=== PATIENT | female | born 2000 | race Caucasian/White ===

== ENCOUNTER 2019-04-10 23:38 | Emergency (ER) | payer MEDICAID, SELFPAY ==
[2019-04-10 23:39] VITALS: BP 136/66; PULSE 112; RESP 16; TEMP 36.2; O2SAT 100
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
[2019-04-11] MEDS: SODIUM CHLORIDE 0.9% IV 1,000 ML 999 ML IV CONT (00:44)
[2019-04-11] MEDS: PROMETHAZINE HCL 25 MG/ML AMPUL 12.5 MG IV PUSH (00:44)
[2019-04-11 00:51] LABS: Basophils Percent Auto 0.3 % (0.2-1.2); Eosinophils Absolute Auto 0.1 K/mm3 (0-0.3); Eosinophils Percent Auto 0.9 % (0-4.4); Hematocrit 40.8 % (37.0-47.0); Hemoglobin 13.5 g/dL (12.0-15.0); Immature Granulocyte Absolute 0.02 K/mm3 (0.00-0.031); Immature Granulocyte Percent A 0.3 % (0-0.5); Immature Platelet Fraction Pct 5.7 % (0.9-11.2); Lymphocytes Percent Auto 12.9 % (18.3-44.2); Mean Corpuscular HGB Conc 33.1 g/dl (32-36); Mean Corpuscular Hemoglobin 28.7 pg (26-34); Mean Corpuscular Volume 86.6 fl (80-100); Mean Platelet Volume 11.8 fl (7.4-10.4); Monocytes Absolute Auto 0.7 K/mm3 (0.1-0.6); Monocytes Percent Auto 9.3 % (2.6-8.5); Neutrophils Absolute Auto 5.3 K/mm3 (1.3-6.7); Neutrophils Percent Auto 76.3 % (45.5-73.1); Platelet Count Result 120 k/mm3 (150-375); Red Blood Count 4.71 M/mm3 (4.2-5.4); Red Cell Distribution Width 12.9 % (11.5-14.5)
[2019-04-11 01:02] LABS: Alanine Aminotransferase 20 U/L (4-35); Albumin Level 4.8 g/dL (3.5-5.1); Alkaline Phosphatase 60 U/L (38-126); Aspartate Amino Transferase 30 U/L (14-36); Bilirubin,Total 0.5 mg/dL (0.2-1.3); Blood Urea Nitrogen 10 mg/dL (7-17); Calcium 9.6 mg/dL (8.4-10.2); Carbon Dioxide 25 mmol/L (22-30); Chloride 97 mmol/L (98-107); Estimated CRCL calculation 141 ml/min; Estimated Glomerular Filt Rate > 60; Glucose 83 mg/dL (65-105); Lipase 49 U/L (23-300); Potassium 3.5 mmol/L (3.4-5.0); Sodium 137 mmol/L (137-145)
[2019-04-11 03:46] LABS: Add Urine Microscopic? YES; Appearance Urine Cloudy (Clear); Bacteria Urine Trace /hpf; Bilirubin Urine Negative (Negative); Blood Urine 1+ (Negative); Color Urine Yellow (Yellow); Glucose Urine UA Negative (Negative); Ketones Urine Negative (Negative); Leukocyte Esterase Ur 1+ LEU/UL (Negative); Mucus Urine Rare /lpf; Nitrate Urine Negative (Negative); Protein Urine Negative (Negative); Specific Grav Ur 1.018 (1.001-1.035); Squamous Epithelial Cell Urine Many /hpf (Few); Urobilinogen Urine Negative mg/dL (<2.0); WBC Urine 16-20 /hpf
[2019-04-11] MEDS: ONDANSETRON INJ 4 MG/2 ML VIAL IV PUSH (03:55)
[2019-04-11 04:44] VITALS: BP 122/60; PULSE 111; RESP 18; O2SAT 100
[2019-04-11 05:14] VITALS: BP 128/77; PULSE 102; RESP 18; O2SAT 98
== END 2019-04-11 05:14 | disposition home or self-care (01) ==
PROVIDERS: Emergency Provider Emergency Medicine
DX: O21.9 Vomiting of pregnancy, unspecified (principal); Z3A.11 11 weeks gestation of pregnancy
CPT/HCPCS: 36415; 80053; 81001; 83690; 85025; 85055; 87086; 87088; 96361; 96374; 96375; 99284; J2405; J2550; J7030

== ENCOUNTER → 2019-04-15 13:47 | Outpatient (CLI) | payer MEDICAID, SELFPAY ==
--- NOTE | ~2019-04-15 | US_ITS ---
EXAMINATION: US OB transvaginal DATE: 04/15/2019 14:20 INDICATION: Miscarriage. Evaluate for viability. TECHNIQUE: Real-time transabdominal and transvaginal obstetric ultrasound. FINDINGS: Comparison ultrasound dated 03/21/2019 The uterus measures 9 x 6.2 x 6.3 cm. There is an intrauterine gestational sac, with pole ident ified. The crown rump length measures 1.9 cm, which correlates with a estimated gestational age of 8 weeks 3 days. heart tones are identified measuring 11/22/2019. There is an heterogeneous area adjacent to the gestational sac on the right measuring 2 x 1.5 x 0.9 cm, likely a subchorionic hemor rhage. Uterus is retroverted. There is an echogenic focus in the left ovary measuring 1.6 x 1.4 x 1 c m which may represent hemorrhagic cyst or calcification. IMPRESSION: 1. SL IUP with an EGA of 8 weeks, 3 days (EDC by current ultrasound of 11/22/2019). 2: Heterogeneous area to the right of the gestational sac measuring 2 x 1.5 x 0.9 cm, possibly a sma ll subchorionic hemorrhage. Reviewed, dictated and finalized at location A. RESS RENOVATOR IMPRESSION: 1. SL IUP with an EGA of 8 weeks, 3 days (EDC by current ultrasound of 0). 2: Heterogeneous area to the right of the gestational sac measuring 2 x 1.5 x 0.9 cm, possibly a small subchorionic hemorrhage.
== END ==
PROVIDERS: Visit Provider Obstetrics & Gynecology
DX: O20.0 Threatened abortion (principal); Z3A.08 8 weeks gestation of pregnancy
CPT/HCPCS: 99199; 76817

== ENCOUNTER 2019-04-29 14:16 | Outpatient (CLI) | payer OTHER, SELFPAY ==
--- NOTE | ~2019-04-29 | US_ITS ---
EXAMINATION: US OB follow up EXAM DATE: 04/29/2019 15:04 INDICATION: Follow-up subchorionic hemorrhage. First trimester. TECHNIQUE: Pelvic obstetrical transabdominal sonogram was performed by a technologist. There are mu ltiple grayscale and Doppler images available for interpretation. Comparison is made to prior examina tion from 04/15/2019. FINDINGS: Uterus measures 13.4 x 7.8 x 5.0 cm. There is intrauterine gestation sac. pole with heart rate confirmed at 161 beats per minute. The 3 cm crown-rump length corresponds to estimated g estational age by ultrasound of 10 weeks 0 days, estimated date of confinement 11/25/2019. Yolk sac i s identified. Again there is a region in subchorionic location which is heterogeneous in echogenici ty, size unchanged. Possible subchorionic hemorrhage measuring 2.0 x 1.3 x 1.3 cm. Ovaries are morph ologically normal. IMPRESSION: Persistent small subchorionic heterogeneous region, possible subchorionic hemorrhage. Fe leidy heart rate 161 bpm. Reviewed, dictated and finalized at location A. TEACHER IMPRESSION: Persistent small subchorionic heterogeneous region, possible subch orionic hemorrhage. heart rate 161 bpm.
== END 2019-04-29 14:17 | disposition home or self-care (01) ==
LOC: ANHIMG 14:22
PROVIDERS: Visit Provider Obstetrics & Gynecology
DX: Z34.90 Encounter for supervision of normal pregnancy, unspecified, unspecified trimester (principal); O36.8911 Maternal care for other specified fetal problems, first trimester, fetus 1
CPT/HCPCS: 76816

== ENCOUNTER 2019-05-13 11:12 | Outpatient (CLI) | payer OTHER, SELFPAY ==
--- NOTE | ~2019-05-13 | US_ITS ---
EXAMINATION: US OB <=14 wk fetus w TV DATE: 05/13/2019 12:35 INDICATION: Subchorionic hemorrhage follow-up, first trimester TECHNIQUE: Real-time pelvic transabdominal and transvaginal ultrasound was performed. COMPARISON: 04/29/2019, 02/12/2018 FINDINGS: The uterus measures 11.3 x 8.3 x 7.8 cm. There is an intrauterine gestational sac. No pers istent subchorionic hemorrhage is identified. heart motion is identified measuring 147 beats pe r minute (bpm) by M-mode Doppler. The crown rump length measures 5.7 cm , which correlates with an estimated gestational age of 12 weeks and 2 day(s) (+/-) 8 day(s). The right ovary measures 3.8 x 1.6 x 3.3 cm. The left ovary measures 2.9 x 2.6 x 2.0 cm and contains a 1.3 cm echogenic focus. There is no free fluid in the pelvis. IMPRESSION: 1. Live intrauterine with an estimated gestational age of 12 weeks and 2 day(s) (+/-) 8 day (s) and an estimated delivery date of 11/23/2019. 2. No persistent subchorionic hematoma identified. 3. Chronic echogenic focus of the left ovary which may reflect a dermoid. Reviewed, dictated and finalized at location A. IMPRESSION: 1. Live intrauterine with an estimated gestational age of 12 weeks an d 2 day(s) (+/-) 8 day(s) and an estimated delivery date of 11/23/2019. 2. No persistent subchorionic hematoma identified. 3. Chronic echogenic focus of the left ovary which may reflect a dermoid.
== END 2019-05-13 11:13 | disposition home or self-care (01) ==
LOC: ANHIMG 11:18
PROVIDERS: Visit Provider Obstetrics & Gynecology
DX: O41.8X99 Other specified disorders of amniotic fluid and membranes, unspecified trimester, other fetus (principal); Z3A.12 12 weeks gestation of pregnancy
CPT/HCPCS: 76801; 76817

== ENCOUNTER 2019-06-05 05:07 | Emergency (ER) | payer OTHER, SELFPAY ==
[2019-06-05] VITALS (7 sets, daily range): BP systolic 101–120; BP diastolic 54–76; PULSE 69–81; RESP 16–18; TEMP 37.2–37.6; O2SAT 99–100
--- NOTE | ~2019-06-05 | US_ITS ---
EXAMINATION: US OB >= 14 weeks Fetus DATE: 06/05/2019 07:42 INDICATION: Abdominal pain. Spotting. TECHNIQUE: Real-time ultrasound of the pelvis was performed. COMPARISON: Ultrasound 05/13/2019, 03/21/19, 04/15/19 FINDINGS: There is a single living fetus in variable presentation. The placenta is anterior and covers the int ernal cervical os. heart rate is 139 beats per minute (bpm). The amniotic fluid index is 11.0 c m, which is normal. The cervical length is 2.6 cm on transabdominal images, which is normal. The following biometric data were obtained: Biparietal diameter (BPD): 3.3 cm; head circumference (HC): 11.8 cm; abdominal circumference (AC): 9. 4 cm; femur length (FL): 1.9 cm. These measurements are concordant. Estimated weight is 131 g +/- 20 g, which correlates with 37th percentile when 11/22/19 is used as estimated date of delivery. As single measurements, these parameters are each equal to the following estimated gestational ages: BPD: 16 weeks 2 days. HC: 15 weeks 6 days. AC: 15 weeks 4 days. FL: 15 weeks 5 days. estimated gestational age based solely on measurements from this exam is 15 weeks 6 days +/- 1 weeks 1 days. IMPRESSION: 1. Single living fetus in variable presentation. 2. Estimated weight is 131 g +/- 20 g, which correlates with 37th percentile when 11/22/19 is u sed as estimated date of delivery. This date was set by ultrasound on 04/15/2019. 3. Placenta previa. Reviewed, dictated and finalized at location A. IMPRESSION: 1. Single living fetus in variable presentation. 2. Estimated weight is 131 g +/- 20 g, which correlates with 37th percen tile when 11/22/19 is used as estimated date of delivery. This date was set by u ltrasound on 04/15/2019. 3. Placenta previa.
--- NOTE | 2019-06-05 05:24 | ED.PREGNANCY ---
HPI - General Chief complaint: DESK REPORTER <Wing Parson DO - Last Filed: 06/05/19 20:02> Stated complaint: 16 wks preg, vag bleed <Wing Parson DO - Last Filed: 06/05/19 20:02> Time Seen by Provider: 06/05/19 05:11 <Wing Parson DO - Last Filed: 06/05/19 20:02> Source: RN notes reviewed <Wing Parson DO - Last Filed: 06/05/19 20:02> History of Present Illness HPI Narrative: Patient presents emergency department from home for vaginal bleeding. Patient states that she is currently 16 weeks [address] followed by Dr. Woodson. States that night at approximately 10 PM began to have some vaginal bleeding that she describes as spotting. States she also developed some lower abdominal cramping with the symptoms. Patient states the bleeding seems to have decreased but she continues to have cramping. She states that she was last seen by Dr. Woodson 2 weeks ago and states that she was told she had some hemorrhaging by her baby. Patient denies any fevers or chills states she did have one episode of emesis with the cramping. She states she took no previous medication for cramping <DO Cindy Bautista Last Filed: 06/05/19 20:02> Related Data Home medications: Home Medications Medication Instructions Recorded Confirmed PNV cmb#95-ferrous fumarate-FA 1 tablet PO DAILY 04/10/19 04/10/19 [] folic acid 06/05/19 progesterone micronized mg 06/05/19 <Wing Parson DO - Last Filed: 06/05/19 20:02> Allergies/Adverse reactions: Allergies Allergy/AdvReac Type Severity Reaction Status Date / Time No Known Allergies Allergy Verified 06/05/19 05:25 <Wing Parson DO - Last Filed: 06/05/19 20:02> Review of Systems Review of Systems: Narrative: Gen.: Denies fevers or chills ENT: Denies congestion Respiratory: Denies shortness of breath or cough CV: Denies chest pain or palpitations GI: Reports lower abdominal pain described as cramping, reports one episode nausea vomiting see HPI Musculoskeletal: Denies back pain or muscle pain Neuro: Denies numbness, tingling, weakness or focal weakness Skin: Denies rash Except as documented, all other systems reviewed and negative <Wing Parson DO - Last Filed: 06/05/19 20:02> [facility] Past Medical History Medical History: Medical History Patient denies significant medical history <Wing Parson DO - Last Filed: 06/05/19 20:02> Social History Social History: Social History Smoking status: Never smoker Gender identity (if verbalized by the patient): Female <Wing Parson DO - Last Filed: 06/05/19 20:02> Exam Narrative: Exam Narrative: APPEARANCE: No acute distress, nontoxic, resting in bed EYES: EOMI HEENT: Normocephalic, atraumatic, OMM RESPIRATORY: No respiratory distress Clear to auscultation bilaterally with no rhonchi wheezing or rales. CARDIOVASCULAR: Regular rate and rhythm without murmurs rubs or gallops. ABDOMINAL: Soft, nondistended, tender palpation suprapubic region, no tenderness in right upper quadrant, left upper quadrant, right lower quadrant left lower quadrant, rebound or guarding : Normal external exam, small amount of dark brown cervix is closed MUSCULOSKELETAl: Moves all extremities. No clubbing, cyanosis or edema. NEURO: Awake and alert. Following commands, speech normal, no focal deficits SKIN:: Warm, dry. No rashes lesions or abrasions PSYCHIATRIC: Normal affect/mood, <Wing Parson DO - Last Filed: 06/05/19 20:02> Course Course Emergency Course: Reviewed old records. Patient with blood bank results from 02/12/2018 showing A+ blood type <Wing Parson DO - Last Filed: 06/05/19 20:02> Vital Signs Vital signs: Vital Signs Temperature 99.6 F 06/05/19 05:17 Pulse Rate 81 06/05/19 05:17 Respira
[2019-06-05] MEDS: LACTATED RINGERS 1,000 ML 999 ML IV CONT (05:48)
[2019-06-05 05:52] LABS: Basophils Percent Auto 0.3 % (0.2-1.2); Eosinophils Absolute Auto 0.1 K/mm3 (0-0.3); Eosinophils Percent Auto 1.1 % (0-4.4); Hematocrit 31.1 % (37.0-47.0); Hemoglobin 10.8 g/dL (12.0-15.0); Immature Granulocyte Absolute 0.02 K/mm3 (0.00-0.031); Immature Granulocyte Percent A 0.3 % (0-0.5); Lymphocytes Absolute Auto 1.96 K/mm3 (0.9-3.2); Lymphocytes Percent Auto 27.8 % (18.3-44.2); Mean Corpuscular HGB Conc 34.7 g/dl (32-36); Mean Corpuscular Hemoglobin 29.9 pg (26-34); Mean Corpuscular Volume 86.1 fl (80-100); Mean Platelet Volume 12.3 fl (7.4-10.4); Monocytes Absolute Auto 0.6 K/mm3 (0.1-0.6); Monocytes Percent Auto 8.4 % (2.6-8.5); Neutrophils Absolute Auto 4.4 K/mm3 (1.3-6.7); Neutrophils Percent Auto 62.1 % (45.5-73.1); Platelet Count Result 137 k/mm3 (150-375); Red Blood Count 3.61 M/mm3 (4.2-5.4); Red Cell Distribution Width 13.4 % (11.5-14.5); White Blood Count 7.1 K/mm3 (4.5-10.0)
[2019-06-05 06:19] LABS: Alanine Aminotransferase 11 U/L (4-35); Albumin Level 3.9 g/dL (3.5-5.1); Alkaline Phosphatase 45 U/L (38-126); Aspartate Amino Transferase 26 U/L (14-36); Bilirubin,Total 0.5 mg/dL (0.2-1.3); Blood Urea Nitrogen 6 mg/dL (7-17); Calcium 9.2 mg/dL (8.4-10.2); Carbon Dioxide 23 mmol/L (22-30); Chloride 106 mmol/L (98-107); Estimated CRCL calculation 196 ml/min; Estimated Glomerular Filt Rate > 60; Glucose 87 mg/dL (65-105); Potassium 3.9 mmol/L (3.4-5.0); Sodium 135 mmol/L (137-145)
== END 2019-06-05 09:14 | disposition home or self-care (01) ==
PROVIDERS: Emergency Provider Emergency Medicine
DX: O44.02 Complete placenta previa NOS or without hemorrhage, second trimester (principal); Z3A.16 16 weeks gestation of pregnancy
CPT/HCPCS: 36415; 76805; 80053; 85025; 96361; 96374; 99284; J0131; J7120

== ENCOUNTER 2019-06-08 10:19 | Outpatient (CLI) | payer OTHER, SELFPAY ==
--- NOTE | ~2019-06-08 | US_ITS ---
EXAMINATION: US OB follow up DATE: 06/08/2019 11:19 INDICATION: Placenta previa and cramping during second trimester of . TECHNIQUE: Real-time ultrasound of the pelvis was performed. The interpreting radiologist was not pre sent for the study. COMPARISON: 06/05/2019 FINDINGS: There is a single living fetus in transverse lie with head to maternal left. The placenta is anterior with caudal margin 4.4 cm from the internal cervical os. heart rate is 147 beats per minute (b pm). The amniotic fluid is subjectively normal. The following biometric data were obtained: BPD: 3.6 cm -> 17 weeks 1 days Head circumference: 13.4 cm -> 16 weeks 6 days Abdominal circumference: 10.7 cm -> 16 weeks 4 days Femur length: 2.1 cm -> 16 weeks 1 days These measurements are concordant. Head circumference to abdominal circumference ratio: 1.25 (normal range 1.07-1.30). Estimated weight: 157 g (+/-) 23 g. or 6 oz. (+/-) 1 oz. IMPRESSION: 1. Single living fetus in transverse lie with heart rate of 147 bpm. 2. Anterior placenta with caudal margin 4.4 cm from the internal cervical os. 3. Estimated weight is 62nd percentile by Hadlock criteria when 11/22/2019 is used as the estima jessee date of delivery (AUDREY). Please correlate with clinical information or earlier ultrasounds for mos t accurate AUDREY. Reviewed, dictated and finalized at location A. IMPRESSION: 1. Single living fetus in transverse lie with heart rate of 147 bpm. 2. Anterior placenta with caudal margin 4.4 cm from the internal cervical os. 3. Estimated weight is 62nd percentile by Hadlock criteria when 11/22/2019 is used as the estimated date of delivery (AUDREY). Please correlate with clinica l information or earlier ultrasounds for most accurate AUDREY.
== END 2019-06-08 10:20 | disposition home or self-care (01) ==
PROVIDERS: Visit Provider Obstetrics & Gynecology
DX: Z34.90 Encounter for supervision of normal pregnancy, unspecified, unspecified trimester (principal); Z3A.00 Weeks of gestation of pregnancy not specified
CPT/HCPCS: 76816

== ENCOUNTER 2019-08-22 23:44 | Observation (INO) | payer OTHER, SELFPAY ==
--- NOTE | 2019-08-22 23:43 | PC.NURSE ---
spoke with Slime MCCORMACK in L&D dept, pt taken via ED w/c to L&D by Wellington WHITT.
--- NOTE | 2019-08-22 23:44 | OBADM ---
This patient, Nona Stanley, admitted to the OB room OB Post 117 for observation. Patient/family oriented to hospital policies and general routines including ID bracelet, bed and alarms, visiting hours, pain management, procedures, bathroom and other care routines, personal items, smoking policy, room service/diet, and visiting hours. Patient/Family are encouraged to report perceived risks to care and to ask questions if they do not understand what they are told or what they should do.
[2019-08-23 00:10] VITALS: BP 114/50; PULSE 100
[2019-08-23 00:15] VITALS: BP 112/55; PULSE 97
[2019-08-23 01:03] VITALS: TEMP 36.7
[2019-08-23 01:15] VITALS: BMI 33.5
[2019-08-23 01:30] VITALS: BP 109/58; PULSE 86
--- NOTE | 2019-09-17 08:22 | PM.OBTRLD ---
OB - Triage/Final Diagnosis Visit Information Reason for evaluation: threatened labor
== END 2019-08-23 03:09 | disposition home or self-care (01) ==
PROVIDERS: Admitting Provider Obstetrics & Gynecology; Visit Provider Obstetrics & Gynecology
DX: O47.03 False labor before 37 completed weeks of gestation, third trimester (principal); Z3A.32 32 weeks gestation of pregnancy
CPT/HCPCS: G0378; G0379

== ENCOUNTER 2019-09-11 00:47 | Observation (INO) | payer OTHER, SELFPAY ==
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
[2019-09-11 00:34] VITALS: BP 122/70; PULSE 115; RESP 16; TEMP 37.2; O2SAT 100
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
--- NOTE | 2019-09-11 00:41 | PC.NURSE ---
Gave report to Moira MCCORMACK in OB pt transported via stretcher to OB.
[2019-09-11 01:03] VITALS: TEMP 36.5
[2019-09-11 01:13] VITALS: BMI 33.8
--- NOTE | 2019-09-11 01:22 | OBADM ---
This patient, Nona Stanley, admitted to the OB room OB Post 116 for observation. Patient/family oriented to hospital policies and general routines including ID bracelet, bed and alarms, visiting hours, pain management, procedures, bathroom and other care routines, personal items, smoking policy, room service/diet, and visiting hours. Patient/Family are encouraged to report perceived risks to care and to ask questions if they do not understand what they are told or what they should do.
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
[2019-09-11 01:36] VITALS: BP 98/40; PULSE 103
[2019-09-11 02:00] VITALS: BP 88/54; PULSE 104
[2019-09-11 02:28] LABS: Basophils Percent Auto 0.2 % (0.2-1.2); Eosinophils Absolute Auto 0.1 K/mm3 (0-0.3); Eosinophils Percent Auto 0.7 % (0-4.4); Hematocrit 29.1 % (37.0-47.0); Hemoglobin 9.8 g/dL (12.0-15.0); Immature Granulocyte Absolute 0.06 K/mm3 (0.00-0.031); Immature Granulocyte Percent A 0.5 % (0-0.5); Lymphocytes Absolute Auto 1.96 K/mm3 (0.9-3.2); Lymphocytes Percent Auto 17.1 % (18.3-44.2); Mean Corpuscular HGB Conc 33.7 g/dl (32-36); Mean Corpuscular Hemoglobin 30.5 pg (26-34); Mean Corpuscular Volume 90.7 fl (80-100); Mean Platelet Volume 12.1 fl (7.4-10.4); Monocytes Percent Auto 8.3 % (2.6-8.5); Neutrophils Absolute Auto 8.4 K/mm3 (1.3-6.7); Neutrophils Percent Auto 73.2 % (45.5-73.1); Platelet Count Result 122 k/mm3 (150-375); Red Blood Count 3.21 M/mm3 (4.2-5.4); Red Cell Distribution Width 13.2 % (11.5-14.5); White Blood Count 11.4 K/mm3 (4.5-10.0)
[2019-09-11 02:41] VITALS: BP 103/59; PULSE 96
[2019-09-11 02:41] LABS: Partial Thromboplastin Time 26.4 SECONDS (22.3-36.8)
[2019-09-11 02:42] LABS: Alanine Aminotransferase 8 U/L (4-35); Albumin Level 3.6 g/dL (3.5-5.1); Alkaline Phosphatase 83 U/L (38-126); Aspartate Amino Transferase 15 U/L (14-36); Bilirubin,Total 0.7 mg/dL (0.2-1.3); Blood Urea Nitrogen 6 mg/dL (7-17); Calcium 9.4 mg/dL (8.4-10.2); Carbon Dioxide 24 mmol/L (22-30); Chloride 104 mmol/L (98-107); Estimated CRCL calculation 181 ml/min; Estimated Glomerular Filt Rate > 60; Glucose 91 mg/dL (65-105); Potassium 3.7 mmol/L (3.4-5.0); Sodium 134 mmol/L (137-145)
[2019-09-11 03:04] LABS: Fibrinogen 283 mg/dl (215-510)
[2019-09-11 08:10] VITALS: BP 115/62; PULSE 99; TEMP 36.4
--- NOTE | 2019-09-11 09:16 | PM.OBTRLD ---
OB - Triage/Final Diagnosis Evaluation Laboratory results: Laboratory Tests 09/11/19 09/11/19 09/11/19 02:15 02:15 02:15 WBC 11.4 H RBC 3.21 L Hgb 9.8 L Hct 29.1 L MCV 90.7 MCH 30.5 MCHC 33.7 RDW 13.2 Plt Count 122 L MPV 12.1 H Immature Gran % (Auto) 0.5 Neut % (Auto) 73.2 H Lymph % (Auto) 17.1 L [place] % (Auto) 8.3 Eos % (Auto) 0.7 Baso % (Auto) 0.2 Lymph # (Auto) 1.96 [place] # (Auto) 1.0 H Eos # (Auto) 0.1 Baso # (Auto) 0.0 Abs Immat Gran (auto) 0.06 H Absolute Neuts (auto) 8.4 H Absolute Nucleated RBC 0.0 Nucleated RBC % 0.0 APTT 26.4 Fibrinogen 283 Sodium Potassium Chloride Carbon Dioxide BUN Creatinine Estim Creat Clear Calc Estimated GFR Glucose Calcium Total Bilirubin AST ALT Alkaline Phosphatase Total Protein Albumin Blood Type A Positive Antibody Screen Negative KB Hemoglobin Negative 09/11/19 02:15 WBC RBC Hgb Hct MCV MCH MCHC RDW Plt Count MPV Immature Gran % (Auto) Neut % (Auto) Lymph % (Auto) [place] % (Auto) Eos % (Auto) Baso % (Auto) Lymph # (Auto) [place] # (Auto) Eos # (Auto) Baso # (Auto) Abs Immat Gran (auto) Absolute Neuts (auto) Absolute Nucleated RBC Nucleated RBC % APTT Fibrinogen Sodium 134 L Potassium 3.7 Chloride 104 Carbon Dioxide 24 BUN 6 L Creatinine 0.40 L Estim Creat Clear Calc 181 Estimated GFR > 60 Glucose 91 Calcium 9.4 Total Bilirubin 0.7 AST 15 ALT 8 Alkaline Phosphatase 83 Total Protein 7.0 Albumin 3.6 Blood Type Antibody Screen KB Hemoglobin Vital signs: Vital Signs - 24 hr 09/11/19 00:34 09/11/19 01:03 09/11/19 01:36 Temperature 37.2 C 36.5 C Pulse Rate 115 H 103 H Respiratory Rate 16 Blood Pressure 122/70 98/40 L Pulse Oximetry 100 09/11/19 02:00 09/11/19 02:41 09/11/19 08:10 Temperature 36.4 C Pulse Rate 104 H 96 99 Respiratory Rate Blood Pressure 88/54 L 103/59 L 115/62 Pulse Oximetry Final Diagnosis (1) Abdominal trauma: Code(s): S39.91XA - Unspecified injury of abdomen, initial encounter Status: Acute
[2019-09-16 20:52] LABS: Thrombin Time 14 sec (13-19)
== END 2019-09-11 09:40 | disposition other institution (70) ==
PROVIDERS: Admitting Provider Obstetrics & Gynecology; Visit Provider Obstetrics & Gynecology
DX: O26.893 Other specified pregnancy related conditions, third trimester (principal); S39.91XA Unspecified injury of abdomen, initial encounter; Z3A.35 35 weeks gestation of pregnancy; Y04.2XXA Assault by strike against or bumped into by another person, initial encounter
CPT/HCPCS: 36415; 76815; 80053; 84112; 85025; 85384; 85460; 85670; 85730; 86850; 86900; 86901; G0378; G0379

== ENCOUNTER 2019-09-20 15:47 | Observation (INO) | payer OTHER, SELFPAY ==
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
[2019-09-20 16:15] VITALS: TEMP 35.7
[2019-09-20 16:16] VITALS: BP 116/59; PULSE 91
[2019-09-20 16:20] VITALS: BMI 39.4
[2019-09-20 16:31] VITALS: BP 113/62; PULSE 94
[2019-09-20 16:46] VITALS: BP 111/65; PULSE 85
[2019-09-20 17:01] VITALS: BP 108/63; PULSE 92
[2019-09-20 17:16] VITALS: BP 108/62; PULSE 88
--- NOTE | 2019-09-20 18:00 | PC.NURSE ---
Pt to ultrasound per wheelchair.
--- NOTE | 2019-09-30 08:55 | PM.OBDSVD ---
DS: Admitting Diagnosis Admitting Diagnosis Admitting Diagnosis: labor abdominal trauma DS: Discharge Diagnosis Discharge Diagnosis (1) Abdominal trauma: Code(s): S39.91XA - Unspecified injury of abdomen, initial encounter Status: Acute OB - DS: Summary Hospital Course Time spent discussing smoking cessation with patient: 3 to 10 minutes OB Procedures : None OB Procedures Intrapartum: Other OB Procedures: : None Status at Discharge Functional status at discharge: independent ambulation Overall status at discharge: patient is back to baseline Time Spent with Patient Time attestation: Total time spent providing and/or coordinating discharge services: Time spent: Less than 30 minutes Discharge Plan Discharge Attending physician on discharge: Todd Woodson Consulting providers: Ace Gonzalez Discharging Clinician: Todd Woodson Anticipated Discharge Date/Time: 09/20/19 20:47 Patient Disposition: Home, Self-Care Activity: as tolerated Diet: regular Wound Care Instructions: follow printed instructions Discharge Instructions: OB ANTEPARTUM DISCHARGE INSTRUCTIONS This information is given to help you properly care for yourself at home after your discharge from the hospital. Follow these instructions until your doctor tells you otherwise. DIET: Eat Three Well Balanced Meals per Day Drink at Least Eight 8-Ounce Glasses of Caffeine-Free Beverages Daily Additional Diet Instructions: ACTIVITY: As Tolerated Additional Activity Instructions: RETURN TO LABOR AND DELIVERY IF YOU HAVE: Any Change In Baby's Normal Movement Pattern More than 6 Contractions in an Hour Vaginal Bleeding Warning Signs of Pre-term Labor as per Handout Additional Reasons to Return to Labor and Delivery: Contractions may feel like abdominal pain, tightening, cramping, pressure, back ache, or thigh ache. 24 Hour Urine Collection: Continue 24 hour urine collection until at . When collection is completed, return specimen to the [facility]. See handout for 24 hour urine collection. OTHER INSTRUCTIONS: FOLLOW-UP CARE: Keep Next Scheduled Appointment To see in/on Valuables released to patient or family? Medications from home returned to patient? I Acknowledge Receipt of and Understand the Above Instructions IF YOU HAVE ANY QUESTIONS REGARDING THESE INSTRUCTIONS, PLEASE CALL [phone]. IF PROBLEMS ARISE, CALL YOUR PROVIDER. IF EMERGENCY CARE IS NEEDED, [facility]S EMERGENCY ROOM IS AVAILABLE 24 HOURS A DAY. Stand Alone Forms: General Discharge Information Follow-up/Referrals: Todd Woodson MD [Physician] - Discharge Medications: Continued PNV cmb#95-ferrous fumarate-FA [] 28 mg iron- 800 mcg tablet 1 tablet PO DAILY RF: 0 folic acid 1 mg tablet See Rx Instructions .ROUTE .COMPLEX RF: 0 No Action nifedipine 30 mg Tablet Extended Release 24hr 30 mg PO DAILY RF: 0 Date of admission: 09/20/19 15:47 Primary Care Provider: PHYSICIAN,HAIR BALER Admitting Provider: Todd Woodson Interventions: Discharge Disposition Last Done: 09/20/19 18:25 Discharge Date/Time: 09/20/19 18:30 Attending physician on admission: Todd Woodson Condition: Stable
--- NOTE | 2019-09-30 08:56 | PM.OBDSVD ---
DS: Admitting Diagnosis Admitting Diagnosis Admitting Diagnosis: Unspecified injury of abdomen, initial encounter OB - DS: Summary OB Procedures : None OB Procedures Intrapartum: Other OB Procedures: : Other Time Spent with Patient Time attestation: Total time spent providing and/or coordinating discharge services: Exam Const: General: comfortable Limitations: no limitations Chest: Breast/axilla inspection: normal inspection of the breasts Resp: Effort & Inspection: normal respiratory effort Cardio: Rate: regular rate GI: GI Palp: Yes Soft to palpation Percussion: Yes normal to percussion Auscultation: normal bowel sounds : General: Yes bladder normal to inspection Manual OB Exam: Not dilated nor effaced Psych: Appearance: grossly normal Mental Status: mental status grossly normal Affect: normal affect Attitude: cooperative Thought content: Yes Normal thought content present Judgement: Good judgement present (Psych) Discharge Plan Discharge Attending physician on discharge: Todd Woodson Consulting providers: Ace Gonzalez Discharging Clinician: Todd Woodson Anticipated Discharge Date/Time: 09/20/19 20:47 Patient Disposition: Home, Self-Care Activity: as tolerated Diet: regular Wound Care Instructions: follow printed instructions Discharge Instructions: OB ANTEPARTUM DISCHARGE INSTRUCTIONS This information is given to help you properly care for yourself at home after your discharge from the hospital. Follow these instructions until your doctor tells you otherwise. DIET: Eat Three Well Balanced Meals per Day Drink at Least Eight 8-Ounce Glasses of Caffeine-Free Beverages Daily Additional Diet Instructions: ACTIVITY: As Tolerated Additional Activity Instructions: RETURN TO LABOR AND DELIVERY IF YOU HAVE: Any Change In Baby's Normal Movement Pattern More than 6 Contractions in an Hour Vaginal Bleeding Warning Signs of Pre-term Labor as per Handout Additional Reasons to Return to Labor and Delivery: Contractions may feel like abdominal pain, tightening, cramping, pressure, back ache, or thigh ache. 24 Hour Urine Collection: Continue 24 hour urine collection until at . When collection is completed, return specimen to the [facility]. See handout for 24 hour urine collection. OTHER INSTRUCTIONS: FOLLOW-UP CARE: Keep Next Scheduled Appointment To see in/on Valuables released to patient or family? Medications from home returned to patient? I Acknowledge Receipt of and Understand the Above Instructions IF YOU HAVE ANY QUESTIONS REGARDING THESE INSTRUCTIONS, PLEASE CALL [phone]. IF PROBLEMS ARISE, CALL YOUR PROVIDER. IF EMERGENCY CARE IS NEEDED, [facility] EMERGENCY ROOM IS AVAILABLE 24 HOURS A DAY. Stand Alone Forms: General Discharge Information Follow-up/Referrals: Todd Woodson MD [Physician] - Discharge Medications: Continued PNV cmb#95-ferrous fumarate-FA [] 28 mg iron- 800 mcg tablet 1 tablet PO DAILY RF: 0 folic acid 1 mg tablet See Rx Instructions .ROUTE .COMPLEX RF: 0 No Action nifedipine 30 mg Tablet Extended Release 24hr 30 mg PO DAILY RF: 0 Date of admission: 09/20/19 15:47 Primary Care Provider: PHYSICIAN,OIL PRODUCER Admitting Provider: Todd Woodson Interventions: Discharge Disposition Last Done: 09/20/19 18:25 Discharge Date/Time: 09/20/19 18:30 Attending physician on admission: Todd Woodson Condition: Stable
== END 2019-09-20 18:30 | disposition home or self-care (01) ==
PROVIDERS: Admitting Provider Obstetrics & Gynecology; Visit Provider Obstetrics & Gynecology
DX: O9A.213 Injury, poisoning and certain other consequences of external causes complicating pregnancy, third trimester (principal); S39.91XA Unspecified injury of abdomen, initial encounter; Z3A.36 36 weeks gestation of pregnancy; X58.XXXA Exposure to other specified factors, initial encounter
CPT/HCPCS: 76819; G0378; G0379

== ENCOUNTER 2019-09-28 17:44 | Observation (INO) | payer OTHER, SELFPAY ==
--- NOTE | ~2019-09-28 | US_ITS ---
EXAMINATION: US OB BPP wo non-stress EXAM DATE: 09/28/2019 18:19 INDICATION: , contractions. 3rd trimester. TECHNIQUE: Pelvic obstetrical transabdominal sonogram was performed by a technologist. There are mu ltiple grayscale and Doppler images available for interpretation. Comparison is made to prior examina tion from 01/21/2020. FINDINGS: There is a single fetus identified in vertex presentation with a heart rate of 135 beats pe r minute. The placenta is located in the anterior position. There is no sonographic evidence of retr oplacental hemorrhage identified. BIOPHYSICAL PROFILE (performed by the technologist) breathing (30 sec sustained breathing in 30 minutes): 2 out of 2 movement (3 gross body movements in 30 minutes): 2 out of 2 tone (one episode of eoedxoz-qywaoslvf-kaplprn limb movement): 2 out of 2 Amniotic fluid pocket (2 cm): 2 out of 2 Total score: 8 out of 8 IMPRESSION: 1. Single fetus with heart rate of 135 bpm. 2. Normal biophysical profile score of 8 out of 8. Reviewed, dictated and finalized at location A.
[2019-09-28 18:01] VITALS: BP 127/72; PULSE 102
[2019-09-28] MEDS: NIFEdipine 30 MG TAB.ER.24 PO (19:42)
[2019-09-28] MEDS: BETAMETHASONE SOD PHOS/ACETATE 30 MG/5 ML VIAL 12 MG IM (19:43)
--- NOTE | 2019-10-05 19:55 | P.DS_ITS ---
DS: Admitting Diagnosis Admitting Diagnosis Admitting Diagnosis: abdominal trauma DS: Discharge Diagnosis Discharge Diagnosis (1) Abdominal trauma: Code(s): S39.91XA - Unspecified injury of abdomen, initial encounter Status: Acute (2) Patient denies significant medical history: Status: Acute OB - DS: Summary OB Procedures : None OB Procedures Intrapartum: Other OB Procedures: : None Time Spent with Patient Time attestation: Total time spent providing and/or coordinating discharge services: Exam Const: General: comfortable Limitations: no limitations Chest: Breast/axilla inspection: normal inspection of the breasts Resp: Effort & Inspection: normal respiratory effort Cardio: Rate: regular rate GI: GI Palp: Yes Soft to palpation : General: Yes bladder normal to inspection Manual OB Exam: Not dilated nor effaced Psych: Appearance: grossly normal Affect: normal affect Attitude: cooperative Thought content: Yes Normal thought content present Judgement: Good judgement present (Psych) Discharge Plan Discharge Attending physician on discharge: Todd Woodson Consulting providers: Duke Canela Discharging Clinician: Todd Woodson Anticipated Discharge Date/Time: 09/28/19 19:54 Patient Disposition: Home, Self-Care Activity: may shower, unlimited and pelvic rest Diet: as tolerated Wound Care Instructions: follow printed instructions Discharge Instructions: routine Stand Alone Forms: General Discharge Information Follow-up/Referrals: Todd Woodson MD [Physician] - Discharge Medications: Continued PNV cmb#95-ferrous fumarate-FA [] 28 mg iron- 800 mcg tablet 1 tablet PO DAILY RF: 0 folic acid 1 mg tablet See Rx Instructions .ROUTE .COMPLEX RF: 0 nifedipine 30 mg Tablet Extended Release 24hr 30 mg PO DAILY RF: 0 Date of admission: 09/28/19 17:44 Primary Care Provider: PHYSICIAN,IRRIGATION TAX ASSESSOR COLLECTOR Admitting Provider: Todd Woodson Interventions: Discharge Disposition Last Done: 09/28/19 20:53 Discharge Date/Time: 09/28/19 20:00 Attending physician on admission: Todd Woodson
== END 2019-09-28 20:00 | disposition home or self-care (01) ==
PROVIDERS: Admitting Provider Obstetrics & Gynecology; Visit Provider Obstetrics & Gynecology
DX: O9A.213 Injury, poisoning and certain other consequences of external causes complicating pregnancy, third trimester (principal); S39.91XA Unspecified injury of abdomen, initial encounter; Z3A.31 31 weeks gestation of pregnancy
CPT/HCPCS: 76819; 96372; A9270; G0378; G0379; J0702

== ENCOUNTER 2019-09-29 19:20 | Outpatient (CLI) | payer OTHER, SELFPAY ==
[2019-09-29] MEDS: BETAMETHASONE SOD PHOS/ACETATE 30 MG/5 ML VIAL 12 MG IM (20:09)
== END 2019-09-29 19:21 | disposition home or self-care (01) ==
LOC: ANHOBOP 19:26
PROVIDERS: Family Provider Obstetrics & Gynecology; Visit Provider Obstetrics & Gynecology
DX: S39.91XA Unspecified injury of abdomen, initial encounter (principal); X58.XXXA Exposure to other specified factors, initial encounter
CPT/HCPCS: 96372; J0702

== ENCOUNTER 2019-10-01 13:33 | Outpatient (RCR) | payer OTHER, SELFPAY ==
--- NOTE | ~2019-10-01 | US_ITS ---
EXAMINATION: US OB BPP wo non-stress DATE: 10/01/2019 15:17 INDICATION: Decreased movement, third trimester TECHNIQUE: Real-time pelvic ultrasound was performed. The interpreting radiologist was not present fo r the study. COMPARISON: None. FINDINGS: There is a single living fetus in vertex presentation. The placenta is anterior. heart rate is 135 beats per minute (bpm). Biophysical profile performed by the technologist: breathing (30 sec sustained breathing in 30 minutes): 2 out of 2 movement (3 gross body movements in 30 minutes): 2 out of 2 tone (one episode of eekhlnf-lhrbpcmyr-otcozxl limb movement): 2 out of 2 Amniotic fluid pocket (2 cm): 2 out of 2 Total score: 8 out of 8 IMPRESSION: 1. Single living fetus in vertex presentation. 2. Biophysical profile 8 out of 8. Reviewed, dictated and finalized at location B.
[2019-10-01 15:25] VITALS: BP 117/55; PULSE 86
== END 2019-11-23 07:50 | disposition home or self-care (01) ==
LOC: ANHOBOP 13:33
PROVIDERS: Visit Provider Obstetrics & Gynecology
DX: O36.8130 Decreased fetal movements, third trimester, not applicable or unspecified (principal); Z3A.32 32 weeks gestation of pregnancy
CPT/HCPCS: 59025; 76819

== ENCOUNTER 2019-10-25 04:15 | Observation (INO) | payer OTHER, SELFPAY ==
[2019-10-25 04:36] VITALS: BP 104/46; PULSE 99
[2019-10-25 04:45] VITALS: BP 102/56; PULSE 92
[2019-10-25 04:58] LABS: Add Urine Microscopic? YES; Appearance Urine Clear (Clear); Bacteria Urine Trace /hpf; Bilirubin Urine Negative (Negative); Blood Urine Negative (Negative); Color Urine Yellow (Yellow); Glucose Urine UA Negative (Negative); Ketones Urine Negative (Negative); Leukocyte Esterase Ur 2+ LEU/UL (NEGATIVE); Mucus Urine Rare /lpf; Nitrate Urine Negative (Negative); Protein Urine Negative (Negative); RBC Urine 0-2 /hpf (0-2); Specific Grav Ur 1.012 (1.001-1.035); Squamous Epithelial Cell Urine Rare /hpf (Few); Urobilinogen Urine Negative mg/dL (<2.0)
[2019-10-25 05:00] VITALS: BP 114/59; PULSE 91
[2019-10-25 05:15] VITALS: BP 112/66; PULSE 96
[2019-10-25 05:20] VITALS: BMI 39.9
[2019-10-25 05:24] VITALS: TEMP 36.3
--- NOTE | 2019-10-27 17:59 | PM.OBTRLD ---
OB - Triage/Final Diagnosis Visit Information Reason for evaluation: threatened labor Evaluation Variability: Moderate (11-25) monitor accelerations: Present monitor decelerations: None Cervical dilation (cm): 1 Cervical effacement (%): 50 station: -3 Laboratory results: Laboratory Tests 10/25/19 04:46 Urine Color Yellow Urine Appearance Clear Urine pH 6.0 Ur Specific [place] 1.012 Urine Protein Negative Urine Glucose (UA) Negative Urine Ketones Negative Ur Blood (Man) Negative Urine Nitrate Negative Urine Bilirubin Negative Urine Urobilinogen Negative Ur Leukocyte Esterase 2+ H Urine RBC 0-2 Urine WBC 10-15 H Ur Squamous Epith Cells Rare Urine Bacteria Trace Urine Mucus Rare Final Diagnosis (1) False labor: Code(s): O47.9 - False labor, unspecified Status: Acute Plan: home
== END 2019-10-25 07:00 | disposition home or self-care (01) ==
PROVIDERS: Admitting Provider Obstetrics & Gynecology; Visit Provider Obstetrics & Gynecology
DX: O47.03 False labor before 37 completed weeks of gestation, third trimester (principal); Z3A.35 35 weeks gestation of pregnancy
CPT/HCPCS: 81001; 87086; 87088; G0378; G0379

== ENCOUNTER 2019-10-31 05:28 | Observation (INO) | payer OTHER, SELFPAY ==
[2019-10-31] VITALS (9 sets, daily range): BP systolic 109–124; BP diastolic 60–86; PULSE 90–105; RESP 20; TEMP 36.6; BMI 39.0
--- NOTE | 2019-10-31 05:28 | OBADM ---
This patient, Nona Stanley, admitted to the OB room Labor/Delivery/Recovery 107 for observation. Patient/family oriented to hospital policies and general routines including ID bracelet, bed and alarms, visiting hours, pain management, procedures, bathroom and other care routines, personal items, smoking policy, room service/diet, and visiting hours. Patient/Family are encouraged to report perceived risks to care and to ask questions if they do not understand what they are told or what they should do.
--- NOTE | 2019-10-31 11:00 | PM.OBTRLD ---
OB - Triage/Final Diagnosis Final Diagnosis (1) False labor: Code(s): O47.9 - False labor, unspecified Status: Acute
== END 2019-10-31 09:09 | disposition home or self-care (01) ==
PROVIDERS: Admitting Provider Obstetrics & Gynecology; Visit Provider Obstetrics & Gynecology
DX: O47.9 False labor, unspecified (principal); Z3A.00 Weeks of gestation of pregnancy not specified
CPT/HCPCS: G0378; G0379

== ENCOUNTER 2019-11-05 00:25 | Observation (INO) | payer OTHER, SELFPAY ==
[2019-11-05 00:37] VITALS: BP 125/68; PULSE 106
--- NOTE | 2019-11-05 02:09 | OBADM ---
This patient, Nona Stanley, admitted to the OB room Labor/Delivery/Recovery 104 for observation. Patient/family oriented to hospital policies and general routines including ID bracelet, bed and alarms, visiting hours, pain management, procedures, bathroom and other care routines, personal items, smoking policy, room service/diet, and visiting hours. Patient/Family are encouraged to report perceived risks to care and to ask questions if they do not understand what they are told or what they should do.
[2019-11-05 02:15] VITALS: BMI 38.9
--- NOTE | 2019-11-05 02:42 | PC.NURSE ---
0225 Pt here for low abdominal cramping and back pain. Has had contractions with this . Procardia recently discontinued. Pt have occasional irregular contractions on arrival. No cervical change.
--- NOTE | 2019-11-05 18:33 | PM.OBTRLD ---
OB - Triage/Final Diagnosis Evaluation Vital signs: Vital Signs - 24 hr 11/05/19 00:37 Pulse Rate 106 H Blood Pressure 125/68 Final Diagnosis (1) False labor: Code(s): O47.9 - False labor, unspecified Status: Acute
== END 2019-11-05 02:24 | disposition home or self-care (01) ==
PROVIDERS: Admitting Provider Obstetrics & Gynecology; Visit Provider Obstetrics & Gynecology
DX: O47.9 False labor, unspecified (principal); Z3A.00 Weeks of gestation of pregnancy not specified
CPT/HCPCS: G0378; G0379

== ENCOUNTER 2019-11-08 15:42 | Outpatient (CLI) | payer OTHER, SELFPAY ==
--- NOTE | ~2019-11-08 | US_ITS ---
EXAMINATION: US OB follow up DATE: 11/08/2019 17:17 INDICATION: Estimated weight. Third trimester. TECHNIQUE: Real-time ultrasound of the pelvis was performed. COMPARISON: Ultrasound 10/01/2019, 04/15/2019 FINDINGS: There is a single living fetus in vertex presentation. The placenta is anterior. There is a 2.7 cm h ypoechoic mass in the placenta, likely thrombus or a venous garrison. heart rate is 147 beats per m inute (bpm). The amniotic fluid index is 16.6 cm, which is normal. The following biometric data were obtained: Biparietal diameter (BPD): 9.4 cm; head circumference (HC): 34.2 cm; abdominal circumference (AC): 34 .1 cm; femur length (FL): 7.3 cm. These measurements are concordant. Estimated weight is 3363 g +/- 505 g, which correlates with 63rd percentile when 11/22/19 is use d as estimated date of delivery. As single measurements, these parameters are each equal to the following estimated gestational ages: BPD: 38 weeks 2 days. HC: 39 weeks 3 days. AC: 38 weeks 0 days. FL: 37 weeks 2 days. estimated gestational age based solely on measurements from this exam is 38 weeks 2 days +/- 2 weeks 5 days. IMPRESSION: 1. Single living fetus in vertex presentation. 2. Estimated weight is 3363 g +/- 505 g, which correlates with 63rd percentile when 11/22/19 is used as estimated date of delivery. This date was set by ultrasound on 04/15/2019. Reviewed, dictated and finalized at location A. IMPRESSION: 1. Single living fetus in vertex presentation. 2. Estimated weight is 3363 g +/- 505 g, which correlates with 63rd perc entile when 11/22/19 is used as estimated date of delivery. This date was set by ultrasound on 04/15/2019.
== END 2019-11-08 16:02 | disposition home or self-care (01) ==
LOC: ANHOBOP 16:00 → ANHLDR 16:01
PROVIDERS: Visit Provider Obstetrics & Gynecology
DX: Z34.83 Encounter for supervision of other normal pregnancy, third trimester (principal)
CPT/HCPCS: 76816; 99199

== ENCOUNTER 2019-11-09 18:47 | Observation (INO) | payer OTHER, SELFPAY ==
[2019-11-09 19:00] VITALS: TEMP 36.7
[2019-11-09 20:20] VITALS: BMI 39.0
--- NOTE | 2019-11-10 12:42 | PM.OBTRLD ---
OB - Triage/Final Diagnosis Visit Information Reason for evaluation: threatened labor Evaluation Vital signs: Vital Signs - 24 hr 11/09/19 19:00 Temperature 36.7 C
== END 2019-11-09 20:25 | disposition home or self-care (01) ==
PROVIDERS: Admitting Provider Obstetrics & Gynecology; Visit Provider Obstetrics & Gynecology
DX: O47.9 False labor, unspecified (principal)
CPT/HCPCS: G0378; G0379

== ENCOUNTER 2019-11-18 02:53 | Observation (INO) | payer OTHER, SELFPAY ==
--- NOTE | 2019-11-18 06:34 | OBADM ---
This patient, Nona Stanley, admitted to the OB room Labor/Delivery/Recovery 101 for observation. Patient/family oriented to hospital policies and general routines including ID bracelet, bed and alarms, visiting hours, pain management, procedures, bathroom and other care routines, personal items, smoking policy, room service/diet, and visiting hours. Patient/Family are encouraged to report perceived risks to care and to ask questions if they do not understand what they are told or what they should do.
--- NOTE | 2019-11-18 13:30 | PM.OBTRLD ---
OB - Triage/Final Diagnosis Final Diagnosis (1) False labor: Code(s): O47.9 - False labor, unspecified Status: Acute
== END 2019-11-18 06:23 | disposition home or self-care (01) ==
PROVIDERS: Admitting Provider Obstetrics & Gynecology; Visit Provider Obstetrics & Gynecology
DX: O47.9 False labor, unspecified (principal); Z3A.00 Weeks of gestation of pregnancy not specified
CPT/HCPCS: G0378; G0379

== ENCOUNTER 2019-11-22 06:07 | Inpatient (IN) | payer OTHER, SELFPAY ==
[2019-11-22] VITALS (108 sets, daily range): BP systolic 91–135; BP diastolic 45–110; PULSE 63–121; TEMP 36.3–36.7; O2SAT 100; BMI 35.4
[2019-11-22 06:47] LABS: Basophils Percent Auto 0.2 % (0.2-1.2); Eosinophils Absolute Auto 0.1 K/mm3 (0-0.3); Eosinophils Percent Auto 0.5 % (0-4.4); Hematocrit 28.5 % (37.0-47.0); Hemoglobin 9.4 g/dL (12.0-15.0); Immature Granulocyte Absolute 0.04 K/mm3 (0.00-0.031); Immature Granulocyte Percent A 0.4 % (0-0.5); Lymphocytes Absolute Auto 1.76 K/mm3 (0.9-3.2); Lymphocytes Percent Auto 18.1 % (18.3-44.2); Mean Corpuscular Hemoglobin 28.9 pg (26-34); Mean Corpuscular Volume 87.7 fl (80-100); Mean Platelet Volume 12.8 fl (7.4-10.4); Monocytes Absolute Auto 0.6 K/mm3 (0.1-0.6); Monocytes Percent Auto 6.5 % (2.6-8.5); Neutrophils Absolute Auto 7.2 K/mm3 (1.3-6.7); Neutrophils Percent Auto 74.3 % (45.5-73.1); Platelet Count Result 122 k/mm3 (150-375); Red Blood Count 3.25 M/mm3 (4.2-5.4); Red Cell Distribution Width 13.4 % (11.5-14.5); White Blood Count 9.7 K/mm3 (4.5-10.0)
[2019-11-22] MEDS: LACTATED RINGERS 1,000 ML 125 ML IV CONT ×2 (06:56→20:03)
[2019-11-22] MEDS: OXYTOCIN 30 UNITS/NS 500 ML 30 UNITS/500 ML BAG IV CONT (06:57)
--- NOTE | 2019-11-22 07:32 | LDADM ---
This patient, Nona Stanley, was admitted to Labor/Delivery/Recovery 107 on 11/22/19 at 06:07. Plans for labor, pain management and were discussed with patient. Patient/family oriented to hospital policies and general routines including ID bracelet, bed and alarms, visiting hours, pain management, procedures, bathroom and other care routines, personal items, smoking policy, room service/diet and guest tray routines, security routines, and visiting hours. Patient/Family are encouraged to report perceived risks to care and to ask questions if they do not understand what they are told or what they should do. See OBIX for further documentation.
[2019-11-22 11:44] LABS: Rapid Plasma Reagin Non-Reactive (NonReactive)
--- NOTE | 2019-11-22 18:31 | PM.IMHP ---
H&P: HPI History of Present Illness Date/Time: 11/22/19 06:31 Chief complaint: IOL Narrative: Nona Stanley is a 19 year old female , presents for IOL at 39w4d gestation. Hx of MTHFR, miscarriage, (threatend premature labor), depressive disorder, PCOS and obesity.Denies contractions rupture membranes or vaginal bleeding here for oxytocin induction of labor she understands her condition procedure and risks involved she understands maternal or indications for delivery including risk of bleeding infection injury to bladder bowel baby pelvic vessels DVT pneumonia wound infection UTI risk of anesthesia and she agrees to proceed Review of Systems Review of Systems: All systems reviewed & are unremarkable except as noted in HPI and below Constitutional: Constitutional: Reports no additional constitutional complaints Eyes: Eyes: Reports no additional eye complaints ENT: Reports system reviewed and no additional complaints, except as documented Cardiovascular: Cardiovascular: Reports no additional cardiovascular complaints Respiratory: Respiratory: Reports no additional respiratory complaints Gastrointestinal: Gastrointestinal: Reports no additional gastrointestinal complaints Genitourinary: Genitourinary: Reports no additional female genitourinary complaints Musculoskeletal: Musculoskeletal: Reports no additional musculoskeletal complaints Integumentary/Breasts: Skin/Breast: Reports system reviewed and no additional complaints, except as docu Neurologic: Reports system reviewed and no additional complaints, except as documented Psychiatric: Psychiatric: Reports no additional psychiatric complaints Endocrine: Endocrine: Reports no additional endocrine complaints Hematologic/Lymphatic: Hematologic/Lymphatic: Reports no additional hematologic/lymphatic complaints Allergic/Immunologic: Allergic/Immunologic: Reports no additional allergic/immunologic complaints PMFSH Past Medical History Medical History (Updated 11/22/19 @ 18:52 by Todd Woodson MD) Abdominal trauma BV (bacterial vaginosis) Depressive disorder Heterozygous MTHFR mutation [id number] History of miscarriage 02-12-2018, 5 wks 1. Maternal varicella, non-immune MRSA (methicillin resistant Staphylococcus aureus) Nephrolithiasis Patient denies significant medical history PCOS (polycystic ovarian syndrome) UTI (urinary tract infection) Vaginal delivery 12-21-2015, 40 wks 1. M, 7lbs 7oz, Vaginal Surgical History Surgical History Hx of appendectomy Hx of tonsillectomy Family History Family History (Updated 11/22/19 @ 18:45 by Todd Woodson MD) Mother Heart disease Hypertension Diabetes mellitus Father Diabetes mellitus Heart disease Hypertension Other No pertinent family history Social History Social History (Updated 11/22/19 @ 18:49 by Todd Woodson MD) Years smoked: 2 Smoking status: Former smoker Tobacco type: cigarettes Second hand tobacco smoke exposure: Yes Alcohol intake: never Substance use: never Substance use type: does not use Living arrangements: with friend(s) Occupation/Education: occupation Additional occupation/education comments: [employer]; 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
--- NOTE | 2019-11-22 18:52 | WPDHPUPDATE1 ---
History and Physical Update Update Date/Time: 11/22/19 18:52 History and Physical has been reviewed, including an updated exam of the patient. There are NO changes in the patient's condition. Risks, benefits, and alternatives have been discussed and questions answered. Patient agrees to proceed with procedure.
--- NOTE | 2019-11-22 18:53 | WPDOBADMIT ---
Obstetrics - Admit Note Admission Note: record reviewed. No pertinent additions to the history and/or any subsequent changes in the physical findings that are not consistent with the expected course of the were found. Additions to the history and/or subsequent changes in the physical findings follow. None. 19yo F, , presents for IOL at 39w4d gestation. Hx of MTHFR, miscarriage, (threatend premature labor), depressive disorder, PCOS and obesity.
--- NOTE | 2019-11-22 18:55 | PM.OBPNLAB ---
Pain Control Date/time seen: 11/22/19 18:15 Pain control: tolerating well Comments: 19yo F, , presents for iol at 39w4d gestation. Hx of MTHFR, miscarriage, (threatend premature labor), depressive disorder, PCOS and obesity. Pelvic Exam Dilation (cm): 5 Effacement (%): 75 station: -2 Amniotic membrane status: Bulging Comments: amniotomy performed without difficulty clear fluid intrauterine pressure catheter placed without difficulty scalp electrode placed but was unable to be picked up by monitor therefore external monitor being utilized patient on 16 milliunits of Pitocin backed down to 8 milliunits after rupture membranes Contractions Monitor mode: External Contraction frequency: 5 Contraction duration: 45 Contraction pattern: Regular Contraction phase: Resting Contraction intensity: Mild Status status: Category l Assessment and Plan Pitocin rate (mU/min): 16 Assessment: induction ongoing Plan: continuous present management Comments: desires epidural anesthesia continue to monitor and observe for in active phase still anticipate vaginal delivery
[2019-11-22] MEDS: ONDANSETRON INJ 4 MG/2 ML VIAL IV PUSH (22:23)
--- NOTE | 2019-11-22 22:33 | PM.OBPNLAB ---
Pain Control Date/time seen: 11/22/19 20:53 Pelvic Exam Dilation (cm): 5 Effacement (%): 75 station: -2 Amniotic membrane status: Ruptured Contractions Monitor mode: Internal Contraction frequency: 5 Contraction pattern: Regular Contraction phase: Resting Contraction intensity: Moderate Status status: Category l Assessment and Plan Pitocin rate (mU/min): 16 Assessment: active labor and other (protracted active phase) Plan: continuous present management
--- NOTE | 2019-11-22 22:55 | PM.OBPNLAB ---
Pain Control Date/time seen: 11/22/19 22:35 Pain control: tolerating well and epidural Pelvic Exam Dilation (cm): 8 Effacement (%): 90 station: -2 Amniotic membrane status: Ruptured Contractions Monitor mode: Internal Contraction frequency: 3 Contraction pattern: Regular Contraction phase: Resting Contraction intensity: Strong/Firm Status status: Category l Assessment and Plan Pitocin rate (mU/min): 22 Assessment: active labor Plan: continuous present management
--- NOTE | 2019-11-22 23:49 | P.PCNOB_ITS ---
OB - Delivery Note Procedure Delivery date: 11/22/19 Procedure: Normal spontaneous vertex vaginal delivery of a viable female over an intact perineum normal spontaneous delivery of placenta Induction method: per pitocin protocol Delivery augmentation: pitocin Delivery monitor: internal FHT and internal uterine Route of delivery: Episiotomy description: None Laceration description: None Specimen: Yes ( placenta) Estimated blood loss (mL): 125 Anesthesia type: Epidural Disposition: floor Complications: none Narrative: normal spontaneous vertex vaginal delivery a viable female over an intact perineum normal delivery of anterior shoulder rest the infant delivered and placed on the maternal abdomen cord clamped and cut normal spo ntaneous respiration rate of baby scores 8 and 9 at 1 and 5 minutes to the nursery in stable condition placenta delivered intact 3 vessel cord spontaneously uterus contracted well with Pitocin given intravenously no cuts tears or lacerations Mom Baby in room 107 stable condition She will be breast feeding [employer] [place] Baby Date of : 11/22/19 Time of : 23:41 Weeks of gestation at delivery: 40 gender: Female Weight (pounds): 8 Weight (ounces): 2 presentation: vertex position: Left Occiput Anterior Placenta delivery description: Spontaneous and Normal Configuration cord vessel description: 3 Vessels score one minute: 8 score five minutes: 9
--- NOTE | 2019-11-22 23:56 | PM.OBDSVD ---
DS: Admitting Diagnosis Admitting Diagnosis Admitting Diagnosis: IOL term heterozygous MTHFR depressive disorder history of miscarriage maternal varicella nonimmune DS: Discharge Diagnosis Discharge Diagnosis (1) Elective induction of labor planned: Status: Acute (2) Term : Code(s): Z34.90 - Encounter for supervision of normal , unspecified, unspecified trimester Status: Acute (3) Maternal varicella, non-immune: Code(s): O09.899 - Supervision of other high risk pregnancies, unspecified trimester; Z28.3 - Underimmunization status Status: Acute (4) History of miscarriage: Code(s): Z87.59 - Personal history of other complications of , childbirth and the puerperium Status: Acute (5) Heterozygous MTHFR mutation C677T: Code(s): E72.12 - Methylenetetrahydrofolate reductase deficiency Status: Acute (6) Depressive disorder: Code(s): F32.9 - Major depressive disorder, single episode, unspecified Status: Acute (7) Term delivered: Code(s): O80 - Encounter for full-term uncomplicated delivery Status: Acute OB - DS: Summary Hospital Course Time spent discussing smoking cessation with patient: 3 to 10 minutes OB Procedures : Ultrasound OB Procedures Intrapartum: Spontaneous Vag Delivery OB Procedures: : None Peripartum Data Infant Delivery Method: Natural Vaginal Laceration description: None Episiotomy description: None complications: none [place] 1: Gender: Female Disposition of : home Status at Discharge Functional status at discharge: independent ambulation Overall status at discharge: patient is back to baseline Time Spent with Patient Time attestation: Total time spent providing and/or coordinating discharge services: Time spent: Less than 30 minutes Exam Const: General: comfortable, no acute distress, alert and awake Orientation/consciousness: patient oriented x3 Limitations: no limitations Chest: Breast/axilla inspection: normal inspection of the breasts Resp: Effort & Inspection: normal respiratory effort Cardio: Rate: regular rate GI: GI Palp: Yes Soft to palpation : General: Yes bladder normal to inspection Psych: Appearance: grossly normal Affect: normal affect Attitude: cooperative Thought content: Yes Normal thought content present Judgement: Good judgement present (Psych) DS: Data Data Completed and Pending Labs on day of discharge: Labs from last 24 hours 11/22/19 11/22/19 11/22/19 06:40 06:40 06:40 WBC 9.7 RBC 3.25 L Hgb 9.4 L Hct 28.5 L MCV 87.7 MCH 28.9 MCHC 33.0 RDW 13.4 Plt Count 122 L MPV 12.8 H Immature Gran % (Auto) 0.4 Neut % (Auto) 74.3 H Lymph % (Auto) 18.1 L [place] % (Auto) 6.5 Eos % (Auto) 0.5 Baso % (Auto) 0.2 Lymph # (Auto) 1.76 [place] # (Auto) 0.6 Eos # (Auto) 0.1 Baso # (Auto) 0.0 Abs Immat Gran (auto) 0.04 H Absolute Neuts (auto) 7.2 H Absolute Nucleated RBC 0.0 Nucleated RBC % 0.0 RPR Non-reactive Blood Type A Positive Antibody Screen Negative Discharge Plan Discharge Attending physician on discharge: Todd Woodson Discharging Clinician: Todd Woodson Anticipated Discharge Date/Time: 11/25/19 23:59 Patient Disposition: Home, Self-Care Activity: may shower and unlimited Diet: as tolerated and regular Wound Care Instructions: follow printed instructions Discharge Instructions: Education: Mom and Baby Guide Given to: Mother Follow-Up: Call your delivering provider's office for an appointment to be seen in: Call for appointment Mom and baby should come to the [facility] for the follow-up appointment. Appointment Date/Time: Tuesday, November 26, 2019 at 11:30 am What to expect at your follow-up visit: Blood Pressure Check Physical
[2019-11-23] VITALS (13 sets, daily range): BP systolic 95–135; BP diastolic 43–93; PULSE 60–107; RESP 16; TEMP 36.4–37.1; O2SAT 98–100
[2019-11-23] MEDS: OXYTOCIN 30 UNITS/NS 500 ML 30 UNITS/500 ML BAG 125 UNITS IV CONT (00:06)
--- NOTE | 2019-11-23 02:04 | PC.NURSE ---
This patient, Nona Stanley, was received from Labor and Delivery on 11/23/19 at 0200. Personal belongings list checked and signed. Patient/family oriented to unit policies and routines
[2019-11-23] MEDS: IBUPROFEN 600 MG TABLET PO ×4 (02:12→23:35)
--- NOTE | 2019-11-23 07:30 | PC.NURSE ---
PT introductions made and plan of care discussed per post , pain management, breast/bottle feeding, daily care activities. PT verbalized understanding of such care.
[2019-11-23] MEDS: POLYSACCHARIDE IRON COMPLEX 150 MG CAPSULE PO ×2 (08:32→16:59)
[2019-11-23] MEDS: DOCUSATE SODIUM 100 MG CAPSULE PO ×2 (08:32→16:55)
[2019-11-23] MEDS: LANOLIN (LANSINOH) 7.5 GM CREAM 1 APPLIC TOPICAL (08:34)
[2019-11-23] MEDS: ACETAMINOPHEN 325 MG TABLET 650 MG PO (16:59)
[2019-11-24 04:21] LABS: Hemoglobin 8.1 g/dL (12.0-15.0)
[2019-11-24] MEDS: IBUPROFEN 600 MG TABLET PO (05:30)
[2019-11-24] MEDS: DOCUSATE SODIUM 100 MG CAPSULE PO (07:56)
[2019-11-24] MEDS: POLYSACCHARIDE IRON COMPLEX 150 MG CAPSULE PO (07:56)
[2019-11-24] MEDS: ACETAMINOPHEN 325 MG TABLET 650 MG PO (07:56)
[2019-11-24] MEDS: MULTIVIT/MIN/PREN/FOL AC/IRON TABLET 1 TAB PO (07:57)
[2019-11-24 08:00] VITALS: PULSE 60; RESP 16; O2SAT 99
--- NOTE | 2019-11-24 10:10 | PC.NURSE ---
Patient viewed the discharge video Mother & Baby Care, The First Two Weeks . Patient was given the opportunity and encouraged to ask questions. Patient verbalized understanding of information shared and has been given the mother/baby guide for home reference.
[2019-11-25 11:37] VITALS: BP 108/63; PULSE 73; RESP 18; TEMP 36.7
== END 2019-11-24 10:53 | disposition home or self-care (01) | DRG 560 ==
LOC: ANHLDR 11-23 00:01 → ANHOB2 11-23 02:00
PROVIDERS: Admitting Provider Obstetrics & Gynecology; Visit Provider Obstetrics & Gynecology
DX: O99.284 Endocrine, nutritional and metabolic diseases complicating childbirth (principal); Z37.0 Single live birth; Z3A.39 39 weeks gestation of pregnancy; E72.12 Methylenetetrahydrofolate reductase deficiency; O99.214 Obesity complicating childbirth; E66.9 Obesity, unspecified; O99.344 Other mental disorders complicating childbirth; F32.9 Major depressive disorder, single episode, unspecified; O99.02 Anemia complicating childbirth; D64.9 Anemia, unspecified
CPT/HCPCS: 36415; 85014; 85018; 85025; 86592; 86850; 86900; 86901; 88307; A9270; J2405; J2590; J2795; J7120

== ENCOUNTER 2020-02-20 09:47 | Outpatient (CLI) | payer OTHER, SELFPAY ==
--- NOTE | ~2020-02-20 | US_ITS ---
EXAMINATION: US OB <=14 wk fetus w TV DATE: 02/20/2020 10:54 INDICATION: Uncertain gestational dates TECHNIQUE: Real-time transabdominal and transvaginal obstetric ultrasound. FINDINGS: Automated exposure control and iterative reconstruction technique were employed. The uterus measures 6.7 x 5.4 x 6.8 cm. No pole identified. There is a small gestational sac wi th a yolk sac. Gestational sac measurements correspond to a 5 week 3 day gestation. The ovaries are n ormal. No significant ovarian or adnexal mass. No free fluid in the pelvis. IMPRESSION: 1. Intrauterine gestational sac corresponding to 5 week 3 day gestation (AUDREY 10/19/2020). No arnold e visualized. Recommend follow-up ultrasound as clinically warranted. Reviewed, dictated and finalized at location A. TIME FLEXIBLE CLERK IMPRESSION: 1. Intrauterine gestational sac corresponding to 5 week 3 day gestation (AUDREY ). No pole visualized. Recommend follow-up ultrasound as clinicall y warranted.
== END 2020-02-20 09:48 | disposition home or self-care (01) ==
PROVIDERS: Visit Provider Obstetrics & Gynecology
DX: Z36.87 Encounter for antenatal screening for uncertain dates (principal); Z3A.01 Less than 8 weeks gestation of pregnancy
CPT/HCPCS: 76801; 76817

== ENCOUNTER 2020-04-19 15:15 | Outpatient (CLI) | payer OTHER, SELFPAY ==
--- NOTE | ~2020-04-19 | US_ITS ---
US OB <= 14 weeks fetus DATE: 04/19/2020 15:47 INDICATION: Check viability TECHNIQUE: Real-time imaging and Doppler analysis COMPARISON: 02/20/2020 obstetrical ultrasound FINDINGS: The uterus measures approximately 11.6 cm height, 8.9 cm anteroposterior 9.6 cm transverse dimension. A normally shaped intrauterine gestational sac is identified. Anterior placenta. Subjectiv jennifer normal amount of amniotic fluid. A single fetus is identified, in variable position during the ex amination. heart motion is detected, with heart rate of 134 bpm. A 1.3 x 1.2 x 1.7 cm hypoechoic area is noted near the base of the placenta. This might be a venous l sangeeta or small retroplacental hemorrhage. Continued sonographic follow-up is recommended. Biparietal diameter 2.65 cm; 14 weeks 5 days Head circumference 10.16 cm; 14 weeks 5 days Abdominal circumference 8.44 cm; 14 weeks 5 days Femur length 1.33 cm; 13 weeks 6 days Composite age by Hadlock formula is 14 weeks 4 days +/- 1 week; AUDREY 10/14/2020, compared to 10/19/2020 by LMP Estimated weight is 96.4 +/- 14.5 g Estimated weight-GP: 71.4% Head circumference/abdominal circumference 1.20, within normal range of 1.07-1.37. IMPRESSION: Small hypoechoic area at the posterior aspect of the placenta; differential diagnosis inc ludes venous garrison or small retroplacental hematoma. Short-term obstetrical ultrasound follow-up is re commended Estimated gestational age is 14 weeks 4 days +/- 1 week; AUDREY: 10/14/2020 Reviewed, dictated and finalized at Location A. Reviewed, dictated and finalized at location A. SAW OPERATOR IMPRESSION: Small hypoechoic area at the posterior aspect of the placenta; diff erential diagnosis includes venous garrison or small retroplacental hematoma. Short -term obstetrical ultrasound follow-up is recommended Estimated gestational age is 14 weeks 4 days +/- 1 week; AUDREY: 10/14/2020
== END 2020-04-19 15:16 | disposition home or self-care (01) ==
PROVIDERS: PCP Obstetrics & Gynecology; Visit Provider Obstetrics & Gynecology
DX: O36.80X0 Pregnancy with inconclusive fetal viability, not applicable or unspecified (principal); Z3A.14 14 weeks gestation of pregnancy
CPT/HCPCS: 76801

== ENCOUNTER 2020-05-16 12:41 | Outpatient (CLI) | payer OTHER, SELFPAY ==
--- NOTE | ~2020-05-16 | US_ITS ---
EXAMINATION: US OB follow up DATE: 05/16/2020 13:13 INDICATION: Abnormal placenta during second trimester . TECHNIQUE: Real-time ultrasound of the pelvis was performed. The interpreting radiologist was not pre sent for the study. COMPARISON: 04/19/2020 FINDINGS: There is a single living fetus in vertex presentation. The placenta is anterior. There are couple hy poechoic regions at the periphery of the placenta the larger and more central measuring 4.6 x 4.5 x 2 .4 cm in maximal diameter and the smaller along the inferior margin measuring 2.1 x 1.3 x 0.8 cm. Fet al heart rate is 145 beats per minute (bpm). The amniotic fluid volume is subjectively normal. The following biometric data were obtained: BPD: 4.2 cm -> 18 weeks 5 days Head circumference: 16.4 cm -> 19 weeks 1 days Abdominal circumference: 12.6 cm -> 18 weeks 2 days Femur length: 2.8 cm -> 18 weeks 3 days Head circumference to abdominal circumference ratio: 1.30 (normal range 1.09-1.26). Femur length to h ead circumference ratio is within normal limits. Estimated weight: 239 g (+/-) 36 g. or 8 oz. (+/-) 1 oz. IMPRESSION: 1. Single living fetus in vertex presentation with heart rate of 145 bpm. 2. Increase in size of a now 4.6 similar hypoechoic region at the periphery of the placenta and devel opment of a new smaller 2.1 cm region along the inferior margin of placenta which could represent enl arging subcoracoid hematomas with differential including venous lakes. 3. Estimated weight is 37th percentile by Hadlock criteria when 10/13/2020 is used as the estima jessee date of delivery (AUDREY). Please correlate with clinical information or earlier ultrasounds for mos t accurate AUDREY. 4. Head circumference to abdominal circumference ratio of 1.30 which is greater than 2 standard devia tions above the mean. Reviewed, dictated and finalized at location A. IMPRESSION: 1. Single living fetus in vertex presentation with heart rate of 145 bpm. 2. Increase in size of a now 4.6 similar hypoechoic region at the periphery of the placenta and development of a new smaller 2.1 cm region along the inferior margin of placenta which could represent enlarging subcoracoid hematomas with d ifferential including venous lakes. 3. Estimated weight is 37th percentile by Hadlock criteria when 10/13/2020 is used as the estimated date of delivery (AUDREY). Please correlate with clinica l information or earlier ultrasounds for most accurate AUDREY. 4. Head circumference to abdominal circumference ratio of 1.30 which is greater than 2 standard deviations above the mean.
== END 2020-05-16 12:42 | disposition home or self-care (01) ==
PROVIDERS: Visit Provider Obstetrics & Gynecology
DX: O43.892 Other placental disorders, second trimester (principal); Z3A.18 18 weeks gestation of pregnancy
CPT/HCPCS: 76816

== ENCOUNTER 2020-08-30 14:09 | Observation (INO) | payer OTHER, SELFPAY ==
[2020-08-30 14:45] VITALS: BMI 36.6
[2020-08-30 14:46] VITALS: BP 106/61; PULSE 99
[2020-08-30 15:01] VITALS: BP 117/55; PULSE 95
[2020-08-30 15:16] VITALS: BP 112/63; PULSE 85
[2020-08-30 15:31] VITALS: BP 113/66; PULSE 95
--- NOTE | 2020-09-12 11:14 | PM.OBTRLD ---
OB - Triage/Final Diagnosis Visit Information Comments/Additional reasons for admission: I have assessed the risk for this patient, Nona Stanley, and determined that she would benefit from observation care. Final Diagnosis (1) Polyhydramnios affecting : Code(s): O40.9XX0 - Polyhydramnios, unspecified trimester, not applicable or unspecified Status: Acute
== END 2020-08-30 15:58 | disposition home or self-care (01) ==
PROVIDERS: Admitting Provider Obstetrics & Gynecology; Visit Provider Obstetrics & Gynecology
DX: O40.3XX0 Polyhydramnios, third trimester, not applicable or unspecified (principal); Z3A.33 33 weeks gestation of pregnancy
CPT/HCPCS: G0378; G0379

== ENCOUNTER 2021-01-11 18:42 | Emergency (ER) | payer OTHER, SELFPAY ==
[2021-01-11 18:49] VITALS: BP 118/74; PULSE 128; RESP 16; TEMP 36.6; O2SAT 100
--- NOTE | 2021-01-11 19:30 | ED.NAVMDI ---
HPI - Nausea/Vomiting/Diarrhea General Chief complaint: Nausea/Vomiting/Diarrhea Stated complaint: DIARRHEA Time Seen by Provider: 01/11/21 19:29 Source: patient Mode of arrival: ambulatory Limitations: no limitations History of Present Illness HPI Narrative: Patient is a 20-year-old female complaining of diarrhea, loose, watery nonbloody and nausea that started yesterday. Patient states that she has been having continuous diarrhea since yesterday. Patient denies any abdominal pain, vomiting, fever or chills. Patient denies any recent use of antibiotics. Patient denies any recent hospitalization. Related Data Home Medications Medication Instructions Recorded Confirmed PNV cmb#95-ferrous fumarate-FA 1 tablet PO DAILY 04/10/19 11/18/19 [] Allergies Allergy/AdvReac Type Severity Reaction Status Date / Time No Known Allergies Allergy Verified 01/11/21 19:39 Review of Systems Review of Systems: All systems reviewed & are unremarkable except as noted in HPI and below Constitutional: Constitutional: Denies body ache(s), Denies chills, Denies excessive sweating, Denies fatigue, Denies fever(s), Denies headache(s), Denies lethargy, Denies malaise, Denies weakness and Denies weight loss Eyes: Eyes: Denies blurry vision, Denies change in vision and Denies loss of vision ENT: Denies dizziness, Denies ear discharge, Denies headache(s), Denies lip swelling, Denies epistaxis, Denies nasal congestion, Denies neck pain, Denies throat swelling and Denies tongue swelling Cardiovascular: Cardiovascular: Denies chest pain, Denies chest pain at rest, Denies chest pain with activity, Denies diaphoresis, Denies rapid heart rate, Denies edema, Denies irregular heart rhythm, Denies lightheadedness, Denies palpitations, Denies dyspnea and Denies dyspnea on exertion Respiratory: Respiratory: Denies chest congestion, Denies cough, Denies hemoptysis, Denies dyspnea and Denies dyspnea on exertion Gastrointestinal: Gastrointestinal: Denies abdominal pain, Denies melena, Denies hematochezia, Denies nausea, Denies vomiting and Denies hematemesis Musculoskeletal: Musculoskeletal: Denies abnormal gait, Denies deformity, Denies joint swelling, Denies limited range of motion, Denies neck pain and Denies numbness Neurologic: Denies Abnormal speech present, Denies abnormal gait, Denies confusion, Denies dizziness, Denies headache(s), Denies focal weakness, Denies loss of vision, Denies numbness, Denies Other visual disturbances, Denies Sensory deficit (Neuro) and Denies weakness Psychiatric: Psychiatric: Denies confusion, Denies depression, Denies auditory hallucinations, Denies homicidal ideation and Denies suicidal ideation Endocrine: Endocrine: Denies cold intolerance, Denies excessive sweating, Denies fatigue, Denies heat intolerance and Denies palpitations Hematologic/Lymphatic: Hematologic/Lymphatic: Denies easy bleeding and Denies easy bruising Allergic/Immunologic: Allergic/Immunologic: Denies lip swelling, Denies throat swelling and Denies tongue swelling PMFSH Past Medical History Medical History Abdominal trauma BV (bacterial vaginosis) Depressive disorder Heterozygous MTHFR mutation C677T History of miscarriage 02-12-2018, 5 wks 1. Maternal varicella, non-immune MRSA (methicillin resistant Staphylococcus aureus) Nephrolithiasis Patient denies significant medical history PCOS (polycystic ovarian syndrome) Polyhydramnios affecting UTI (urinary tract infection) Vaginal delivery 12-21-2015, 40 wks 1. M, 7lbs 7oz, Vaginal Surgical History Surgical History Hx of appendectomy Hx of tonsillectomy Family History Family History Mother Heart disease Hypertension Diabetes mellitus Father Diabetes mellitus Heart disease Hypertension Other No pe
[2021-01-11] MEDS: SODIUM CHLORIDE 0.9% IV 1,000 ML 999 ML IV CONT (20:20)
[2021-01-11 20:49] LABS: Alanine Aminotransferase 36 U/L (4-35); Albumin Level 4.2 g/dL (3.5-5.1); Alkaline Phosphatase 68 U/L (38-126); Anion Gap 12 mmol/L (8-16); Aspartate Amino Transferase 24 U/L (14-36); Blood Urea Nitrogen 13 mg/dL (7-17); Calcium 9.1 mg/dL (8.4-10.2); Carbon Dioxide 17 mmol/L (22-30); Chloride 107 mmol/L (98-107); Estimated CRCL calculation 134 ml/min; Estimated Glomerular Filt Rate > 60; Glucose 83 mg/dL (65-110); Lipase 59 U/L (23-300); Potassium 3.9 mmol/L (3.4-5.0); Sodium 136 mmol/L (137-145)
[2021-01-11 20:56] VITALS: BP 123/95; PULSE 109; RESP 18; O2SAT 100
[2021-01-11 21:05] LABS: Basophils Percent Auto 0.2 % (0.2-1.2); Eosinophils Absolute Auto 0.1 K/mm3 (0-0.3); Eosinophils Percent Auto 0.9 % (0-4.4); Hematocrit 43.4 % (37.0-47.0); Hemoglobin 13.7 g/dL (12.0-15.0); Immature Granulocyte Absolute 0.04 K/mm3 (0.00-0.031); Immature Granulocyte Percent A 0.4 % (0-0.5); Immature Platelet Fraction Pct 6.6 % (0.9-11.2); Lymphocytes Absolute Auto 1.12 K/mm3 (0.9-3.2); Lymphocytes Percent Auto 12.4 % (18.3-44.2); Mean Corpuscular HGB Conc 31.6 g/dl (32-36); Mean Corpuscular Hemoglobin 29.1 pg (26-34); Mean Corpuscular Volume 92.1 fl (80-100); Mean Platelet Volume 11.5 fl (7.4-10.4); Monocytes Absolute Auto 0.6 K/mm3 (0.1-0.6); Neutrophils Absolute Auto 7.2 K/mm3 (1.3-6.7); Neutrophils Percent Auto 79.1 % (45.5-73.1); Platelet Count Result 130 k/mm3 (150-375); Red Blood Count 4.71 M/mm3 (4.2-5.4); Red Cell Distribution Width 14.2 % (11.5-14.5)
[2021-01-11] MEDS: LOPERAMIDE HCL 2 MG CAPSULE 4 MG PO (21:35)
[2021-01-11] MEDS: PROMETHAZINE HCL 25 MG/ML AMPUL 12.5 MG IV PUSH (21:36)
[2021-01-11 21:55] VITALS: BP 139/78; PULSE 100; RESP 18; O2SAT 99
== END 2021-01-11 21:57 | disposition home or self-care (01) ==
PROVIDERS: Emergency Provider Emergency Medicine
DX: K52.9 Noninfective gastroenteritis and colitis, unspecified (principal); E28.2 Polycystic ovarian syndrome; Z86.14 Personal history of Methicillin resistant Staphylococcus aureus infection; Z87.442 Personal history of urinary calculi; Z87.440 Personal history of urinary (tract) infections; Z87.891 Personal history of nicotine dependence
CPT/HCPCS: 36415; 80053; 83690; 85025; 85055; 96361; 96374; 99284; A9270; J2550; J7030

== ENCOUNTER 2021-02-23 12:26 | Emergency (ER) | payer OTHER, SELFPAY ==
[2021-02-23 12:33] VITALS: BP 128/67; PULSE 117; RESP 16; TEMP 37.4; O2SAT 99
--- NOTE | 2021-02-23 12:48 | ED.URI ---
HPI - URI/Sore Throat General Chief Complaint: Upper Respiratory Infection Stated Complaint: Sore Throat Time Seen by Provider: 02/23/21 12:49 Source: patient and RN notes reviewed Mode of arrival: ambulatory Limitations: no limitations History of Present Illness HPI Narrative: 20-year-old female presents to the [facility] with sore throat, ear pressure, sinus congestion since yesterday. Denies fevers, chest pain, abdominal pain, nausea vomiting or diarrhea. Denies any significant medical or surgical history. Patient denies being Covid vaccinated. States that she did receive her flu vaccine this year Related Data Home Medications Medication Instructions Recorded Confirmed PNV cmb#95-ferrous fumarate-FA 1 tablet PO DAILY 04/10/19 02/23/21 [] Allergies Allergy/AdvReac Type Severity Reaction Status Date / Time No Known Allergies Allergy Verified 01/11/21 19:39 Review of Systems Review of Systems: All systems reviewed & are unremarkable except as noted in HPI and below Constitutional: Constitutional: Reports as per HPI and Reports chills Eyes: Eyes: Reports no additional eye complaints ENT: Reports as per HPI, Reports nasal congestion and Reports sore throat Cardiovascular: Cardiovascular: Reports no additional cardiovascular complaints and Denies chest pain Respiratory: Respiratory: Reports as per HPI, Reports chest congestion, Denies cough, Denies dyspnea and Denies wheezing Gastrointestinal: Gastrointestinal: Reports no additional gastrointestinal complaints, Denies abdominal pain, Denies nausea and Denies vomiting Musculoskeletal: Musculoskeletal: Reports no additional musculoskeletal complaints Integumentary/Breasts: Skin/Breast: Reports system reviewed and no additional complaints, except as docu Neurologic: Reports system reviewed and no additional complaints, except as documented Psychiatric: Psychiatric: Reports no additional psychiatric complaints Allergic/Immunologic: Allergic/Immunologic: Reports no additional allergic/immunologic complaints [facility] Past Medical History Medical History Abdominal trauma BV (bacterial vaginosis) Depressive disorder Heterozygous MTHFR mutation C677T History of miscarriage 02-12-2018, 5 wks 1. Maternal varicella, non-immune MRSA (methicillin resistant Staphylococcus aureus) Nephrolithiasis Patient denies significant medical history PCOS (polycystic ovarian syndrome) Polyhydramnios affecting UTI (urinary tract infection) Vaginal delivery 12-21-2015, 40 wks 1. 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 There is no relevant family history pertinent to the patient complaint. Exam Const: General: healthy appearing, no acute distress and alert Nutritional Appearance: well nourished Orientation/consciousness: patient oriented x3 Limitations: no limitations HENMT: Head: normal to
== END 2021-02-23 13:40 | disposition home or self-care (01) ==
PROVIDERS: Emergency Provider Nurse Practitioner
DX: B34.9 Viral infection, unspecified (principal); J32.9 Chronic sinusitis, unspecified; Z20.822 Contact with and (suspected) exposure to COVID-19; Z87.891 Personal history of nicotine dependence
CPT/HCPCS: 87081; 87880; 99213; G0463

== ENCOUNTER 2022-03-28 16:53 | Emergency (ER) | payer OTHER, SELFPAY ==
[2022-03-28 17:06] VITALS: BP 141/82; PULSE 118; RESP 18; TEMP 36.4; O2SAT 99
[2022-03-28] MEDS: LACTATED RINGERS 1,000 ML 999 ML IV CONT (19:27)
[2022-03-28 19:54] LABS: Strep Group A RT-PCR DETECTED (Negative)
--- NOTE | 2022-03-28 20:02 | ED.GENADULT ---
HPI - General Adult General Chief complaint: Unspecified Stated complaint: something in throat Time Seen by Provider: 03/28/22 19:09 History of Present Illness HPI narrative: Patient states that she has been having a sore throat for the past day, also fevers and body aches. Related Data Home Medications Medication Instructions Recorded Confirmed vit no.95-ferrous 1 tablet PO DAILY 04/10/19 02/23/21 fumarate 28 mg-folic acid 800 mcg tablet () Allergies Allergy/AdvReac Type Severity Reaction Status Date / Time No Known Allergies Allergy Verified 01/11/21 19:39 Review of Systems Review of Systems: CONST: fever. HEENT: sore throat C/V: No chest pain RESP: No cough GI: Nausea : No dysuria. M/S: No joint pain. SKIN: No rash. NEURO: [Headache, no focal numbness or weakness] PSYCH: [No depression] [facility] Past Medical History Medical History Abdominal trauma BV (bacterial vaginosis) Depressive disorder Heterozygous MTHFR mutation C677T History of miscarriage 02-12-2018, 5 wks 1. Maternal varicella, non-immune MRSA (methicillin resistant Staphylococcus aureus) Nephrolithiasis Patient denies significant medical history PCOS (polycystic ovarian syndrome) Polyhydramnios affecting UTI (urinary tract infection) Vaginal delivery 12-21-2015, 40 wks 1. 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 EYES: EOMI, conjunctiva normal ENT: Erythematous, swollen bilateral tonsillar exudates; normal ROM of neck LUNGS: Nonlabored breathing. HEART: [Regular rate and rhythm] ABD: [Soft], [nontender to palpation] EXT: Normal range of motion SKIN: [No rashes or lesions.] NEURO: [Alert and oriented x 3. No gross focal sensory or strength deficits.] PSYCH: Normal affect Course Vital Signs Vital signs: Vital Signs Temperature 97.5 F L 03/28/22 17:06 Pulse Rate 118 H 03/28/22 17:06 Respiratory Rate 18 03/28/22 17:06 Blood Pressure 141/82 H 03/28/22 17:06 Pulse Oximetry 99 03/28/22 17:06 Temperature 97.5 F L 03/28/22 17:06 Pulse Rate 96 03/28/22 20:33 Respiratory Rate 18 03/28/22 20:33 Blood Pressure 135/84 03/28/22 20:33 Pulse Oximetry 99 03/28/22 20:33 Medical Decision Making MDM Narrative Medical decision making narrative: ED COURSE AND MEDICAL DECISION MAKING: This 21-year-old femaleyear old patient presents with symptoms most suggestive of viral upper respiratory tract infection versus strep pharyngitis, doubt meningitis without neck pain or meningismus. Lungs are clear bilaterally without any respiratory distress or accessory muscle use. Bilateral tonsillar exudates. No airway compromise. Patient is treated symptomatically with Tylenol, IV fluids, Reglan, Benadryl, Deca
[2022-03-28 20:07] LABS: Influenza A QL RT-PCR Negative (Negative); Influenza B QL RT-PCR Negative (Negative); RSV RNA, RT-PCR Negative (Negative); SARS-CoV-2 RNA PCR Negative
[2022-03-28] MEDS: AMOXICILLIN/CLAVULANATE K 875-125 MG TAB 1 TABLET PO (20:16)
[2022-03-28] MEDS: diphenhydrAMINE HCl INJ 50 MG/ML VIAL 25 MG IV PUSH (20:16)
[2022-03-28] MEDS: METOCLOPRAMIDE HCL INJ 10 MG/2 ML VIAL IV PUSH (20:16)
[2022-03-28 20:33] VITALS: BP 135/84; PULSE 96; RESP 18; O2SAT 99
== END 2022-03-28 20:34 | disposition home or self-care (01) ==
PROVIDERS: Emergency Provider Emergency Medicine
DX: J02.0 Streptococcal pharyngitis (principal); Z20.822 Contact with and (suspected) exposure to COVID-19; E28.2 Polycystic ovarian syndrome; Z86.14 Personal history of Methicillin resistant Staphylococcus aureus infection; Z87.442 Personal history of urinary calculi; Z87.440 Personal history of urinary (tract) infections; Z87.891 Personal history of nicotine dependence
CPT/HCPCS: 87637; 87651; 96361; 96374; 96375; 99284; A9270; J0131; J1100; J1200; J2765; J7120

== ENCOUNTER 2022-11-28 12:13 | Emergency (ER) | payer OTHER, SELFPAY ==
[2022-11-28] VITALS (8 sets, daily range): BP systolic 101–124; BP diastolic 70–80; PULSE 65–109; RESP 15–21; TEMP 36.7–36.8; O2SAT 97–100
--- NOTE | ~2022-11-28 | US_ITS ---
EXAMINATION: US abdomen limited DATE: 11/28/2022 17:31 INDICATION: Right upper quadrant abdominal pain. TECHNIQUE: Multiple grayscale and Doppler ultrasound images of the abdomen were obtained. COMPARISON: None FINDINGS: The visualized portions of the head and body of the pancreas are normal. There is diffuse h epatic steatosis. There is normal flow in main portal vein. The gallbladder is normal in size and con tains sludge. No gallstones or gallbladder wall thickening. The common duct is normal and measures 4 mm. IMPRESSION: 1. Diffuse hepatic steatosis. Reviewed, dictated and finalized at location E.
--- NOTE | ~2022-11-28 | CT_ITS ---
EXAMINATION: CT abdomen pelvis w con DATE: 11/28/2022 17:50 INDICATION: Right upper quadrant abdominal pain. TECHNIQUE: Computed tomography (CT) of the abdomen and pelvis was performed with 100 mL Omnipaque 350 intravenous contrast. Automated exposure control and iterative reconstruction technique were employe d. The dose-length product was 1397.74 mGy-cm. COMPARISON: Ultrasound 11/28/2022 FINDINGS: The visualized portions of the lung bases demonstrate mild atelectasis. No pleural effusion . The heart size is normal. No pericardial effusion. There is diffuse hepatic steatosis. The gallblad guillaume, spleen, pancreas, adrenal glands, and kidneys are normal. There is a 12 mm mass of fat in left o vary, consistent with a dermoid. There are no dilated loops of bowel. There are changes of appendecto my. There are no pathologically enlarged lymph nodes. There is no free intraperitoneal fluid. The bon es are unremarkable. IMPRESSION: 1. Diffuse hepatic steatosis. 2. 12 mm left ovarian dermoid. Reviewed, dictated and finalized at location E.
[2022-11-28 12:37] LABS: Basophils Percent Auto 0.5 % (0.2-1.2); Eosinophils Absolute Auto 0.4 K/mm3 (0-0.3); Eosinophils Percent Auto 4.3 % (0-4.4); Hematocrit 44.1 % (37.0-47.0); Hemoglobin 14.5 g/dL (12.0-15.0); Immature Granulocyte Absolute 0.03 K/mm3 (0.00-0.031); Immature Granulocyte Percent A 0.3 % (0-0.5); Lymphocytes Absolute Auto 2.13 K/mm3 (0.9-3.2); Lymphocytes Percent Auto 24.4 % (18.3-44.2); Mean Corpuscular HGB Conc 32.9 g/dl (32-36); Mean Corpuscular Volume 88.2 fl (80-100); Mean Platelet Volume 12.6 fl (7.4-10.4); Monocytes Absolute Auto 0.5 K/mm3 (0.1-0.6); Monocytes Percent Auto 5.1 % (2.6-8.5); Neutrophils Absolute Auto 5.7 K/mm3 (1.3-6.7); Neutrophils Percent Auto 65.4 % (45.5-73.1); Platelet Count Result 170 k/mm3 (150-375); Red Cell Distribution Width 12.1 % (11.5-14.5); White Blood Count 8.7 K/mm3 (4.5-10.0)
[2022-11-28 12:54] LABS: Alanine Aminotransferase 41 U/L (6-35); Albumin Level 4.7 g/dL (3.5-5.1); Alkaline Phosphatase 64 U/L (38-126); Anion Gap 8 mmol/L (8-16); Aspartate Amino Transferase 36 U/L (14-36); Bilirubin,Total 0.7 mg/dL (0.2-1.3); Blood Urea Nitrogen 10 mg/dL (7-17); Calcium 9.3 mg/dL (8.4-10.2); Carbon Dioxide 25 mmol/L (22-30); Chloride 106 mmol/L (98-107); Estimated CRCL calculation 134 ml/min; Estimated Glomerular Filt Rate > 60; Glucose 95 mg/dL (65-110); Lipase 62 U/L (23-300); Potassium 3.8 mmol/L (3.4-5.0); Sodium 139 mmol/L (137-145)
[2022-11-28 14:11] LABS: Bacteria Urine 4+ /hpf; Need Manual Microscopic Reviewed; Non Pathogenic Casts 0-2; RBC Urine >100 /hpf (0-2); Squamous Epithelial Cell Urine Few /hpf (Few); WBC Urine >100 /hpf
[2022-11-28 14:12] LABS: Appearance Urine Turbid (Clear); Color Urine Red (Yellow)
[2022-11-28 14:14] LABS: Add Urine Microscopic? YES
[2022-11-28] MEDS: MORPHINE SULFATE (*CRX) 4 MG/ML INJ IV PUSH (17:38)
[2022-11-28] MEDS: ONDANSETRON INJ 4 MG/2 ML VIAL IV PUSH (17:39)
--- NOTE | 2022-11-28 17:45 | ED.ABDPAIN ---
HPI - Abdominal Pain General Chief Complaint: Abdominal Pain Stated Complaint: abdominal pain, diarrhea X1 week Time Seen by Provider: 11/28/22 16:04 History of Present Illness HPI narrative: This is a 22-year-old female, with past history of appendicitis status post appendectomy, who presents emergency department complaining of intermittent right upper quadrant abdominal pain and vomiting. The patient states her pain is rated 4-5/10, described as dull, nonradiating and exacerbated with direct pressure. She complains of hot flashes and chills, but no measured temperatures at home. Related Data Allergies Allergy/AdvReac Type Severity Reaction Status Date / Time No Known Allergies Allergy Verified 11/28/22 16:59 Review of Systems Review of Systems: CONSTITUTIONAL: Subjective fevers or chills denies or sweats. CARDIOVASCULAR: Denies chest pain, palpitations, or edema. RESPIRATORY: Denies cough or dyspnea. GASTROINTESTINAL: Right upper quadrant abdominal pain, nausea and vomiting denies diarrhea. GENITOURINARY: Last menstrual period now denies dysuria or hematuria. SKIN: Denies rash or itching. MUSCULOSKELETAL: Denies back pain, joint pain, or myalgia. NEUROLOGIC: Denies headache, numbness, dizziness, or weakness. PSYCHIATRIC: Denies anxiety or depression. [facility] Past Medical History Medical History Abdominal trauma BV (bacterial vaginosis) Depressive disorder Heterozygous MTHFR mutation C677T History of miscarriage 02-12-2018, 5 wks 1. Maternal varicella, non-immune MRSA (methicillin resistant Staphylococcus aureus) Nephrolithiasis Patient denies significant medical history PCOS (polycystic ovarian syndrome) Polyhydramnios affecting UTI (urinary tract infection) Vaginal delivery 12-21-2015, 40 wks 1. 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 HEAD: Normocephalic, atraumatic. EYES: PERRLA and EOMI. CHEST: Clear to auscultation. No respiratory distress. No wheezes rales or rhonchi HEART: Regular rate and rhythm. No murmur heard. Normal peripheral pulses. ABDOMEN: Soft, tender to palpation in the right upper quadrant, without rebound or guarding, nondistended, normal active bowel sounds. No CVA tenderness to palpation EXTREMITIES: Normal range of motion. No edema. SKIN: Warm, dry, no rash. NEURO: Alert and oriented x3. Moving all 4 limbs purposefully. PSYCH: Normal mood and affect. Course Course Emergency Course: 17:47 - CBC unremarkable. Chemistries demonstrate mildly elevated ALT of 41 but is otherwise unremarkable. UA demonstrates hematuria with pyuria. Abdominal ultrasound demonstrates changes consistent with hepatic steatosis but is not concerning for cholelithiasis or cholecystitis. CT demonstrates changes consistent with left ovarian dermoid and hepatic steatosis but is ot
== END 2022-11-28 19:34 | disposition home or self-care (01) ==
PROVIDERS: Emergency Provider Preventive Medicine Aerospace Medicine
DX: R10.11 Right upper quadrant pain (principal); R11.2 Nausea with vomiting, unspecified; E28.2 Polycystic ovarian syndrome; Z87.440 Personal history of urinary (tract) infections; Z87.442 Personal history of urinary calculi; Z86.14 Personal history of Methicillin resistant Staphylococcus aureus infection; Z87.891 Personal history of nicotine dependence; K76.0 Fatty (change of) liver, not elsewhere classified; D27.1 Benign neoplasm of left ovary
CPT/HCPCS: 36415; 74177; 76705; 80053; 81001; 81025; 83690; 85025; 87086; 96374; 96375; 99284; J2270; J2405; Q9967

== ENCOUNTER 2023-06-09 11:44 | Emergency (ER) | payer OTHER, SELFPAY ==
[2023-06-09 12:14] VITALS: BP 109/69; PULSE 83; RESP 16; TEMP 36.8; O2SAT 100
[2023-06-09 12:20] VITALS: BP 145/97; PULSE 70; RESP 18; TEMP 36.4; O2SAT 99
--- NOTE | 2023-06-09 17:12 | ED.SKABFB ---
HPI - Skin/Abscess/Foreign Bdy General Chief complaint: Skin/Abscess/Foreign Body Stated complaint: rash, head to toe Time Seen by Provider: 06/09/23 17:01 History of Present Illness HPI narrative: 23-year-old female presents to emergency department for diffuse rash throughout her body x5 days. Patient states the rash is in the folds of her elbows, on her back, between her breasts, in her groin. She states rash is very itchy it is worse when it is touched or when there is hot water touching the rash. She denies feeling skin, fever, recent change in medications, detergents, lotions, pets or environment. States her PCP sent her here for a steroid shot. States she has been taking Benadryl and using topical triamcinolone and cortisone cream without improvement. Related Data Allergies Allergy/AdvReac Type Severity Reaction Status Date / Time No Known Allergies Allergy Verified 06/09/23 11:46 Review of Systems Review of Systems: CONSTITUTIONAL: Denies fever, chills, or sweats. EYES: Denies visual changes, redness, or discharge. ENT: Denies rhinorrhea, congestion, sore throat, or otalgia. CARDIOVASCULAR: Denies chest pain, palpitations, or edema. RESPIRATORY: Denies cough or dyspnea. GASTROINTESTINAL: Denies abdominal pain, nausea, vomiting, or diarrhea. GENITOURINARY: Denies dysuria or hematuria. SKIN: See HPI MUSCULOSKELETAL: Denies back pain, joint pain, or myalgia. NEUROLOGIC: Denies headache, numbness, or weakness. PSYCHIATRIC: Denies anxiety or depression. [facility] Past Medical History Medical History Abdominal trauma BV (bacterial vaginosis) Depressive disorder Heterozygous MTHFR mutation C677T History of miscarriage 02-12-2018, 5 wks 1. Maternal varicella, non-immune MRSA (methicillin resistant Staphylococcus aureus) Nephrolithiasis Patient denies significant medical history PCOS (polycystic ovarian syndrome) Polyhydramnios affecting UTI (urinary tract infection) Vaginal delivery 12-21-2015, 40 wks 1. 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 HEAD: Normocephalic, atraumatic. ENT: Nares clear, no rhinorrhea or epistaxis. Mucous membranes moist. NECK: Supple. EXTREMITIES: Normal range of motion. No edema. SKIN: Erythematous patchy rash to the folds of the breast, posterior shoulders outlining her bra line, right groin, and in the anterior cubital fossa. No satellite lesions, warmth or drainage, scaling, petechia or purpura. Negative Nikolsky sign. No central clearing. NEURO: No focal deficits. Alert and oriented x3 Course Vital Signs Vital signs: Vital Signs Temperature 98.2 F 06/09/23 12:14 Pulse Rate 83 06/09/23 12:14 Respiratory Rate 16 06/09/23 12:14 Blood Pressure 109/69 06/09/23 12:14 Pulse Oximetry 100 06/09/23 12:14 Temperature 97
[2023-06-09] MEDS: dexAMETHasone SOD PHOS INJ 10 MG/ML 1 ML VIAL IM (17:17)
[2023-06-09] MEDS: hydrOXYzine HCL 25 MG TABLET PO (17:17)
[2023-06-09 17:35] VITALS: BP 121/71; PULSE 84; RESP 16; O2SAT 100
== END 2023-06-09 17:35 | disposition home or self-care (01) ==
LOC: ANHED 17:31
PROVIDERS: Emergency Provider Physician Assistant; PCP Physician Assistant
DX: L30.9 Dermatitis, unspecified (principal); E28.2 Polycystic ovarian syndrome; Z86.14 Personal history of Methicillin resistant Staphylococcus aureus infection; Z87.442 Personal history of urinary calculi; Z87.440 Personal history of urinary (tract) infections; Z87.891 Personal history of nicotine dependence
CPT/HCPCS: 81025; 96372; 99283; A9270; J1100

== ENCOUNTER 2023-10-14 11:11 | Emergency (ER) | payer OTHER, SELFPAY ==
[2023-10-14 11:14] VITALS: BP 113/78; PULSE 70; RESP 14; TEMP 36.4; O2SAT 100
[2023-10-14 11:15] VITALS: BP 113/78; PULSE 70; RESP 14; TEMP 36.4; O2SAT 100
--- NOTE | 2023-10-14 12:11 | ED.SKABFB ---
HPI - Skin/Abscess/Foreign Bdy General Chief complaint: Skin/Abscess/Foreign Body Stated complaint: L eye swelling Time Seen by Provider: 10/14/23 11:24 History of Present Illness HPI narrative: 23-year-old female presents to the emergency room for evaluation of left upper eyelid swelling and redness for 3 days. Patient states the area burned initially and now it is just painful. Denies any ocular discharge. Denies any injury or trauma. States due to the swelling she is developed double vision in the left eye. States does not were contacts or eyeglasses. Also endorses a pruritic rash to her left arm. Has not taken any antihistamines. States has been applying OTC topical steroid with no improvement. Related Data Allergies Allergy/AdvReac Type Severity Reaction Status Date / Time No Known Allergies Allergy Verified 10/14/23 11:15 Review of Systems Review of Systems: ROS unremarkable except for noted in HPI PMFSH Past Medical History Medical History Abdominal trauma BV (bacterial vaginosis) Depressive disorder Heterozygous MTHFR mutation C677T History of miscarriage 02-12-2018, 5 wks 1. Maternal varicella, non-immune MRSA (methicillin resistant Staphylococcus aureus) Nephrolithiasis Patient denies significant medical history PCOS (polycystic ovarian syndrome) Polyhydramnios affecting UTI (urinary tract infection) Vaginal delivery 12-21-2015, 40 wks 1. 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 HEAD: Normocephalic, atraumatic. EYES: Conjunctivae normal, PERRLA and EOMI. erythema and edema noted to left upper eyelid. crusting noted to upper eyelashes NECK: Supple. No meningeal signs. No adenopathy or masses. No carotid bruits or JVD CHEST: Clear to auscultation. No respiratory distress. No wheezes rales or rhonchi. No tenderness. HEART: Regular rate and rhythm. No murmur heard. Normal peripheral pulses. ABDOMEN: Soft, nontender, nondistended, normal active bowel sounds. : Normal external male/female exam. BACK: No CVA tenderness; No cervical/thoracic/lumbar tenderness, step-offs, bony abnormality; FROM EXTREMITIES: Normal range of motion. No edema. No clubbing or cyanosis SKIN: Warm, dry, no rash. No noted wounds NEURO: No focal deficits. Alert and oriented x3. MAEW. CN's II-XI intact bilaterally, normal gait PSYCH: Cooperative. Normal mood and affect. Course Vital Signs Vital signs: Vital Signs Temperature 36.4 C 10/14/23 11:14 Pulse Rate 70 10/14/23 11:14 Respiratory Rate 14 10/14/23 11:14 Blood Pressure 113/78 10/14/23 11:14 Pulse Oximetry 100 10/14/23 11:14 Temperature 36.4 C 10/14/23 11:15 Pulse Rate 70 10/14/23 11:15 Respiratory Rate 14 10/14/23 11:15 Blood Pressure 113/78 10/14/23 11:15 Pulse Ox
[2023-10-14] MEDS: FAMOTIDINE 20 MG/2 ML VIAL IV PUSH (12:21)
[2023-10-14] MEDS: diphenhydrAMINE HCl INJ 50 MG/ML VIAL 25 MG IV PUSH (12:21)
[2023-10-14] MEDS: dexAMETHasone SOD PHOS INJ 10 MG/ML 1 ML VIAL IV PUSH (12:23)
[2023-10-14 12:41] LABS: Basophils Percent Auto 0.6 % (0.2-1.2); Eosinophils Absolute Auto 0.2 K/mm3 (0-0.3); Eosinophils Percent Auto 2.2 % (0-4.4); Hematocrit 42.1 % (37.0-47.0); Hemoglobin 13.8 g/dL (12.0-15.0); Immature Granulocyte Absolute 0.02 K/mm3 (0.00-0.031); Immature Granulocyte Percent A 0.3 % (0-0.5); Lymphocytes Absolute Auto 2.09 K/mm3 (0.9-3.2); Lymphocytes Percent Auto 30.1 % (18.3-44.2); Mean Corpuscular HGB Conc 32.8 g/dl (32-36); Mean Corpuscular Hemoglobin 28.9 pg (26-34); Mean Corpuscular Volume 88.3 fl (80-100); Mean Platelet Volume 11.6 fl (7.4-10.4); Monocytes Absolute Auto 0.4 K/mm3 (0.1-0.6); Neutrophils Absolute Auto 4.3 K/mm3 (1.3-6.7); Neutrophils Percent Auto 61.8 % (45.5-73.1); Platelet Count Result 202 k/mm3 (150-375); Red Blood Count 4.77 M/mm3 (4.2-5.4); Red Cell Distribution Width 12.1 % (11.5-14.5); White Blood Count 6.9 K/mm3 (4.5-10.0)
[2023-10-14 12:58] LABS: Alanine Aminotransferase 21 U/L (6-35); Albumin Level 4.8 g/dL (3.5-5.1); Alkaline Phosphatase 60 U/L (38-126); Anion Gap 11 mmol/L (4-12); Aspartate Amino Transferase 27 U/L (14-36); Bilirubin,Total 0.7 mg/dL (0.2-1.3); Blood Urea Nitrogen 14 mg/dL (7-17); Calcium 9.3 mg/dL (8.4-10.2); Carbon Dioxide 29 mmol/L (22-30); Chloride 98 mmol/L (98-107); Estimated CRCL calculation 114 ml/min; Estimated Glomerular Filt Rate > 60; Glucose 102 mg/dL (65-110); Potassium 4.3 mmol/L (3.4-5.0); Sodium 138 mmol/L (137-145)
[2023-10-14 14:35] VITALS: BP 107/69; PULSE 90; RESP 16; O2SAT 99
== END 2023-10-14 14:35 | disposition home or self-care (01) ==
PROVIDERS: Emergency Provider Nurse Practitioner Family; PCP Physician Assistant
DX: H01.004 Unspecified blepharitis left upper eyelid (principal); E28.2 Polycystic ovarian syndrome; Z86.14 Personal history of Methicillin resistant Staphylococcus aureus infection; Z87.442 Personal history of urinary calculi; Z87.440 Personal history of urinary (tract) infections; Z87.891 Personal history of nicotine dependence
CPT/HCPCS: 36415; 80053; 84443; 85025; 96374; 96375; 99284; J1100; J1200

== ENCOUNTER 2024-04-10 14:34 | Emergency (ER) | payer OTHER, SELFPAY ==
[2024-04-10] VITALS (9 sets, daily range): BP systolic 107–136; BP diastolic 70–95; PULSE 68–97; RESP 10–23; TEMP 36.8; O2SAT 97–100
--- NOTE | ~2024-04-10 | CT_ITS ---
CLINICAL INDICATION: Right upper quadrant pain COMPARISON: 11/28/2022. TECHNIQUE: Multiple contiguous axial images of the abdomen and pelvis were performed following the ad ministration of with 100 mL Omnipaque-350 intravenous contrast The dose-length product (DLP) was 1661.22 mGy-cm. Automated exposure control and iterative reconstruction technique were employed. FINDINGS/OBSERVATIONS: Visualized lower thorax: The bilateral lung bases are clear. The heart is of normal size, without pericardial effusion. Small hiatal hernia is present. Liver: The liver enhances homogeneously and is enlarged measuring 19 cm in longitudinal dimension. Gallbladder and biliary system: The gallbladder is only minimally distended, and otherwise unremarkable. Pancreas: The pancreas enhances homogeneously without ductal dilatation. Spleen: The spleen enhances homogeneously and is not enlarged measuring 8 cm in longitudinal dimension. Kidneys: The bilateral kidneys enhance symmetrically without hydronephrosis or renal calculi. Adrenal glands: Unremarkable. Gastrointestinal tract: Fecal stasis within the colon Appendix: Surgically absent. Vasculature: Unremarkable. Lymph nodes: No pathologically enlarged or morphologically suspicious lymph nodes within the retroperitoneum or at the root of the mesentery. Pelvic structures: The bladder is distended, and otherwise unremarkable. Fat attenuation within the left ovary, unchanged from 2022 representing a dermoid cyst. The uterus is retroverted and retroflexed. Body wall and musculoskeletal: Small fat-containing umbilical hernia. No significant degenerative disease within the lower thoracic or lumbosacral spine. IMPRESSION: Hepatomegaly. Left-sided dermoid cyst. No additional abnormality is appreciated. Reviewed, dictated and finalized at location [facility] [employer]
--- NOTE | 2024-04-10 18:19 | ED_ITS ---
HPI - Abdominal Pain General Chief Complaint: Abdominal Pain <Emeterio Orozco MD - Last Filed: 04/10/24 18:26> Stated Complaint: R sided abd pain, hematemesis <Emeterio Orozco MD - Last Filed: 04/10/24 18:26> Time Seen by Provider: 04/10/24 18:06 <Emeterio Orozco MD - Last Filed: 04/10/24 18:26> History of Present Illness HPI narrative: Patient is a 24-year-old female who presents ER with right-sided abdominal pain. Began this morning when she woke up. [place] like she needed to have bowel movement. She is unable to and then started having multiple episodes of vomiting. No alleviating factors. Cannot identify aggravating factors outside of palpating area. No history of gallstones. She has had an appendectomy. < Emeterio Orozco MD - Last Filed: 04/10/24 18:26> Related Data Allergies/Adverse Reactions: Allergies Allergy/AdvReac Type Severity Reaction Status Date / Time No Known Allergies Allergy Verified 04/10/24 14:37 <Emeterio Orozco MD - Last Filed: 04/10/24 18:26> Review of Systems 2 Review of Systems: All systems reviewed & are unremarkable except as noted in HPI and below <Emeterio Orozco MD - Last Filed: 04/10/24 18:26> Constitutional: Constitutional: Reports no additional constitutional complaints <Emeterio Orozco MD - Last Filed: 04/10/24 18:26> ENT: Reports system reviewed and no additional complaints, except as documented <Emeterio Orozco MD - Last Filed: 04/10/24 18:26> Cardiovascular: Cardiovascular: Reports no additional cardiovascular complaints <Emeterio Orozco MD - Last Filed: 04/10/24 18:26> Respiratory: Respiratory: Reports no additional respiratory complaints < Emeterio Orozco MD - Last Filed: 04/10/24 18:26> Gastrointestinal: Gastrointestinal: Reports abdominal pain, Denies constipation, Denies diarrhea, Reports nausea and Reports vomiting <Emeterio Orozco MD - Last Filed: 04/10/24 18:26> Genitourinary: Genitourinary: Reports no additional female genitourinary complaints <Emeterio Orozco MD - Last Filed: 04/10/24 18:26> [facility] Past Medical History Medical History: Medical History Abdominal trauma BV (bacterial vaginosis) Depressive disorder Heterozygous MTHFR mutation C677T History of miscarriage 02-12-2018, 5 wks 1. Maternal varicella, non-immune MRSA (methicillin resistant Staphylococcus aureus) Nephrolithiasis Patient denies significant medical history PCOS (polycystic ovarian syndrome) Polyhydramnios affecting UTI (urinary tract infection) Vaginal delivery 12-21-2015, 40 wks 1. M, 7lbs 7oz, Vaginal <Emeterio Orozco MD - Last Filed: 04/10/24 18:26> Surgical History Surgical History: Surgical History Hx of appendectomy Hx of tonsillectomy <Emeterio Orozco MD - Last Filed: 04/10/24 18:26> Family History Family History: Family History Mother Heart disease Hypertension Diabetes mellitus Father Diabetes mellitus Heart disease Hypertension Other No pertinent family history <Emeterio Orozco MD - Last Filed: 04/10/24 18:26> Social History Social History: Social History Years smoked: 2 Smoking status: Former smoker Tobacco type: cigarettes Second hand tobacco smoke exposure: Yes Alcohol intake: never Substance use: never Substance use type: does not use Living arrangements: with friend(s) Occupation/Education: occupation 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 HEAD: Normocephalic, atraumatic. ENT: Mucous membranes moist. CHEST: Clear to auscultation. No respiratory distress. HEART: Regular rate and rhythm. Normal peripheral pulses. ABDOMEN: Soft, TTP RUQ with guarding, nondistended. EXTREMITIES: Normal range of motion. No edema. SKIN: Warm, dry, no rash. NEURO: Alert and oriented x3. PSYCH: Normal mood and affect. <Emeterio Orozco MD - Last Filed: 04/10/24 18:26> Course Course Emergency Course: Z 21:34: Patient signed out pending CT results. CT showed hepatomegaly and a dermoid cyst but no other acute findings. Right upper quadrant ultrasound without any obvious gallstones. Sonographic Hussein's negative. Laboratory studies within normal limits. Patient's pain was controlled in the ED. Patient's symptoms possibly due to biliary colic. Discussed pain medication and low-fat diet. She will be discharged with surgery f/u. Given return precautions. <Patel Callejas MD - Last Filed: 04/10/24 21:39> Vital Signs Vital signs: Vital Signs Temperature 98.2 F 04/10/24 15:08 Pulse Rate 97 04/10/24 15:08 Respiratory Rate 16 04/10/24 15:08 Blood Pressure 136/95 H 04/10/24 15:08 Pulse Oximetry 98 04/10/24 15:08 Temperature 98.2 F 04/10/24 15:08 Pulse Rate 87 04/10/24 20:31 Respiratory Rate 22 H 04/10/24 20:31 Blood Pressure 112/79 04/10/24 20:31 Pulse Oximetry 99 04/10/24 20:31 <Emeterio Orozco MD - Last Filed: 04/10/24 18:26> Vital Signs Temperature 98.2 F 04/10/24 15:08 Pulse Rate 97 04/10/24 15:08 Respiratory Rate 16 04/10/24 15:08 Blood Pressure 136/95 H 04/10/24 15:08 Pulse Oximetry 98 04/10/24 15:08 Temperature 98.2 F 04/10/24 15:08 Pulse Rate 87 04/10/24 20:31 Respiratory Rate 22 H 04/10/24 20:31 Blood Pressure 112/79 04/10/24 20:31 Pulse Oximetry 99 04/10/24 20:31 <Patel Callejas MD - Last Filed: 04/10/24 21:39> MDM - Abdominal Pain Lab Data Result diagrams: 04/10/24 18:17 04/10/24 18:17 <Emeterio Orozco MD - Last Filed: 04/10/24 18:26> Labs: Lab Results 04/10/24 04/10/24 04/10/24 Range/Units 18:17 20:09 20:40 WBC 7.5 (4.5-10.0) K/mm3 RBC 4.79 (4.2-5.4) M/mm3 Hgb 13.9 (12.0-15.0) g/dL Hct 42.2 (37.0-47.0) % MCV 88.1 (80-100) fl MCH 29.0 (26-34) pg MCHC 32.9 (32-36) g/dl RDW 12.6 (11.5-14.5) % Plt Count 223 (150-375) k/mm3 MPV 11.2 H (7.4-10.4) fl Immature Gran % (Auto) 0.1 (0-0.5) % Neut % (Auto) 50.1 (45.5-73.1) % Lymph % (Auto) 39.9 (18.3-44.2) % [place] % (Auto) 7.5 (2.6-8.5) % Eos % (Auto) 1.7 (0-4.4) % Baso % (Auto) 0.7 (0.2-1.2) % Lymph # (Auto) 2.97 (0.9-3.2) K/mm3 [place] # (Auto) 0.6 (0.1-0.6) K/mm3 Eos # (Auto) 0.1 (0-0.3) K/mm3 Baso # (Auto) 0.1 (0.0-0.1) K/mm3 Abs Immat Gran (auto) 0.01 (0.00-0.031) K/mm3 Absolute Neuts (auto) 3.7 (1.3-6.7) K/mm3 Absolute Nucleated RBC 0.000 (0.0-0.012) K/mm3 Nucleated RBC % 0.0 (0.0-0.2) % Sodium 140 (137-145) mmol/L Potassium 4.0 (3.4-5.0) mmol/L Chloride 103 (98-107) mmol/L Carbon Dioxide 26 (22-30) mmol/L Anion Gap 11 (4-12) mmol/L BUN 13 (7-17) mg/dL Creatinine 0.52 L (0.7-1.0) mg/dL Estim Creat Clear Calc 144 ml/min Estimated GFR > 60 (59 - ) Glucose 99 (65-110) mg/dL Calcium 9.7 (8.4-10.2) mg/dL Total Bilirubin 0.7 (0.2-1.3) mg/dL AST 25 (14-36) U/L ALT 27 (6-35) U/L Alkaline Phosphatase 55 (38-126) U/L Total Protein 8.0 (6.3-8.2) g/dL Albumin 4.6 (3.5-5.1) g/dL Lipase 59 (23-300) U/L Urine Color Yellow (Yellow) Urine Appearance Cloudy H (Clear) Urine pH 6.0 (5.0-9.0) Ur Specific [place] 1.024 (1.001-1.035) Urine Protein Negative (Negative) mg/dL Urine Glucose (UA) Negative (Negative) mg/dL Urine Ketones Negative (Negative) mg/dL Ur Blood (Man) Negative (Negative) Urine Nitrate Negative (Negative) Urine Bilirubin Negative (Negative) Urine Urobilinogen 1.0 (<2.0) mg/dL Leukocyte Esterase Rfl Negative (Negative) GWENDOLYN/UL Urine RBC 0-2 (0-2) /hpf Urine WBC 0-5 (0-3) /hpf Ur Squamous Epith Cells Occasional (Few) /hpf Urine Bacteria None seen /hpf Urine Casts 0-2 POC Urine HCG, Qual Negative (Negative) <Emeterio Orozco MD - Last Filed: 04/10/24 18:26> Lab Results 04/10/24 04/10/24 04/10/24 Range/Units 18:17 20:09 20:40 WBC 7.5 (4.5-10.0) K/mm3 RBC 4.79 (4.2-5.4) M/mm3 Hgb 13.9 (12.0-15.0) g/dL Hct 42.2 (37.0-47.0) % MCV 88.1 (80-100) fl MCH 29.0 (26-34) pg MCHC 32.9 (32-36) g/dl RDW 12.6 (11.5-14.5) % Plt Count 223 (150-375) k/mm3 MPV 11.2 H (7.4-10.4) fl Immature Gran % (Auto) 0.1 (0-0.5) % Neut % (Auto) 50.1 (45.5-73.1) % Lymph % (Auto) 39.9 (18.3-44.2) % [place] % (Auto) 7.5 (2.6-8.5) % Eos % (Auto) 1.7 (0-4.4) % Baso % (Auto) 0.7 (0.2-1.2) % Lymph # (Auto) 2.97 (0.9-3.2) K/mm3 [place] # (Auto) 0.6 (0.1-0.6) K/mm3 Eos # (Auto) 0.1 (0-0.3) K/mm3 Baso # (Auto) 0.1 (0.0-0.1) K/mm3 Abs Immat Gran (auto) 0.01 (0.00-0.031) K/mm3 Absolute Neuts (auto) 3.7 (1.3-6.7) K/mm3 Absolute Nucleated RBC 0.000 (0.0-0.012) K/mm3 Nucleated RBC % 0.0 (0.0-0.2) % Sodium 140 (137-145) mmol/L Potassium 4.0 (3.4-5.0) mmol/L Chloride 103 (98-107) mmol/L Carbon Dioxide 26 (22-30) mmol/L Anion Gap 11 (4-12) mmol/L BUN 13 (7-17) mg/dL Creatinine 0.52 L (0.7-1.0) mg/dL Estim Creat Clear Calc 144 ml/min Estimated GFR > 60 (59 - ) Glucose 99 (65-110) mg/dL Calcium 9.7 (8.4-10.2) mg/dL Total Bilirubin 0.7 (0.2-1.3) mg/dL AST 25 (14-36) U/L ALT 27 (6-35) U/L Alkaline Phosphatase 55 (38-126) U/L Total Protein 8.0 (6.3-8.2) g/dL Albumin 4.6 (3.5-5.1) g/dL Lipase 59 (23-300) U/L Urine Color Yellow (Yellow) Urine Appearance Cloudy H (Clear) Urine pH 6.0 (5.0-9.0) Ur Specific [place] 1.024 (1.001-1.035) Urine Protein Negative (Negative) mg/dL Urine Glucose (UA) Negative (Negative) mg/dL Urine Ketones Negative (Negative) mg/dL Ur Blood (Man) Negative (Negative) Urine Nitrate Negative (Negative) Urine Bilirubin Negative (Negative) Urine Urobilinogen 1.0 (<2.0) mg/dL Leukocyte Esterase Rfl Negative (Negative) GWENDOLYN/UL Urine RBC 0-2 (0-2) /hpf Urine WBC 0-5 (0-3) /hpf Ur Squamous Epith Cells Occasional (Few) /hpf Urine Bacteria None seen /hpf Urine Casts 0-2 POC Urine HCG, Qual Negative (Negative) <Patel Callejas MD - Last Filed: 04/10/24 21:39> Imaging Data Radiologist's impression: ITS Impressions Abdomen/Pelvis CT 04/10/24 21:13 IMPRESSION: Hepatomegaly. Left-sided dermoid cyst. No additional abnormality is appreciated. <Emeterio Orozco MD - Last Filed: 04/10/24 18:26> ITS Impressions Abdomen/Pelvis CT 04/10/24 21:13 IMPRESSION: Hepatomegaly. Left-sided dermoid cyst. No additional abnormality is appreciated. <Patel Callejas MD - Last Filed: 04/10/24 21:39> Discharge Plan Discharge Clinical Impression: Abdominal pain, RUQ <Emeterio Orozco MD - Last Filed: 04/10/24 18:26> Patient Disposition: Home, Self-Care <Emeterio Orozco MD - Last Filed: 04/10/24 18:26> Condition: Stable <Emeterio Orozco MD - Last Filed: 04/10/24 18:26> Instructions: Antibiotic Form, Biliary Colic (ED) <Emeterio Orozco MD - Last Filed: 04/10/24 18:26> Additional Instructions: Please use Motrin, Tylenol for pain control. Zofran for nausea. Return to the ED if you develop fevers, severe persistent right upper quadrant abdominal pain or any new or worsening symptoms. Follow-up general surgery. <Emeterio Orozco MD - Last Filed: 04/10/24 18:26> Patient Language: Marshallese <Emeterio Orozco MD - Last Filed: 04/10/24 18:26> Prescriptions: New acetaminophen 500 mg tablet 1,000 mg PO TID PRN (Reason: samantha) 7 Days Qty: 42 0RF ibuprofen 800 mg tablet 800 mg PO TID PRN (Reason: pain) 7 Days Qty: 21 0RF ondansetron 4 mg tablet,disintegrating 4 mg PO Q8H PRN (Reason: nausea and vomiting) Qty: 30 0RF No Action erythromycin 5 mg/gram (0.5 %) ointment 1 applic LEFT EYE DAILY Qty: 3.5 0RF oxycodone-acetaminophen [Endocet] 5-325 mg tablet 1 tablet PO Q12H PRN (Reason: pain) Qty: 6 0RF ondansetron 4 mg tablet,disintegrating 4 mg PO Q8H PRN (Reason: nausea and vomiting) Qty: 15 0RF hydroxyzine HCl 25 mg tablet 25 mg PO QID PRN (Reason: itching) Qty: 14 0RF methylprednisolone [Medrol (Filippo)] 4 mg tablets,dose pack See Rx Instructions PO .COMPLEX Qty: 21 0RF Rx Instructions: orally per package directions <Emeterio Orozco MD - Last Filed: 04/10/24 18:26> Follow-up/Referrals: UNKNOWN,DOCTOR [Primary Care Provider] - Aram Pedraza DO [Physician] - 1 Week (Biliary colic ) <Emeterio Orozco MD - Last Filed: 04/10/24 18:26>
[2024-04-10 18:23] LABS: Basophils Absolute Auto 0.1 K/mm3 (0.0-0.1); Basophils Percent Auto 0.7 % (0.2-1.2); Eosinophils Absolute Auto 0.1 K/mm3 (0-0.3); Eosinophils Percent Auto 1.7 % (0-4.4); Hematocrit 42.2 % (37.0-47.0); Hemoglobin 13.9 g/dL (12.0-15.0); Immature Granulocyte Absolute 0.01 K/mm3 (0.00-0.031); Immature Granulocyte Percent A 0.1 % (0-0.5); Lymphocytes Absolute Auto 2.97 K/mm3 (0.9-3.2); Lymphocytes Percent Auto 39.9 % (18.3-44.2); Mean Corpuscular HGB Conc 32.9 g/dl (32-36); Mean Corpuscular Volume 88.1 fl (80-100); Mean Platelet Volume 11.2 fl (7.4-10.4); Monocytes Absolute Auto 0.6 K/mm3 (0.1-0.6); Monocytes Percent Auto 7.5 % (2.6-8.5); Neutrophils Absolute Auto 3.7 K/mm3 (1.3-6.7); Neutrophils Percent Auto 50.1 % (45.5-73.1); Platelet Count Result 223 k/mm3 (150-375); Red Blood Count 4.79 M/mm3 (4.2-5.4); Red Cell Distribution Width 12.6 % (11.5-14.5); White Blood Count 7.5 K/mm3 (4.5-10.0)
[2024-04-10] MEDS: ONDANSETRON INJ 4 MG/2 ML VIAL IV PUSH (18:30)
[2024-04-10] MEDS: SODIUM CHLORIDE 0.9% IV 1,000 ML 999 ML IV CONT (18:30)
[2024-04-10] MEDS: MORPHINE SULFATE (*CRX) 4 MG/ML INJ IV PUSH ×2 (18:30→22:19)
[2024-04-10 18:39] LABS: Alanine Aminotransferase 27 U/L (6-35); Albumin Level 4.6 g/dL (3.5-5.1); Alkaline Phosphatase 55 U/L (38-126); Anion Gap 11 mmol/L (4-12); Aspartate Amino Transferase 25 U/L (14-36); Bilirubin,Total 0.7 mg/dL (0.2-1.3); Blood Urea Nitrogen 13 mg/dL (7-17); Calcium 9.7 mg/dL (8.4-10.2); Carbon Dioxide 26 mmol/L (22-30); Chloride 103 mmol/L (98-107); Estimated CRCL calculation 144 ml/min; Estimated Glomerular Filt Rate > 60; Glucose 99 mg/dL (65-110); Lipase 59 U/L (23-300); Sodium 140 mmol/L (137-145)
[2024-04-10 20:20] LABS: Add Urine Microscopic? YES; Appearance Urine Cloudy (Clear); Bacteria Urine None Seen /hpf; Bilirubin Urine Negative (Negative); Blood Urine Negative (Negative); Color Urine Yellow (Yellow); Glucose Urine UA Negative (Negative); Ketones Urine Negative (Negative); Leukocyte Esterase Ur Negative LEU/UL (Negative); Nitrate Urine Negative (Negative); Non Pathogenic Casts 0-2; Protein Urine Negative (Negative); RBC Urine 0-2 /hpf (0-2); Specific Grav Ur 1.024 (1.001-1.035); Squamous Epithelial Cell Urine Occasional /hpf (Few); WBC Urine 0-5 /hpf (0-3)
[2024-04-10 20:42] LABS: BEDSIDEPREGUCG Negative (Negative)
[2024-04-10] MEDS: ACETAMINOPHEN 500 MG TABLET 1000 MG PO (22:19)
[2024-04-10] MEDS: KETOROLAC 15 MG/ML VIAL (*BKC) IV PUSH (22:19)
== END 2024-04-10 22:25 | disposition home or self-care (01) ==
PROVIDERS: Emergency Provider Emergency Medicine
DX: R10.11 Right upper quadrant pain (principal); E28.2 Polycystic ovarian syndrome; Z86.14 Personal history of Methicillin resistant Staphylococcus aureus infection; Z87.442 Personal history of urinary calculi; Z87.440 Personal history of urinary (tract) infections; Z87.891 Personal history of nicotine dependence; D27.1 Benign neoplasm of left ovary; R16.0 Hepatomegaly, not elsewhere classified
CPT/HCPCS: 36415; 74177; 80053; 81001; 81025; 83690; 85025; 96361; 96374; 96375; 96376; 99284; A9270; J1885; J2270; J2405; J7030; Q9967

== ENCOUNTER 2024-04-12 20:22 | Emergency (ER) | payer OTHER, MEDICAID, SELFPAY ==
[2024-04-12 20:28] VITALS: BP 142/86; PULSE 85; RESP 16; TEMP 36.4; O2SAT 100
[2024-04-12 20:48] LABS: Basophils Absolute Auto 0.1 K/mm3 (0.0-0.1); Basophils Percent Auto 0.6 % (0.2-1.2); Eosinophils Absolute Auto 0.1 K/mm3 (0-0.3); Eosinophils Percent Auto 1.6 % (0-4.4); Hematocrit 39.7 % (37.0-47.0); Hemoglobin 13.2 g/dL (12.0-15.0); Immature Granulocyte Absolute 0.02 K/mm3 (0.00-0.031); Immature Granulocyte Percent A 0.2 % (0-0.5); Lymphocytes Absolute Auto 2.54 K/mm3 (0.9-3.2); Lymphocytes Percent Auto 31.5 % (18.3-44.2); Mean Corpuscular HGB Conc 33.2 g/dl (32-36); Mean Corpuscular Hemoglobin 28.9 pg (26-34); Mean Corpuscular Volume 87.1 fl (80-100); Mean Platelet Volume 11.4 fl (7.4-10.4); Monocytes Absolute Auto 0.5 K/mm3 (0.1-0.6); Monocytes Percent Auto 5.8 % (2.6-8.5); Neutrophils Absolute Auto 4.9 K/mm3 (1.3-6.7); Neutrophils Percent Auto 60.3 % (45.5-73.1); Platelet Count Result 191 k/mm3 (150-375); Red Blood Count 4.56 M/mm3 (4.2-5.4); Red Cell Distribution Width 12.4 % (11.5-14.5); White Blood Count 8.1 K/mm3 (4.5-10.0)
[2024-04-12 20:57] LABS: Add Urine Microscopic? NO; Appearance Urine Clear (Clear); Bilirubin Urine Negative (Negative); Blood Urine Negative (Negative); Color Urine Yellow (Yellow); Glucose Urine UA Negative (Negative); Ketones Urine Negative (Negative); Leukocyte Esterase Ur Negative LEU/UL (Negative); Nitrate Urine Negative (Negative); Protein Urine Negative (Negative)
[2024-04-12 21:03] LABS: Alanine Aminotransferase 27 U/L (6-35); Albumin Level 4.5 g/dL (3.5-5.1); Alkaline Phosphatase 57 U/L (38-126); Anion Gap 11 mmol/L (4-12); Aspartate Amino Transferase 27 U/L (14-36); Bilirubin,Total 0.6 mg/dL (0.2-1.3); Blood Urea Nitrogen 14 mg/dL (7-17); Carbon Dioxide 25 mmol/L (22-30); Chloride 105 mmol/L (98-107); Estimated CRCL calculation 129 ml/min; Estimated Glomerular Filt Rate > 60; Glucose 94 mg/dL (65-110); Lipase 59 U/L (23-300); Potassium 3.8 mmol/L (3.4-5.0); Sodium 141 mmol/L (137-145)
--- NOTE | 2024-04-13 00:25 | ED.ABDPAIN ---
HPI - Abdominal Pain General Chief Complaint: Abdominal Pain Stated Complaint: gallbladder/R flank pain/febrile Time Seen by Provider: 04/13/24 00:12 Source: patient Mode of arrival: ambulatory Limitations: no limitations History of Present Illness HPI narrative: This is a 24-year-old female who presents to the ED for chief complaint of worsening right upper quadrant pain over the past several days. States she was here 2 days ago and told she has biliary colic. States that she has not followed any specific diet since then. States that she has been very nauseous and had multiple episodes of vomiting. States that since Friday she has tried eating several bites of cheese burgers, sausage and egg for breakfast which all made her very nauseous. States she has taken her Tylenol today because she had a fever of 102?F this morning. States the pain starts in the right upper quadrant, radiates to right flank and radiates to right shoulder pain. denies urinary symptoms. Denies Related Data Allergies Allergy/AdvReac Type Severity Reaction Status Date / Time No Known Allergies Allergy Verified 04/12/24 20:32 Review of Systems Review of Systems: All systems as dictated in HPI [facility] Past Medical History Medical History Abdominal trauma BV (bacterial vaginosis) Depressive disorder Heterozygous MTHFR mutation C677T History of miscarriage 02-12-2018, 5 wks 1. Maternal varicella, non-immune MRSA (methicillin resistant Staphylococcus aureus) Nephrolithiasis Patient denies significant medical history PCOS (polycystic ovarian syndrome) Polyhydramnios affecting UTI (urinary tract infection) Vaginal delivery 12-21-2015, 40 wks 1. 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 HEAD: Normocephalic, atraumatic. EYES: PERRLA and EOMI. ENT: Nares clear, no rhinorrhea or epistaxis. Mucous membranes moist. Oropharynx without tonsillar hypertrophy exudate or other lesions. NECK: Supple. No adenopathy or masses. CHEST: No respiratory distress. Clear to auscultation. No wheezes rales or rhonchi HEART: Regular rate and rhythm. No murmur heard. Normal peripheral pulses. ABDOMEN: Soft, nontender, nondistended, normal active bowel sounds. Negative Hussein sign. Negative flank tenderness bowel MSK: Normal range of motion. No edema. SKIN: Warm, dry, no rash. NEURO: Alert and oriented x4. No focal deficits. PSYCH: Normal mood and affect. Course Vital Signs Vital signs: Vital Signs Temperature 97.6 F 04/12/24 20:28 Pulse Rate 85 04/12/24 20:28 Respiratory Rate 16 04/12/24 20:28 Blood Pressure 142/86 H 04/12/24 20:28 Pulse Oximetry 100 04/12/24 20:28 Oxygen Delivery Room Air 04/12/24 20:28 Temperature 97.6 F 04/12/24 20:28 Pulse Rate 79 04/13/24 01:32 Respiratory Rate 15 04/13/24 01:32 Blood Pressure 120/78 04/13/24 01:32 Pulse Oximetry 100 04/13/24 01:32 Oxygen Delivery Room Air 04/12/24 20:28 MDM - Abdominal Pain MDM Narrative Medical decision making narrative: This is a 24-year-old female who presents to the ED for chief complaint of right upper quadrant pain. Recent diagnosis of biliary colic 2 days ago and patient has been eating multiple fatty foods this weekend. Vitals are normal. Exam is benign. Negative Hussein sign. Bedside ultrasound does not reveal gallbladder inflammation. Lab work is grossly unremarkable with a normal white count, normal biliary labs and CMP. UA unremarkable as well. Patient will be discharged in stable condition. Supportive measures discussed and return precautions given. Patient is understanding and agreeable with plan for discharge with PCP follow-up. Lab Data 04/12/24 20:41 04/12/24 20:41 Labs: Lab Results 04/12/24 04/12/24 04/13/24 Range/Units 20:41 20:49 01:15 WBC 8.1 (4.5-10.0) K/mm3 RBC 4.56 (4.2-5.4) M/mm3 Hgb 13.2 (12.0-15.0) g/dL Hct 39.7 (37.0-47.0) % MCV 87.1 (80-100) fl MCH 28.9 (26-34) pg MCHC 33.2 (32-36) g/dl RDW 12.4 (11.5-14.5) % Plt Count 191 (150-375) k/mm3 MPV 11.4 H (7.4-10.4) fl Immature Gran % (Auto) 0.2 (0-0.5) % Neut % (Auto) 60.3 (45.5-73.1) % Lymph % (Auto) 31.5 (18.3-44.2) % [place] % (Auto) 5.8 (2.6-8.5) % Eos % (Auto) 1.6 (0-4.4) % Baso % (Auto) 0.6 (0.2-1.2) % Lymph # (Auto) 2.54 (0.9-3.2) K/mm3 [place] # (Auto) 0.5 (0.1-0.6) K/mm3 Eos # (Auto) 0.1 (0-0.3) K/mm3 Baso # (Auto) 0.1 (0.0-0.1) K/mm3 Abs Immat Gran (auto) 0.02 (0.00-0.031) K/mm3 Absolute Neuts (auto) 4.9 (1.3-6.7) K/mm3 Absolute Nucleated RBC 0.000 (0.0-0.012) K/mm3 Nucleated RBC % 0.0 (0.0-0.2) % Sodium 141 (137-145) mmol/L Potassium 3.8 (3.4-5.0) mmol/L Chloride 105 (98-107) mmol/L Carbon Dioxide 25 (22-30) mmol/L Anion Gap 11 (4-12) mmol/L BUN 14 (7-17) mg/dL Creatinine 0.59 L (0.7-1.0) mg/dL Estim Creat Clear Calc 129 ml/min Estimated GFR > 60 (59 - ) Glucose 94 (65-110) mg/dL Calcium 9.0 (8.4-10.2) mg/dL Total Bilirubin 0.6 (0.2-1.3) mg/dL AST 27 (14-36) U/L ALT 27 (6-35) U/L Alkaline Phosphatase 57 (38-126) U/L Total Protein 8.0 (6.3-8.2) g/dL Albumin 4.5 (3.5-5.1) g/dL Lipase 59 (23-300) U/L Urine Color Yellow (Yellow) Urine Appearance Clear (Clear) Urine pH 8.0 (5.0-9.0) Ur Specific [place] 1.020 (1.001-1.035) Urine Protein Negative (Negative) mg/dL Urine Glucose (UA) Negative (Negative) mg/dL Urine Ketones Negative (Negative) mg/dL Ur Blood (Man) Negative (Negative) Urine Nitrate Negative (Negative) Urine Bilirubin Negative (Negative) Urine Urobilinogen 1.0 (<2.0) mg/dL Leukocyte Esterase Rfl Negative (Negative) GWENDOLYN/UL POC Urine HCG, Qual Negative (Negative) Discharge Plan Discharge Clinical Impression: Biliary colic Patient Disposition: Home, Self-Care Condition: Stable Instructions: Antibiotic Form, Biliary Colic (ED), Low Fat Diet (ED), Abdominal Pain (ED) Additional Instructions: Please follow low-fat diet as instructed in the paperwork. Continue follow-up with general surgery on this issue. If you have any new or worsening symptoms please return to the ER for further evaluation. Patient Language: Sinhala Prescriptions: New ondansetron 4 mg tablet,disintegrating 4 mg PO Q8H 4 Days Qty: 12 0RF No Action erythromycin 5 mg/gram (0.5 %) ointment 1 applic LEFT EYE DAILY Qty: 3.5 0RF oxycodone-acetaminophen [Endocet] 5-325 mg tablet 1 tablet PO Q12H PRN (Reason: pain) Qty: 6 0RF ondansetron 4 mg tablet,disintegrating 4 mg PO Q8H PRN (Reason: nausea and vomiting) Qty: 15 0RF hydroxyzine HCl 25 mg tablet 25 mg PO QID PRN (Reason: itching) Qty: 14 0RF methylprednisolone [Medrol (Filippo)] 4 mg tablets,dose pack See Rx Instructions PO .COMPLEX Qty: 21 0RF Rx Instructions: orally per package directions acetaminophen 500 mg tablet 1,000 mg PO TID PRN (Reason: samantha) 7 Days Qty: 42 0RF ibuprofen 800 mg tablet 800 mg PO TID PRN (Reason: pain) 7 Days Qty: 21 0RF ondansetron 4 mg tablet,disintegrating 4 mg PO Q8H PRN (Reason: nausea and vomiting) Qty: 30 0RF Follow-up/Referrals: PHYSICIAN,ASSISTANT CHIEF ENGINEER [Primary Care Provider] - Time of Disposition: 01:08
[2024-04-13] MEDS: ONDANSETRON INJ 4 MG/2 ML VIAL IV PUSH (00:54)
[2024-04-13] MEDS: HYDROmorphone HCL INJ (*CRX) 1 MG/ML SYR 0.5 MG IV PUSH (00:55)
[2024-04-13 01:15] VITALS: BP 118/72; PULSE 89; RESP 15; O2SAT 100
[2024-04-13 01:16] LABS: BEDSIDEPREGUCG Negative (Negative)
[2024-04-13 01:32] VITALS: BP 120/78; PULSE 79; RESP 15; O2SAT 100
== END 2024-04-13 01:33 | disposition home or self-care (01) ==
PROVIDERS: Emergency Medicine; Emergency Provider Physician Assistant
DX: K80.50 Calculus of bile duct without cholangitis or cholecystitis without obstruction (principal); F32.A Depression, unspecified; Z87.440 Personal history of urinary (tract) infections
CPT/HCPCS: 36415; 80053; 81003; 81025; 83690; 85025; 96374; 96375; 99284; J1171; J2405

== ENCOUNTER 2024-08-04 18:01 | Emergency (ER) | payer OTHER, MEDICAID, SELFPAY ==
--- NOTE | ~2024-08-04 | CT_ITS ---
CT brain wo con Ordering provider: Kelly Rushing PA-C History: 24 years Female with . syncope this morning . Comparison: None. Technique: CT of the head without contrast. Radiation reduction technique utilized.The dose-length product was 605.33 mGy-cm. FINDINGS: BRAIN PARENCHYMA AND CSF SPACES: No midline shift, mass effect or hemorrhage. The brain parenchyma a nd CSF spaces are otherwise normal. VISUALIZED PARANASAL SINUSES: Well aerated. MASTOIDS: Well aerated. BONES: The bones appear intact. SOFT TISSUES: Visualized nasopharynx is normal. Superficial soft tissues are normal. IMPRESSION: No acute intracranial findings. Reviewed, dictated and finalized at location A.
--- NOTE | ~2024-08-04 | CT_ITS ---
CT cervical spine wo con Ordering provider: Kelly Rushing PA-C History: . syncope, [place] . Comparison: None. Technique: CT of the cervical spine was performed without contrast. Sagittal and coronal reformatted images were also obtained and reviewed. Automated exposure control and iterative reconstruction don hnique were employed. The dose-length product was 457.29 mGy-cm. FINDINGS: VERTEBRAE: No subluxation or acute fracture. The occipital condyles are intact. Reversal of lordosis. DISC SPACES: Normal. PARASPINOUS SOFT TISSUES: Normal. IMPRESSION: No acute osseous abnormality cervical spine. Reviewed, dictated and finalized at location A.
[2024-08-04 18:09] VITALS: BP 141/83; PULSE 97; RESP 16; TEMP 36.8; O2SAT 97
--- OUTSIDE RECORDS SUMMARY | 2024-08-04 18:21 | XMS_ITS | Data Portability ---
Author Organization [facility] Address [address] [place] [address] Assessment No assessment recorded. Plan of Treatment Reminders Order Date Submit Date Provider Last Modified By Organization Details Last Modified Time Details Appointments None recorded. Lab urinalysi s, dipstick 2019 020 [email or web address] 1 In-Office Order, Internal Use Only DO Not Attach Compendium DO Not Attach Compendium, Do Not Delete/merge, [id number] 0 12:59:51 urinalysi s, dipstick 2019 020 mwasserman In-Office Order, Internal Use Only DO Not Attach Compendium DO Not Attach Compendium, Do Not Delete/merge, [id number] 0 14:05:25 urinalysi s, dipstick 2019 020 mwasserman In-Office Order, Internal Use Only DO Not Attach Compendium DO Not Attach Compendium, Do Not Delete/merge, [id number] 0 17:03:31 urinalysi s, dipstick 2019 020 mwasserman In-Office Order, Internal Use Only DO Not Attach Compendium DO Not Attach Compendium, Do Not Delete/merge, [id number] 0 11:55:19 Referral None recorded. Procedures None recorded. Surgeries None recorded. Imaging US, obstetric , 3rd trimester 2019 020 [facility], [address] [place] [address] [address], [place], [address], 0 17:08:44 Medication Orders cyanocoba kathy (vit B-12) 1,000 mcg/mL injection solution 2019 020 [id number], [address], [place], [address], 0 14:05:25 Patient TargetsNo targets recorded. Patient Instructions Encounter Date Encounter Id Patient Instructions Last Modified By Organization Details Last Modified Time 10/20/2019 [id number] bacterial vaginosis: care instructions mwasserman Not available 10/20/2019 11:55:19 learning about mood disorders mwasserman Not available 10/20/2019 11:55:19 10/26/2019 [id number] MRSA: care instructions mwasserman Not available 10/26/2019 12:05:53 learning about mood disorders mwasserman Not available 10/26/2019 12:05:53 11/02/2019 [id number] learning about mood disorders mwasserman Not available 11/02/2019 14:05:25 11/08/2019 [id number] MRSA: care instructions mwasserman Not available 11/08/2019 15:51:38 learning about mood disorders mwasserman Not available 11/08/2019 15:51:38 Reason for Referral None Reported. Results Created Date Observation Date Name Description Value Unit Range Abnormal Flag Note LastModifiedBy Organization Detail LastModifiedTime 11/15/19 20 11/15/2019 urina lysis , dipst ick Leukocytes Small Not Available In-Offi ce Order Internal Use Only DO Not Attach Compendium DO Not Attach Compendium, Do Not Delete/merge, [id number] 11/15/2019 10:35:13 11/15/1911/15/2019 urina lysis , dipst ick Nitrite negati ve Not Available In-Office Order Internal Use Only DO Not Attach Compendium DO Not Attach Compendium, Do Not Delete/merge, [id number] 11/15/2019 10:35:13 11/15/1911/15/2019 urina lysis , dipst ick Urobilinogen 1 Not Available In-Of fice Order Internal Use Only DO Not Attach Compendium DO Not Attach Compendium, Do Not Delete/merge, [id number] 11/15/2019 10:35:13 11/15/19 20 11/15/2019 urina lysis , dipst ick Protein Trace Not Available In-Office Order Internal Use Only DO Not Attach Compendium DO Not Attach Compendium, Do Not Delete/merge, 11/15/2019 10:35:13 11/15/19 20 11/15/2019 urina lysis , dipst ick pH 7.0 Not Available In-Office Order Internal Use Only DO Not Attach Compendium DO Not Attach Compendium, Do Not Delete/merge, 11/15/2019 10:35:13 11/15/19 20 11/15/2019 urina lysis , dipst ick Blood Negati ve Not Available In-Office Order Internal Use Only DO Not Attach Compendium DO Not Attach Compendium, Do Not Delete/merge, 11/15/2019 10:35:13 11/15/19 20 11/15/2019 urina lysis , dipst ick Specific Richton 1.025 Not Available In-Off ice Order Internal Use Only DO Not Attach Compendium DO Not Attach Compendium, Do Not Delete/merge, 11/15/2019 10:35:13 11/15/19 20 11/15/2019 urina lysis , dipst ick Ketone Negati ve Not Available In-Office Order Internal Use Only DO Not Attach Compendium DO Not Attach Compendium, Do Not Delete/merge, 11/15/2019 10:35:13 11/15/19 20 11/15/2019 urina lysis , dipst ick Bilirubin Negati ve Not Available In-Office Order Internal Use Only DO Not Attach Compendium DO Not Attach Compendium, Do Not Delete/merge, 11/15/2019 10:35:13 11/15/19 20 11/15/2019 urina lysis , dipst ick Glucose Negati ve Not Available In-Office Order Internal Use Only DO Not Attach Compendium DO Not Attach Compendium, Do Not Delete/merge, 11/15/2019 10:35:13 11/01/19 20 11/02/2019 urina lysis , dipst ick Leukocytes Small Not Available In-Offi ce Order Internal Use Only DO Not Attach Compendium DO Not Attach Compendium, Do Not Delete/merge, 11/01/2019 22:36:05 11/01/19 20 11/02/2019 urina lysis , dipst ick Nitrite negati ve Not Available In-Office Order Internal Use Only DO Not Attach Compendium DO Not Attach Compendium, Do Not Delete/merge, 11/01/2019 22:36:05 11/01/19 20 11/02/2019 urina lysis , dipst ick Urobilinogen 1 Not Available In-Of fice Order Internal Use Only DO Not Attach Compendium DO Not Attach Compendium, Do Not Delete/merge, 11/01/2019 22:36:05 11/01/19 20 11/02/2019 urina lysis , dipst ick Protein 30 Not Available In-Office Order Internal Use Only DO Not Attach Compendium DO Not Attach Compendium, Do Not Delete/merge, 11/01/2019 22:36:05 11/01/19 20 11/02/2019 urina lysis , dipst ick pH 6.5 Not Available In-Office Order Internal Use Only DO Not Attach Compendium DO Not Attach Compendium, Do Not Delete/merge, 11/01/2019 22:36:05 11/01/19 20 11/02/2019 urina lysis , dipst ick Blood Negati ve Not Available In-Office Order Internal Use Only DO Not Attach Compendium DO Not Attach Compendium, Do Not Delete/merge, 11/01/2019 22:36:05 11/01/19 20 11/02/2019 urina lysis , dipst ick Specific Richton 1.025 Not Available In-Off ice Order Internal Use Only DO Not Attach Compendium DO Not Attach Compendium, Do Not Delete/merge, 11/01/2019 22:36:05 11/01/19 20 11/02/2019 urina lysis , dipst ick Ketone Negati ve Not Available In-Office Order Internal Use Only DO Not Attach Compendium DO Not Attach Compendium, Do Not Delete/merge, 11/01/2019 22:36:05 11/01/19 20 11/02/2019 urina lysis , dipst ick Bilirubin Negati ve Not Available In-Office Order Internal Use Only DO Not Attach Compendium DO Not Attach Compendium, Do Not Delete/merge, [id number] 11/01/2019 22:36:05 11/01/19 20 11/02/2019 urina lysis , dipst ick Glucose Negati ve Not Available In-Office Order Internal Use Only DO Not Attach Compendium DO Not Attach Compendium, Do Not Delete/merge, [id number] 11/01/2019 22:36:05 10/26/19 20 10/26/2019 urina lysis , dipst ick Leukocytes Small Not Available In-Offi ce Order Internal Use Only DO Not Attach Compendium DO Not Attach Compendium, Do Not Delete/merge, [id number] 10/26/2019 11:07:08 10/26/19 20 10/26/2019 urina lysis , dipst ick Nitrite negati ve Not Available In-Office Order Internal Use Only DO Not Attach Compendium DO Not Attach Compendium, Do Not Delete/merge, 10/26/2019 11:07:08 10/26/19 20 10/26/2019 urina lysis , dipst ick Urobilinogen 1 Not Available In-Of fice Order Internal Use Only DO Not Attach Compendium DO Not Attach Compendium, Do Not Delete/merge, 10/26/2019 11:07:08 10/26/19 20 10/26/2019 urina lysis , dipst ick Protein 30 Not Available In-Office Order Internal Use Only DO Not Attach Compendium DO Not Attach Compendium, Do Not Delete/merge, 10/26/2019 11:07:08 10/26/19 20 10/26/2019 urina lysis , dipst ick pH 6.5 Not Available In-Office Order Internal Use Only DO Not Attach Compendium DO Not Attach Compendium, Do Not Delete/merge, 10/26/2019 11:07:08 10/26/19 20 10/26/2019 urina lysis , dipst ick Blood Negati ve Not Available In-Office Order Internal Use Only DO Not Attach Compendium DO Not Attach Compendium, Do Not Delete/merge, 10/26/2019 11:07:08 10/26/19 20 10/26/2019 urina lysis , dipst ick Specific Richton 1.030 Not Available In-Off ice Order Internal Use Only DO Not Attach Compendium DO Not Attach Compendium, Do Not Delete/merge, [id number] 10/26/2019 11:07:08 10/26/19 20 10/26/2019 urina lysis , dipst ick Ketone Negati ve Not Available In-Office Order Internal Use Only DO Not Attach Compendium DO Not Attach Compendium, Do Not Delete/merge, [id number] 10/26/2019 11:07:08 10/26/19 20 10/26/2019 urina lysis , dipst ick Bilirubin Small Not Available In-Offic e Order Internal Use Only DO Not Attach Compendium DO Not Attach Compendium, Do Not Delete/merge, [id number] 10/26/2019 11:07:08 10/26/19 20 10/26/2019 urina lysis , dipst ick Glucose Negati ve Not Available In-Office Order Internal Use Only DO Not Attach Compendium DO Not Attach Compendium, Do Not Delete/merge, [id number] 10/26/2019 11:07:08 10/20/19 20 10/20/2019 urina lysis , dipst ick Leukocytes Modera te Not Available In-Office Order Internal Use Only DO Not Attach Compendium DO Not Attach Compendium, Do Not Delete/merge, [id number] 10/20/2019 10:36:27 10/20/19 20 10/20/2019 urina lysis , dipst ick Nitrite negati ve Not Available In-Office Order Internal Use Only DO Not Attach Compendium DO Not Attach Compendium, Do Not Delete/merge, [id number] 10/20/2019 10:36:27 10/20/19 20 10/20/2019 urina lysis , dipst ick Urobilinogen .2 Not Available In-Of fice Order Internal Use Only DO Not Attach Compendium DO Not Attach Compendium, Do Not Delete/merge, [id number] 10/20/2019 10:36:27 10/20/19 20 10/20/2019 urina lysis , dipst ick Protein Negati ve Not Available In-Office Order Internal Use Only DO Not Attach Compendium DO Not Attach Compendium, Do Not Delete/merge, [id number] 10/20/2019 10:36:27 10/20/19 20 10/20/2019 urina lysis , dipst ick pH 6.5 Not Available In-Office Order Internal Use Only DO Not Attach Compendium DO Not Attach Compendium, Do Not Delete/merge, 10/20/2019 10:36:27 10/20/19 20 10/20/2019 urina lysis , dipst ick Blood Negati ve Not Available In-Office Order Internal Use Only DO Not Attach Compendium DO Not Attach Compendium, Do Not Delete/merge, 10/20/2019 10:36:27 10/20/19 20 10/20/2019 urina lysis , dipst ick Specific Richton 1.030 Not Available In-Off ice Order Internal Use Only DO Not Attach Compendium DO Not Attach Compendium, Do Not Delete/merge, 10/20/2019 10:36:27 10/20/19 20 10/20/2019 urina lysis , dipst ick Ketone Negati ve Not Available In-Office Order Internal Use Only DO Not Attach Compendium DO Not Attach Compendium, Do Not Delete/merge, 10/20/2019 10:36:27 10/20/19 20 10/20/2019 urina lysis , dipst ick Bilirubin Negati ve Not Available In-Office Order Internal Use Only DO Not Attach Compendium DO Not Attach Compendium, Do Not Delete/merge, 10/20/2019 10:36:27 10/20/19 20 10/20/2019 urina lysis , dipst ick Glucose Negati ve Not Available In-Office Order Internal Use Only DO Not Attach Compendium DO Not Attach Compendium, Do Not Delete/merge, [id number] 10/20/2019 10:36:27 10/13/19 20 10/13/2019 urina lysis , dipst ick Leukocytes Small Not Available In-Offi ce Order Internal Use Only DO Not Attach Compendium DO Not Attach Compendium, Do Not Delete/merge, 10/13/2019 10:42:16 10/13/19 20 10/13/2019 urina lysis , dipst ick Nitrite negati ve Not Available In-Office Order Internal Use Only DO Not Attach Compendium DO Not Attach Compendium, Do Not Delete/merge, 10/13/2019 10:42:10/13/19 20 10/13/2019 urina lysis , dipst ick Urobilinogen .2 Not Available In-Of fice Order Internal Use Only DO Not Attach Compendium DO Not Attach Compendium, Do Not Delete/merge, 10/13/2019 10:42:16 10/13/19 20 10/13/2019 urina lysis , dipst ick Protein Negati ve Not Available In-Office Order Internal Use Only DO Not Attach Compendium DO Not Attach Compendium, Do Not Delete/merge, 10/13/2019 10:42:10/13/19 20 10/13/2019 urina lysis , dipst ick pH 6.5 Not Available In-Office Order Internal Use Only DO Not Attach Compendium DO Not Attach Compendium, Do Not Delete/merge, 10/13/2019 10:42:10/13/19 20 10/13/2019 urina lysis , dipst ick Blood Negati ve Not Available In-Office Order Internal Use Only DO Not Attach Compendium DO Not Attach Compendium, Do Not Delete/merge, 10/13/2019 10:42:16 10/13/19 20 10/13/2019 urina lysis , dipst ick Specific Richton 1.025 Not Available In-Off ice Order Internal Use Only DO Not Attach Compendium DO Not Attach Compendium, Do Not Delete/merge, 10/13/2019 10:42:10/13/19 20 10/13/2019 urina lysis , dipst ick Ketone Negati ve Not Available In-Office Order Internal Use Only DO Not Attach Compendium DO Not Attach Compendium, Do Not Delete/merge, 10/13/2019 10:42:10/13/19 20 10/13/2019 urina lysis , dipst ick Bilirubin Negati ve Not Available In-Office Order Internal Use Only DO Not Attach Compendium DO Not Attach Compendium, Do Not Delete/merge, 10/13/2019 10:42:16 10/13/19 20 10/13/2019 urina lysis , dipst ick Glucose Negati ve Not Available In-Office Order Internal Use Only DO Not Attach Compendium DO Not Attach Compendium, Do Not Delete/merge, [id number] 10/13/2019 10:42:16 10/05/19 20 10/05/2019 urina lysis , dipst ick Leukocytes Small Not Available In-Offi ce Order Internal Use Only DO Not Attach Compendium DO Not Attach Compendium, Do Not Delete/merge, 10/05/2019 11:04:18 10/05/19 20 10/05/2019 urina lysis , dipst ick Nitrite negati ve Not Available In-Office Order Internal Use Only DO Not Attach Compendium DO Not Attach Compendium, Do Not Delete/merge, 10/05/2019 11:04:18 10/05/19 20 10/05/2019 urina lysis , dipst ick Urobilinogen .2 Not Available In-Of fice Order Internal Use Only DO Not Attach Compendium DO Not Attach Compendium, Do Not Delete/merge, 10/05/2019 11:04:18 10/05/19 20 10/05/2019 urina lysis , dipst ick Protein Negati ve Not Available In-Office Order Internal Use Only DO Not Attach Compendium DO Not Attach Compendium, Do Not Delete/merge, 10/05/2019 11:04:18 10/05/19 20 10/05/2019 urina lysis , dipst ick pH 7.0 Not Available In-Office Order Internal Use Only DO Not Attach Compendium DO Not Attach Compendium, Do Not Delete/merge, 10/05/2019 11:04:18 10/05/19 20 10/05/2019 urina lysis , dipst ick Blood Negati ve Not Available In-Office Order Internal Use Only DO Not Attach Compendium DO Not Attach Compendium, Do Not Delete/merge, 10/05/2019 11:04:18 10/05/19 20 10/05/2019 urina lysis , dipst ick Specific Richton 1.025 Not Available In-Off ice Order Internal Use Only DO Not Attach Compendium DO Not Attach Compendium, Do Not Delete/merge, 10/05/2019 11:04:18 10/05/19 20 10/05/2019 urina lysis , dipst ick Ketone Negati ve Not Available In-Office Order Internal Use Only DO Not Attach Compendium DO Not Attach Compendium, Do Not Delete/merge, [id number] 10/05/2019 11:04:18 10/05/19 20 10/05/2019 urina lysis , dipst ick Bilirubin Negati ve Not Available In-Office Order Internal Use Only DO Not Attach Compendium DO Not Attach Compendium, Do Not Delete/merge, [id number] 10/05/2019 11:04:18 10/05/19 20 10/05/2019 urina lysis , dipst ick Glucose Negati ve Not Available In-Office Order Internal Use Only DO Not Attach Compendium DO Not Attach Compendium, Do Not Delete/merge, [id number] 10/05/2019 11:04:18 09/28/1909/29/2019 fibro necti n fibronectin NEGATI VE negati ve Posit crystal - Indic ates the prese nce of secre tions that will resul t in deliv jose in less than or equal to 7 - 14 days from colle ction in sympt omati c women . Negat crystal - Indic ates the absen ce of secre tions that will resul t in deliv jose in less than or equal to 7 - 14 days from colle ction in sympt omati c women . Clara kellogg ate - The speci men does not meet inter nal accep tance on the initi al and repea t testi ng. The Rapid fFn resul t shoul d not be inter prete d as absol archana evide nce . for the prese nce or absen ce of a proce ss that will resul t in deliv jose in less than or equal to 7 to 14 days from speci men colle ction in sympt omati c women or deliv ey in less than or equal to 34 weeks , 6 days in asymp tomat ic women evalu ated betwe en 22 weeks , 0 days and 30 weeks , 6 days of gesta tion. A posit crystal fFN resul t may be obser pancho for patie nts who have exper ience d cervi lizzie disru ption cause d by, but not limit ed to, event s such as sexua l inter cours e, digit al cervi lizzie exami natio n, or vagin al probe ultra sound . The Rapid fFN resul t rowena d alway s be used in conju nctio n with infor matio n avail able from the clini lizzie evalu ation of the patie nt and other diagn ostic proce dures such as cervi lizzie exami natio n, cervi lizzie mirco biolo gical cultu re, asses sment of uteri ne activ ity, and evalu ation of other risk facto rs. Patie nts takin g S-annette nosyl -meth ionin e may show false ly eleva jessee level s of Homoc ystei ne. Patie nts takin g metho trexa te nicot inic acid, theop hylli ne, nitro us oxide , or L-dop a can have false ly eleva jessee Homoc ystei ne level s. Heter ophil ic antib odies in human serum can react with reage nt immun oglob ulins , inter ferin g with in vitro immun oassa ys. Patie nts routi cam expos ed to anima ls or to anima l serum produ cts can be prone to this inter feren ce and anoma lous value s may be obser pancho. Addit ional infor matio n may be requi red for diagn osis. Not Available [facility] [address] [place] [address] , [place], [address], 09/29/2019 16:11:03 09/28/19 20 09/30/2019 bacte rial vagin osis + vagin itis panel , vagin al chlamydia trachomatis, VY NEGATI VE negati ve Not Available [facility] ([facility]) [address] [place], [address], 10/02/2019 14:09:08 09/28/19 20 09/30/2019 bacte rial vagin osis + vagin itis panel , vagin al neisseria gonorrhoeae, VY NEGATI VE negati ve Not Available [facility] ([facility]) [address] [place], [address], 10/02/2019 14:09:08 09/28/19 20 10/01/2019 bacte rial vagin osis + vagin itis panel , vagin al atopobium vaginae LOW - 0 score Not Available [facility] ([facility]) [address] [place], [address], 10/02/2019 14:09:08 09/28/19 20 10/01/2019 bacte rial vagin osis + vagin itis panel , vagin al bvab 2 MODERA TE - 1 score Not Available [facility] ([facility]) [address] [facility], [place], [address], 10/02/2019 14:09:08 09/28/19 20 10/01/2019 bacte rial vagin osis + vagin itis panel , vagin al megasphaera 1 HIGH - 2 score abnormal Calcu late total score by giovanny gomez the 3 indiv idual bacte rial vagin osis (BV) marke r score s toget her. Total score is inter prete d as follo ws: Total score 0-1: Indic ates the absen ce of BV. Total score 2: Indet ermin ate for BV. Addit ional clini lizzie data shoul d be evalu ated to estab derick a diagn osis. Total score 3-6: Indic ates the prese nce of BV. This test was devel oped and its perfo rmanc e bobby cteri stics deter mined by [facility]. It has not been clear ed or appro pancho by the Food and Drug Admin istra tion. The FDA has deter mined that such clear ance or appro vimal is not neces isauro. Not Available [facility] ([facility]) [address] [facility], [place], [address], 10/02/2019 14:09:08 09/28/1910/01/2019 bacte rial vagin osis + vagin itis panel , vagin al john albicans, VY NEGATI VE negati ve Not Available [facility] ([facility]) [address] [facility], [place], [address], 10/02/2019 14:09:08 09/28/19 20 10/01/2019 bacte rial vagin osis + vagin itis panel , vagin al john glabrata, VY NEGATI VE negati ve Not Available [facility] ([facility]) [address] [facility], [place], [address], 10/02/2019 14:09:08 09/28/19 20 10/01/2019 bacte rial vagin osis + vagin itis panel , vagin al trich vag by VY NEGATI VE negati ve Not Available [facility] ([facility]) [address] [facility], [place], [address], 10/02/2019 14:09:08 09/28/19 20 10/02/2019 strep tococ cus group B, cultu re, unspe cifie d speci men strep gp B culture NEGATI VE negati ve Cente rs for Disea se Contr ol and Preve ntion (CDC) and Ameri can Congr ess of Obste trici ans and Gynec ologi sts (ACOG ) guide lines for preve ntion of perin atal group B strep tococ lizzie (GBS) disea se speci fy co-co llect ion of a vagin al and recta l swab speci men to maxim ize sensi tivit y of GBS detec tion. Per the CDC and ACOG, swabb ing both the lower vagin a and rectu m subst antia lly incre ases the yield of detec tion ailyn red with sampl ing the vagin a alone . Penic illin G, ampic illin , or cefaz summer are indic ated for intra partu m proph ylaxi s of perin atal GBS colon izati on. Refle x susce ptibi lity testi ng shoul d be perfo rmed prior to use of clind amyci n only on GBS isola jhonatan from penic illin -christoph rgic women who are consi dered a high risk for anaph ylaxi s. Treat ment with vanco mycin witho ut addit ional testi ng is warra nted if resis tance to clind amyci n is noted . Not Available [facility] ([facility]) [address], [place], [address], 10/02/2019 14:09:09 09/28/19 20 09/28/2019 urina lysis , dipst ick Leukocytes Small Not Available In-Offi ce Order Internal Use Only DO Not Attach Compendium DO Not Attach Compendium, Do Not Delete/merge, 09/28/2019 15:05:09/28/19 20 09/28/2019 urina lysis , dipst ick Nitrite negati ve Not Available In-Office Order Internal Use Only DO Not Attach Compendium DO Not Attach Compendium, Do Not Delete/merge, 09/28/2019 15:05:09/28/19 20 09/28/2019 urina lysis , dipst ick Urobilinogen 1 Not Available In-Of fice Order Internal Use Only DO Not Attach Compendium DO Not Attach Compendium, Do Not Delete/merge, 09/28/2019 15:05:09/28/19 20 09/28/2019 urina lysis , dipst ick Protein Negati ve Not Available In-Office Order Internal Use Only DO Not Attach Compendium DO Not Attach Compendium, Do Not Delete/merge, 09/28/2019 15:05:09/28/19 20 09/28/2019 urina lysis , dipst ick pH 7.0 Not Available In-Office Order Internal Use Only DO Not Attach Compendium DO Not Attach Compendium, Do Not Delete/merge, 09/28/2019 15:05:31 09/28/19 20 09/28/2019 urina lysis , dipst ick Blood Negati ve Not Available In-Office Order Internal Use Only DO Not Attach Compendium DO Not Attach Compendium, Do Not Delete/merge, 09/28/2019 15:05:31 09/28/19 20 09/28/2019 urina lysis , dipst ick Specific Richton 1.025 Not Available In-Off ice Order Internal Use Only DO Not Attach Compendium DO Not Attach Compendium, Do Not Delete/merge, 09/28/2019 15:05:31 09/28/19 20 09/28/2019 urina lysis , dipst ick Ketone Negati ve Not Available In-Office Order Internal Use Only DO Not Attach Compendium DO Not Attach Compendium, Do Not Delete/merge, [id number] 09/28/2019 15:05:31 09/28/19 20 09/28/2019 urina lysis , dipst ick Bilirubin Negati ve Not Available In-Office Order Internal Use Only DO Not Attach Compendium DO Not Attach Compendium, Do Not Delete/merge, [id number] 09/28/2019 15:05:31 09/28/19 20 09/28/2019 urina lysis , dipst ick Glucose Negati ve Not Available In-Office Order Internal Use Only DO Not Attach Compendium DO Not Attach Compendium, Do Not Delete/merge, [id number] 09/28/2019 15:05:31 10/13/19 20 10/13/2019 fibro necti n fibronectin NEGATI VE negati ve Posit crystal - Indic ates the prese nce of secre tions that will resul t in deliv jose in less than or equal to 7 - 14 days from colle ction in sympt omati c women . Negat crystal - Indic ates the absen ce of secre tions that will resul t in deliv jose in less than or equal to 7 - 14 days from colle ction in sympt omati c women . Clara kellogg ate - The speci men does not meet inter nal accep tance on the initi al and repea t testi ng. The Rapid fFn resul t shoul d not be inter prete d as absol archana evide nce . for the prese nce or absen ce of a proce ss that will resul t in deliv jose in less than or equal to 7 to 14 days from speci men colle ction in sympt omati c women or deliv ey in less than or equal to 34 weeks , 6 days in asymp tomat ic women evalu ated betwe en 22 weeks , 0 days and 30 weeks , 6 days of gesta tion. A posit crystal fFN resul t may be obser pancho for patie nts who have exper ience d cervi lizzie disru ption cause d by, but not limit ed to, event s such as sexua l inter cours e, digit al cervi lizzie exami natio n, or vagin al probe ultra sound . The Rapid fFN resul t rowena d altrista s be used in conju nctio n with infor matio n avail able from the clini lizzie evalu ation of the patie nt and other diagn ostic proce dures such as cervi lizzie exami natio n, cervi lizzie mirco biolo gical cultu re, asses sment of uteri ne activ ity, and evalu ation of other risk facto rs. Patie nts takin g S-annette nosyl -meth ionin e may show false ly eleva jessee level s of Homoc ystei ne. Patie nts takin g metho trexa te nicot inic acid, theop hylli ne, nitro us oxide , or L-dop a can have false ly eleva jessee Homoc ystei ne level s. Heter ophil ic antib odies in human serum can react with reage nt immun oglob ulins , inter ferin g with in vitro immun oassa ys. Patie nts routi cam expos ed to anima ls or to anima l serum produ cts can be prone to this inter feren ce and anoma lous value s may be obser pancho. Addit ional infor matio n may be requi red for diagn osis. Not Available [facility] [address], [place], [address], 10/13/2019 20:08:04 09/21/19 20 09/20/2019 US, obste tric, bioph ysica l profi le + non-s tress test No observ ation record ed. louis Not Available 09/27 19:00:23 09/22/19 20 09/20/2019 US, obste tric, 3rd trime ster No observ ation record ed. [facility] ([facility]) [address], [place], [address], 09/28/2019 19:00:23 10/04/19 20 10/01/2019 non-s tress test No observ ation record ed. louis Not Available 10/04 12:47:13 10/07/19 20 09/28/2019 US, obste tric, bioph ysica l profi le + non-s tress test No observ ation record ed. [place] [address] [facility] [address], [place], [address], 10/13/2019 12:47:14 11/15/19 20 11/08/2019 US, obste tric, 3rd trime ster No observ ation record ed. [facility] [address] [facility] [address], [place], [address], 11/15/2019 17:08:45 Result Notes None recorded. 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 ALVINA Becker, [place] [facility] 0 15:47:49 Past history of miscarria ge 586057878 Active 2018 ALVINA [place] [facility] 0 15:47:49 Bacterial vaginosis 952380523 Active 2018 Todd villarreal [place] - [facility] 9 10:23:22 86285824 Completed 201909/15/2019 Todd [place]real [place] [facility] 0 12:03:01 Subchorio binh hematoma 206072339 Active 2019 Ileana Gonzalez [place] [facility] 0 15:47:49 Subchorio binh hematoma 736210444 Completed 201909/15/2019 [place] [facility] 0 12:02:57 Abnormal progester one 470491366 Active 2019 Ileana Gonzalez [place] [facility] 0 15:47:49 Abnormal progester one 461934737 Active 2019 Ileana Gonzalez [place] [facility] 0 15:47:49 Past history of miscarria ge 395301732 Active 2018 Ileana Gonzalez [place] [facility] 0 15:47:49 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 892930447242 102 Active 2018 Ileana Gonzalez [place] [facility] 0 15:47:49 Body mass index 30+ - obesity 833328925 Active 2017 Todd [place] [facility] 0 14:42:30 Varicella non-immun e 685533751 Active 2019 Ileana [place] [facility] 0 15:47:49 Varicella non-immun e 060392507 Active 2019 Ileana [place] [facility] 0 15:47:49 Threatene d premature labor - not delivered Active 2019 Ileana [place] [facility] 0 15:47:49 Threatene d premature labor - not delivered Active 2019 Ileana Gonzalez [place] [facility] 0 15:47:49 Depressiv e disorder 41152471 Active Todd [place] [facility] 6 00:57:13 Acute lower urinary tract infection 330784397 Active [place] [facility] 01/08/201 6 00:57:13 Problem Notes None recorded. Procedures Surgical History Date Name Laterality Status Provider Name and Address Organization Details Recorded Time 10/09/19 18 Control Implant Removal completed Todd Woodson [facility] 10/09/2017 13:50:38 09/23/19 18 Control Implant Insertion completed Ileana Hart MA [facility] 09/22/2017 13:07:23 02/24/19 17 Appendectomy completed Todd Woodson [facility] 04/27/2018 13:26:42 03/02/19 16 Control Implant Removal completed Todd Woodson [facility] 03/02/2015 17:13:44 Tonsillectomy completed Carley Sparks MA [facility] 04/10/2017 17:15:41 Imaging Results None recorded. Procedure Notes None recorded. Medical Equipment None Reported. Allergies No known drug allergies Medications Name Sig Start Date Stop Date Status Note LastModified by Organization Details LastModified Time multivita min tablet Take 1 tablet every day by oral route. active Not Available Not Available No t Available nifedipin e ER 30 mg tablet,ex tended release 24 hr Take 1 tablet every day by oral route. active Not Available Not Available No t Available cyclobenz aprine 10 mg tablet 12/27 completed Not Available Not Available Not Available amoxicill in 500 mg capsule 04/27 completed Not Available Not Available Not Available metformin 500 mg tablet Take 1 tablet twice a day by oral route. active Not Available Not Available No t Available bupropion HCl SR 150 mg tablet,12 hr sustained -release Take 1 tablet twice a day by oral route. 05/19 completed Not Available Not Available Not Available neomycin- polymyxin -hydrocor t 3.5 mg/mL-10, 000 unit/mL-1 % ear solution 12/27 completed Not Available Not Available Not Available clindamyc in HCl 300 mg capsule 12/27 completed Not Available Not Available Not Available azithromy danya 250 mg tablet TAKE 2 TABLETS (500 MG) BY ORAL ROUTE ONCE DAILY FOR 1 DAY THEN 1 TABLET (250 MG) BY ORAL ROUTE ONCE DAILY FOR 4 DAYS 04/27 completed Not Available Not Available Not Available ibuprofen 800 mg tablet 12/01 completed Not Available Not Available Not Available Lidocaine Viscous 2 % mucosal solution 03/25 completed Not Available Not Available Not Available fluconazo le 150 mg tablet Take 1 tablet by oral route. active Not Available Not Available No t Available naltrexon e 50 mg tablet Take 1 tablet every day by oral route. 05/19 completed Not Available Not Available Not Available metronida zole 0.75 % (37.5 mg/5 gram) vaginal gel Insert 1 applicat orful every day by vaginal route at bedtime for 5 days. 08/23 completed Not Available Not Available Not Available ondansetr on HCl 4 mg tablet 04/27 completed Not Available Not Available Not Available spironola ctone 100 mg tablet Take 1 tablet twice a day by oral route. active Not Available Not Available No t Available lidocaine 4 % topical cream Apply 1 applicat ion as needed by topical route as directed for 30 days. 12/27 completed Not Available Not Available Not Available penicilli n V potassium 500 mg tablet Take 1 tablet twice a day by oral route. 05/19 completed Not Available Not Available Not Available metronida zole 500 mg tablet Take 1 tablet twice a day by oral route for 7 days. 06/20 completed Not Available Not Available Not Available ciproflox acin 500 mg tablet Take 1 tablet every 12 hours by oral route. 03/25 completed Not Available Not Available Not Available sulfameth oxazole 800 mg-trimet hoprim 160 mg tablet Take 1 tablet every 12 hours by oral route after meals for 14 days. 04/27 completed Not Available Not Available Not Available aspirin 81 mg tablet,de layed release Take 2 tablets every day by oral route. 11/14 completed Not Available Not Available Not Available tramadol 50 mg tablet 12/27 completed Not Available Not Available Not Available amoxicill in 400 mg-potass ium clavulana te 57 mg/5 mL oral suspensio n Take 10 mL every 12 hours by oral route after meals for 7 days. 04/10 completed Not Available Not Available Not Available Vitamin tablet Take 1 tablet every day by oral route as directed for 90 days. 2019 active Not Available Not Available Not Avai lable betametha sone acetate and sodium phos 6 mg/mL suspensio n for injection Take 2 mL every day by injectio n route for 2 days. 2019 active done at [facility] Not Available Not Available Not Available oxycodone -acetamin ophen 5 mg-325 mg tablet 12/01 completed Not Available Not Available Not Available amoxicill in 875 mg tablet 12/01 completed Not Available Not Available Not Available simvastat in 20 mg tablet Take 1 tablet every day by oral route. 09/22 completed Not Available Not Available Not Available cyanocoba kathy (vit B-12) 1,000 mcg/mL injection solution Inject 1 mL every month by subcutan eous route. 2019 active Not Available Not Available Not Avai lable ferrous sulfate 325 mg (65 mg iron) tablet 12/27 completed Not Available Not Available Not Available promethaz ine 25 mg tablet 02/26 completed Not Available Not Available Not Available progester one micronize d 200 mg capsule Take 1 capsule twice a day by oral route. 11/14 completed Not Available Not Available Not Available omeprazol e 20 mg capsule,d elayed release 02/26 completed Not Available Not Available Not Available Banophen 25 mg capsule 12/27 completed Not Available Not Available Not Available folic acid 1 mg tablet Take 4 tablets every day by oral route. active Not Available Not Available No t Available amoxicill in 400 mg/5 mL oral suspensio n 03/25 completed Not Available Not Available Not Available mupirocin 2 % topical ointment APPLY A SMALL AMOUNT TO THE AFFECTED AREA BY TOPICAL ROUTE 3 TIMES PER DAY 04/27 completed Not Available Not Available Not Available letrozole 2.5 mg tablet Take 1 tablet every day by oral route for 5 days. active Not Available Not Available No t Available methylpre dnisolone 4 mg tablets in a dose pack Take 1 dose pk every day by oral route as directed for 6 days. 12/01 completed Not Available Not Available Not Available ondansetr on 4 mg disintegr ating tablet Take 1 tablet every 8 hours by oral route. active Not Available Not Available No t Available fluticaso ne propionat e 50 mcg/actua tion nasal spray,leroy pension Pisek 1 spray every day by intranas al route. 04/27 completed Not Available Not Available Not Available sertralin e 50 mg tablet 12/27 completed Not Available Not Available Not Available Celexa 40 mg tablet Take 1 tablet every day by oral route. 02/26 completed Not Available Not Available Not Available loratadin e 10 mg tablet Take 1 tablet every day by oral route. 04/27 completed Not Available Not Available Not Available naproxen 500 mg tablet 12/27 completed Not Available Not Available Not Available metoclopr amide 10 mg tablet Take 1 tablet 4 times a day by oral route. active Not Available Not Available No t Available progester one micronize d 100 mg capsule Take 1 capsule twice a day by oral route. 07/28 completed Not Available Not Available Not Available Ventolin HFA 90 mcg/actua tion aerosol inhaler 04/27 completed Not Available Not Available Not Available azithromy danya 500 mg tablet 03/25 completed Not Available Not Available Not Available June03/15 (21) 1 mg-20 mcg tablet Take 1 tablet every day by oral route. 05/19 completed Not Available Not Available Not Available hydrocodo ne 7.5 mg-acetam inophen 325 mg/15 mL oral solution 03/25 completed Not Available Not Available Not Available Seasoniqu e 0.15 mg-30 mcg (84)/10 mcg(7) tablets,3 month dose pack Take 1 tablet every day by oral route. 02/26 completed Not Available Not Available Not Available Calcium 600 + D(3) 600 mg-10 mcg (400 unit) tablet Take 1 tablet twice a day by oral route. active Not Available Not Available No t Available Viibryd 40 mg tablet Take 1 tablet every day by oral route. 02/26 completed Not Available Not Available Not Available Nexplanon 68 mg subdermal implant Inject 1 implant by subcutan eous route. 10/08 completed Not Available Not Available Not Available 28 mg iron-800 mcg tablet Take 1 tablet every day by oral route. active Not Available Not Available No t Available calcium 600 mg (as carbonate )-vitamin D3 20 mcg (800 unit) tablet Take 1 tablet twice a day by oral route. 12/01 completed Not Available Not Available Not Available Linzess 145 mcg capsule Take 1 capsule every day by oral route. 12/01 completed Not Available Not Available Not Available Vitamins Plus Low Iron 27 mg iron-1 mg tablet Take 1 tablet every day by oral route. 12/01 completed Not Available Not Available Not Available Xulane 150 mcg-35 mcg/24 hr transderm al patch Apply 1 patch every week by transder mal route. 04/27 completed Not Available Not Available Not Available Vitals Date Recorded Body height Body mass index (BMI) Systolic blood pressure Diastolic blood pressure Provider Name and Address Organization Details Last Updated DateTime 10/20/2019 159.39 cm 38.9 kg/m2 110 mm[Hg] 60 mm[Hg] Chloé Roland MA [facility] 10/20/2019 10:35:19 Date Recorded Body weight Provider Name an d Address Organization Details Last Updated DateTime 10/20/2019 82965.30409 g Todd Woodson [facility] 020 13:49:31 Date Recorded Body height Body mass index (BMI) Systolic blood pressure Diastolic blood pressure Provider Name and Address Organization Details Last Updated DateTime 10/26/2019 159.39 cm 38.4 kg/m2 122 mm[Hg] 86 mm[Hg] Chloé Roland MA [facility] 10/26/2019 11:06:12 Date Recorded Body weight Provider Name an d Address Organization Details Last Updated DateTime 10/26/2019 87341.05254 g Todd Salmeronman [facility] 18:52:20 Date Recorded Body height Body mass index (BMI) Systolic blood pressure Diastolic blood pressure Provider Name and Address Organization Details Last Updated DateTime 11/02/2019 159.39 cm 39.1 kg/m2 110 mm[Hg] 60 mm[Hg] Chloé Roland [facility] 11/02/2019 10:56:38 Date Recorded Body weight Provider Name an d Address Organization Details Last Updated DateTime 11/02/2019 27134.54348 g Todd Woodson [facility] 020 17:51:44 Date Recorded Body weight Provider Name an d Address Organization Details Last Updated DateTime 11/08/2019 532052.57024 g Todd Woodson [facility] 2019 18:02:23 Date Recorded Body height Body mass index (BMI) Systolic blood pressure Diastolic blood pressure Provider Name and Address Organization Details Last Updated DateTime 11/08/2019 159.39 cm 39.5 kg/m2 124 mm[Hg] 76 mm[Hg] Terri Bonilla MA [facility] 11/08/2019 15:07:10 Date Recorded Body weight Provider Name an d Address Organization Details Last Updated DateTime 11/15/2019 985666.52634 g DAVID PULIDO Attn: Accounting,[address] [facility], [place], [address], [facility] 11/15/2019 11:05:02 Date Recorded Body height Body mass index (BMI) Systolic blood pressure Diastolic blood pressure Provider Name and Address Organization Details Last Updated DateTime 11/15/2019 159.39 cm 39.6 kg/m2 118 mm[Hg] 68 mm[Hg] Chloé Roland MA [facility] 11/15/2019 10:34:43 Social History Question Answer Notes LastModified by Organizat ion Details LastModified Time Tobacco Smoking Status Former Smoker Ileana Hart MA [facility], [facility] 12/01/2018 17:15:31 Do You Have An Advance Directive? No Information not available 03/02/2015 Is Blood Transfusion Acceptable In An Emergency? Yes Information not available 03/02/2015 What Is Your Level Of Caffeine Consumption? Occasional Information not available 03/02/2015 How Much Tobacco Do You Chew? None Information not available 03/02/2015 What Type Of Diet Are You Following? REGULAR Information not available 03/02/2015 Which Illicit Or Recreational Drugs Have You Used? None [email or web address] Information not available 09/29/2017 Education 12 GED [email or web address] Information no t available 09/22/2017 Live Alone Or With Others? With Others Information not available 03/02/2015 What Was The Date Of Your Most Recent Tobacco Screening? 11/02/2019 Information not available 11/02/2019 How Many Children Do You Have? 1 [email or web address] Information not available 09/22/2017 Performs Monthly Self-breast Exam? Yes Information not available 03/02/2015 Do You Use Protection During Sex? No Information not available 03/02/2015 What Is Your Relationship Status? Single Engaged Information not available 04/27/2018 Seat Belts Used Routinely No Information not available 03/02/2015 Are You Sexually Active? Yes Information not available 03/02/2015 At What Age Did You Start Smoking Tobacco? 18 [email or web address] Information not available 12/01/2018 How Much Tobacco Do You Smoke? 1 PPW Information not available 04/02/2018 General Stress Level Low [email or web address] Information not available 04/10/2017 Do You Use Sunscreen Routinely? No Information not available 03/02/2015 On What Date Was Tobacco Cessation Counseling Provided? 11/02/2019 Information not available 11/02/2019 How Many Years Have You Smoked Tobacco? 2 Information not available 04/28/2019 Sex: Unknown Functional Status Question Answer Note LastModified by Organizat ion Details LastModified Time What is your level of alcohol consumption? None [email or web address] Information not available 02/27/2016 Do you or have you ever used smokeless tobacco? Never used smokeless tobacco [email or web address] Information not available 12/01/2018 Are you currently employed? 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 Never used electronic cigarettes [email or web address] Information not available 12/01/2018 What is your exercise level? Occasional Information not available 03/02/2015 Mental Status None recorded. Family History Relationship Description Onset Age of this Age Resolved Age Notes LastModified by Organization Details LastModified Time Mother Heart disease [email or web address] Not available 03/02 17:14:25 Mother Diabetes mellitus [email or web address] Not available 03/02 17:14:25 Mother Hypertensive disorder [email or web address] Not available 03/02 17:14:25 Father Diabetes mellitus [email or web address] Not available 02/26 12:45:52 Father Hypertensive disorder [email or web address] Not available 02/26 12:46:12 Notes:Breast Cancer (Mother) Medical History Condition Response Other Y High Blood Pressure N Breast Cancer N Thyroid Problems N Kidney or Bladder Problems N GI Problems N Depression Y Blood Clots Y Lung Disease N Acne N Breast Problem N Eating Disorder N Anemia Y Anesthesia Complications N Headaches/Migraines N Anxiety Disorder Y Diabetes N Ovarian Cancer N Muscle, Joint, or Bone Problems Y Blood Transfusions N Seizures/Epilepsy N Polyps N Infertility N Acid Reflux (GERD) N Cancer N Abuse/Domestic Violence N Asthma N Endometriosis N High Cholesterol N Hepatitis N Liver Disease N Heart Disease N Pre-Eclampsia N Osteoporosis N Gynecological History Statement/Question Response Date of LMP 01/26/2019 On BCP's at Conception? N STIs/STDs N HPV Vaccine Y Age at Menarche 12 Current Control Method Age at First Child 15 Sexually Active? Y Menses Monthly N Date of Last Pap Smear Sexual Problems? N LMP Definite Desired Control Method None Obstetrics History GPAL:G 3 P 1 0 1 1 Type Value Multiple Births 0 Full Term 1 Induced 0 Spontaneous 1 Premature 0 Living 1 Ectopics 0 Total 3 Immunizations Vaccine Type Date Status Note Provider Nam e and Address Organization Details Recorded Time Influenza, split virus, quadrivalent, PF 05/24/2019 completed Ileana Hart [place] null, [place] - [facility] 05/24/2019 14:44:57 Tdap 08/24/2019 completed Carley Sparks [place], [place] [facility] 08/24/2019 13:04:38 Past Encounters Encounter ID Performer Location Encounter Start Date Encounter Closed Date Diagnosis/Indication Diagnosis SNOMED-CT Code Diagnosis ICD10 Code Diagnosis Note [id number] MD Ge Ruiz (LAB ANIMAL TECHNICIAN) [address] [place] [id number] 03/02/2015 15:07:40 03/02/2015 17:51:36 Contraception care 890848799 Z30.40 Depressive disorder 3548 9007 F32.9 Subcutaneo us contraceptive implant palpable 260466196 Z30.49 Acute lowe r urinary tract infection 652436173 N39.0 [id number] MD Ge Terrell (Adult Med) [address] [place] [address] [id number] 02/27/2016 11:39:11 02/27/2016 13:11:18 Pain in right knee 2732219030 98171 M25.561 Family his tory of diabetes mellitus 753189889 Z83.3 [id number] MD Ge Terrell (Adult Med) [address] [place] [address] [phone] 0 05/21/2016 14:06:17 05/21/2016 18:07:37 Internal hemorrhoids 83331842 K64.8 [id number] Leny Saul MD [facility] (Adult Med) [address] [place] [address] [id number] 12/27/2016 10:00:53 12/27/2016 11:57:46 Paresthesia of upper limb 17683935 R20.2 Pain of sh oulder region 36015171 M25.511 Obesity 028620534 E66.9 Patient askes for the referral of bariatric surgeon referral. [id number] [facility] [address] [place] [phone] 0 03/03/2017 12:16:00 03/03/2017 13:30:36 Recurrent acute tonsillitis 304649948 J03.91 Go to ER for any time for any concern. Morbid obesity 264046741 E66.01 , exercise , lose weight, she won't be accepted by [facility]. U . due to insurnace, will search for the alternativ e. [id number] Leny Saul MD [facility] (Adult Med) [address] [place] [phone] 03/25/2017 14:44:36 03/26/2017 11:01:24 Sore throat 638240689 J02.9 Patient dose like lidocaine viscus. Will take tylenol as needed. Go to ER any time for any concern she understood and agreed. She walked out the office with attitude after leaning no narcotic will be prescribed .Bianca, referring personnel, will contact Dr. Sandie Hernandez, ENT office. [id number] MD Ge Ruiz (LAB ANIMAL TECHNICIAN) [address] [place] [phone] 0 04/10/2017 15:39:23 04/14/2017 13:10:55 Gynecologic examination 75154960 Z01.411 Polycystic ovaries 21945 008 E28.2 Family krysten nning surveillance 698975773 Z30.09 Body mass index 30+ - obesity 266194533 Z68.39 Depressive disorder 3548 9007 F32.9 [id number] MD Ge Walter (Adult Med) [address] [place] [address] [id number] 05/19/2017 12:39:12 05/19/2017 16:58:37 [id number] MD Ge Terrell (Adult Med) [address] [place] [address] [id number] 05/19/2017 12:51:08 05/19/2017 15:21:25 Kidney stone 98727358 N20.0 Urinalysis is near normal, patient is informed today. Urinary symptoms 0953740 08 R39.9 Will treat empiricall y pending the urine culture. [id number] MD Ge Ruiz (LAB ANIMAL TECHNICIAN) [address] [place] [address] [id number] 09/22/2017 11:13:13 09/22/2017 13:17:02 Body mass index 30+ - obesity 651500505 Z68.39 Depressive disorder 3548 9007 F32.9 Polycystic ovaries 69060 008 E28.2 Family krysten nning surveillance 544709146 Z30.09 Venereal d isease screening 915437157 Z11.3 Implantati on of subcutaneous contraceptive 543286629 Z30.9 [id number] MD Ge Ruiz (LAB ANIMAL TECHNICIAN) [address] [place] [address] [id number] 0 09/29/2017 16:51:26 09/30/2017 12:22:50 Bacterial vaginosis 244154127 N76.0 Surveillan ce of subcutaneous contraceptive implant done 5499706014 11983 Z30.46 Family krysten nning surveillance 531806232 Z30.09 Acute urin beltran tract infection 550086204 N39.0 [id number] MD Ge Ruiz (LAB ANIMAL TECHNICIAN) [address] [place] [address] [id number] 0 10/08/2017 14:40:46 10/08/2017 15:37:33 Family planning surveillance 734645057 Z30.09 Upper resp iratory infection 64599957 J06.9 Bacterial vaginosis 4197 18433 N76.0 Removal of subcutaneous contraceptive done 1482016800 76050 Z98.478 [id number] MD Ge Ruiz (LAB ANIMAL TECHNICIAN) [address] [place] [address] [id number] 0 04/02/2018 11:22:24 04/02/2018 15:15:50 Past history of miscarriage 696672486 Z87.59 [facility] 860837224 Z30.09 Morbid obesity 645883049 E66.01 [id number] MD Ge Ruiz (LAB ANIMAL TECHNICIAN) [address] [place] [address] 0 04/27/2018 13:06:28 04/27/2018 15:46:00 Heterozygous methylenetetrahydrofo late reductase mutation [id number] 54620 E72.12 keep scheduled appointmen t for B12 Depressive disorder 3548 9007 F32.9 Polycystic ovaries 10187 008 E28.2 [facility] surveillance 538662164 Z30.09 desires after next cycle Past pregn sandy history of miscarriage 648643013 Z87.59 Smoker 09299336 F17.722 [id number] MD Ge Ruiz (LAB ANIMAL TECHNICIAN) [address] [place] [address] [phone] 0 04/30/2018 12:40:26 05/01/2018 14:19:33 Heterozygous methylenetetrahydrofo late reductase mutation [id number] 87428 E72.12 keep scheduled appointmen t for B12 [id number] MD Ge Ruiz (LAB ANIMAL TECHNICIAN) [address] [place] [address] 0 07/28/2018 15:59:48 07/29/2018 15:45:49 Exposure to sexually transmissible disorder 475268325 Z20.2 [facility] nning surveillance 402666909 Z30.09 desires after next cycle Chronic id iopathic constipation 84942724 K59.04 [id number] MD Ge Ruiz (LAB ANIMAL TECHNICIAN) [address] [place] [address] 0 07/31/2018 12:38:27 08/03/2018 11:38:19 Heterozygous methylenetetrahydrofo late reductase mutation [id number] 78828 E72.12 keep scheduled appointmen t for B12 [id number] MD Ge Ruiz (LAB ANIMAL TECHNICIAN) [address] [place] [address] 88405-428 0 12/01/2018 16:03:00 12/02/2018 12:05:37 Family planning surveillance 387380574 Z30.09 Female infertility 79665 08 N97.9 Polycystic ovaries 26513 008 E28.2 Heterozygo us methylenetetrahydrofo late reductase mutation 4840203655 51123 E72.12 Past pregn sandy history of miscarriage 315721140 Z87.59 [id number] DAVID PULIDO (LAB ANIMAL TECHNICIAN) [address] [place] [address] 49751-409 0 04/06/2019 14:09:19 04/08/2019 09:33:09 Routine care 044009603 Z34.90 Venereal d isease screening 102944153 Z11.3 screening 2437 37976 Z36.85 Z36.0 Past pregn sandy history of miscarriage 452273361 Z87.59 Heterozygo us methylenetetrahydrofo late reductase mutation 4025604492 51030 E72.12 Continue ASA, folic acid, and B12 as prescribed . Abnormal progesterone 13 9892460 R94.7 Continue progestero ne as prescribed . Repeat level today. Obesity 332788648 E66.9 [id number] MD Ge Ruiz (LAB ANIMAL TECHNICIAN) [address] [place] [address] 57674-341 0 04/28/2019 15:53:02 04/28/2019 17:13:20 Heterozygous methylenetetrahydrofo late reductase mutation 6507983209 14178 E72.12 Depressive disorder 3548 9007 F32.9 Past pregn sandy history of miscarriage 572442322 Z87.59 Morbid obesity 237181796 E66.01 Routine an tenatal care 035850477 Z34.90 Monthly US Gastroesop hageal reflux disease 841652153 K21.9 Hyperemesi s gravidarum 79679296 O21.0 Banana therapy- eat one banana in the morning and one before bed [id number] MD Ge Ruiz (LAB ANIMAL TECHNICIAN) [address] [place] [address] 50687-959 0 05/24/2019 14:10:53 05/25/2019 09:36:20 Routine care 149586767 Z34.90 Monthly US Heterozygo us methylenetetrahydrofo late reductase mutation 5843092757 30322 E72.12 Administra tion of influenza vaccine 62162212 Z23 Abnormal progesterone 13 0861133 R94.7 Past pregn sandy history of miscarriage 134691039 Z87.59 Methicilli n resistant Staphylococcus aureus infection 727750159 A49.02 Subchorionic hematoma 60 4141564 O41.8X99 [id number] MD Ge Ruiz (LAB ANIMAL TECHNICIAN) [address] [place] [address] 43383-896 0 06/07/2019 13:36:33 06/18/2019 11:22:05 Routine care 703891501 Z34.90 Monthly US Abnormal progesterone 13 3674781 R94.7 Heterozygo us methylenetetrahydrofo late reductase mutation 3075021052 56450 E72.12 Depressive disorder 3548 9007 F32.9 Past pregn sandy history of miscarriage 388047737 Z87.59 Methicilli n resistant Staphylococcus aureus infection 957357730 A49.02 Subchorionic hematoma 60 6865648 O41.8X99 Low lying placenta 07775 2006 O44.42 Alpha-feto protein test - 873499756 Z36.1 [id number] MD Ge Ruiz (LAB ANIMAL TECHNICIAN) [address] [place] [address] 31329-672 0 06/16/2019 15:47:59 06/18/2019 15:03:21 Routine care 029886129 Z34.90 Monthly US Bacterial vaginosis 4197 37036 N76.0 Heterozygo us methylenetetrahydrofo late reductase mutation 6167954556 34887 E72.12 Exposure t o sexually transmissible disorder 234849949 Z20.2 [id number] MD Ge Ruiz (LAB ANIMAL TECHNICIAN) [address] [place] [address] 88612-893 0 06/21/2019 14:21:03 06/22/2019 17:22:18 Routine care 248068429 Z34.90 Monthly US Heterozygo us methylenetetrahydrofo late reductase mutation 5532556643 99517 E72.12 [id number] MD Ge Ruiz (LAB ANIMAL TECHNICIAN) [address] [place] [address] 69348-716 0 07/14/2019 11:10:11 07/15/2019 10:20:43 Routine care 295309926 Z34.82 Monthly US Heterozygo us methylenetetrahydrofo late reductase mutation 9433206152 24324 E72.12 Past pregn sandy history of miscarriage 996682802 Z87.59 Methicilli n resistant Staphylococcus aureus infection 236775443 A49.02 [id number] MD Ge Ruiz (LAB ANIMAL TECHNICIAN) [address] [place] [address] 03118-761 0 08/02/2019 16:00:38 08/03/2019 07:16:30 Routine care 333134555 Z34.82 Monthly US Heterozygo us methylenetetrahydrofo late reductase mutation 6639835631 08308 E72.12 Methicilli n resistant Staphylococcus aureus infection 884004856 A49.02 Depressive disorder 3548 9007 F32.9 [id number] MD Ge Ruiz (LAB ANIMAL TECHNICIAN) [address] [place] [address] 05119-064 0 08/24/2019 11:44:30 08/25/2019 11:38:10 Routine care 399254406 Z34.82 Monthly US screening 2437 74848 Z36.9 Heterozygo us methylenetetrahydrofo late reductase mutation 8856260897 17671 E72.12 Past pregn sandy history of miscarriage 080760443 Z87.59 [id number] MD Ge Ruiz (LAB ANIMAL TECHNICIAN) [address] [place] [address] 07818-200 0 09/15/2019 11:40:54 09/16/2019 08:38:55 Heterozygous methylenetetrahydrofo late reductase mutation 5732163337 02743 E72.12 Depressive disorder 3548 9007 F32.9 Methicilli n resistant Staphylococcus aureus infection 743719800 A49.02 Routine an tenatal care 063535988 Z34.83 Monthly [place] [id number] MD Ge Ruiz (LAB ANIMAL TECHNICIAN) [address] [place] [address] 50215-074 0 09/28/2019 14:50:53 09/29/2019 07:46:40 Routine care 069391066 Z34.83 Monthly US Threatened premature labor - not delivered 777969713 O47.9 Advised to drink at least 3L per day. Heterozygo us methylenetetrahydrofo late reductase mutation 9544209718 82520 E72.12 Depressive disorder 3548 9007 F32.9 Past pregn sandy history of miscarriage 945531189 Z87.59 [id number] Todd Woodson MD [facility] (LAB ANIMAL TECHNICIAN) [address] [place] [address] 33099-146 0 10/05/2019 10:41:41 10/06/2019 07:41:16 Routine care 600536505 Z34.83 Monthly US Heterozygo us methylenetetrahydrofo late reductase mutation 4580079155 64334 E72.12 Threatened premature labor - not delivered O47.9 Advised to drink at least 3L per day. [id number] Todd Woodson MD [facility] (LAB ANIMAL TECHNICIAN) [address] [place] [address] 29357-844 0 10/13/2019 10:19:14 10/14/2019 10:07:46 Routine care 333256962 Z34.83 Acute lowe r urinary tract infection 545446893 N39.0 Bacterial vaginosis 4197 95288 N76.0 Depressive disorder 3548 9007 F32.9 Heterozygo us methylenetetrahydrofo late reductase mutation 3464360336 27145 E72.12 Past pregn sandy history of miscarriage 893549131 Z87.59 Threatened premature labor - not delivered O47.9 Advised to drink at least 3L per day., steroids given, tocolytics , pelvic rest, ffnq2w Polycystic ovary syndrome 174324227 E28.2 [id number] Todd Woodson MD [facility] (LAB ANIMAL TECHNICIAN) [address] [place] [address] 01467-350 0 10/20/2019 10:24:36 10/21/2019 09:01:13 Routine care 473881482 Z34.83 Depressive disorder 3548 9007 F32.9 Bacterial vaginosis 4197 08856 N76.0 Heterozygo us methylenetetrahydrofo late reductase mutation 5973997901 18141 E72.12 Past pregn sandy history of miscarriage 151277605 Z87.59 Threatened premature labor - not delivered O47.9 Advised to drink at least 3L per day., steroids given, tocolytics , pelvic rest, ffnq2w [id number] Todd Woodson MD [facility] (LAB ANIMAL TECHNICIAN) [address] [place] [address] 74159-943 0 10/26/2019 10:25:05 10/26/2019 12:19:11 Routine care 383194813 Z34.83 Heterozygo us methylenetetrahydrofo late reductase mutation 9108015765 94566 E72.12 Methicilli n resistant Staphylococcus aureus infection 509712884 A49.02 Depressive disorder 3548 9007 F32.9 [id number] Todd Woodson MD [facility] (LAB ANIMAL TECHNICIAN) [address] [place] [address] [phone] 0 11/02/2019 10:08:33 11/04/2019 11:21:16 Routine care 682646735 Z34.83 Heterozygo us methylenetetrahydrofo late reductase mutation 2183388224 88118 E72.12 Depressive disorder 3548 9007 F32.9 [id number] Todd Woodson MD [facility] (LAB ANIMAL TECHNICIAN) [address] [place] [address] 70992-598 0 11/08/2019 14:59:54 11/09/2019 10:01:23 Routine care 044267602 Z34.83 Heterozygo us methylenetetrahydrofo late reductase mutation 1770601286 01578 E72.12 Past pregn sandy history of miscarriage 885126960 Z87.59 Threatened premature labor - not delivered O47.9 Advised to drink at least 3L per day., steroids given, tocolytics , pelvic rest, ffnq2w Methicilli n resistant Staphylococcus aureus infection 062626169 A49.02 Depressive disorder 3548 9007 F32.9 [id number] DAVID PULIDO [facility] (LAB ANIMAL TECHNICIAN) [address] [place] [address] [phone] 0 11/15/2019 10:10:29 11/16/2019 06:29:07 Routine care 200713526 Z34.90 19yo F, , presents for LUIS at 38w4d gestation. Hx of MTHFR, miscarriag e, (threatene d premature labor), depressive disorder, PCOS and obesity. Pt endorses irregular contractio ns and movement. Denies LOF. US 11/07 with EFW 3363g, NOEMI wnl. Reassuring fundal height and FHT present at 140. Plan for induction next Friday (11/21). Informatio n provided to patient. Advised to complete prescreeni ng this week. Heterozygo us methylenetetrahydrofo late reductase mutation 2040170058 09345 E72.12 Last B12 given 11/01. Depressive disorder 3548 9007 F32.9 Health Concerns Section Related Observation LastModified by Organization Detai ls LastModified Time None Recorded Concern Status LastModified by Organization Details LastModified Time None Recorded Advance Directives Directive N: Payers Encounter Date Sequence Insurance Name Policy Number Policy Shearer Covered Member ID Shearer Member ID Guarantor Name 10/20/2019 1 [employer] [place] ([place] [id number] Nona Stanley [id number] Nona Stanley 10/26/2019 1 [employer] [place] [id number] Nona Stanley [id number] Nona Stanley 11/02/2019 1 [employer] [place] [id number] 0003 Nona Stanley [id number] Nona Stanley 11/08/2019 1 [employer] [place] [id number] 0003 Nona Stanley [id number] Nona Stanley 11/15/2019 1 [employer] [place] [id number] 0003 Nona Stanley [id number] Nona Stanley Notes Date Note Type Note Provider Name and Address Organization Details Recorded Time 10/20/2019 text/html OB ProblemReport ed bypatient.Associated Symptoms:no abdominal pain; no cramping; no contractions; normal movement; no bleeding; no ROM; no vaginal discharge; no vaginal/vulvar itching or irritation; no dysuria; no frequency; no urgency; no hematuria; no fever; no nausea; no emesis; no constipation; no diarrhea/loose stool; no edema; no visual changes; no headache; no dizziness 19yo F, , 34.6 wks gestation, Hx of MTHFR, miscarriage (threatend premature labor), DD, PCOS and obesity, presents for ROB. Todd Woodson [facility] 10/20/2019 13:50:50 10/26/2019 text/html OB ProblemReport ed bypatient.Associated Symptoms:no abdominal pain; no cramping; no contractions; normal movement; no bleeding; no ROM; no vaginal discharge; no vaginal/vulvar itching or irritation; no dysuria; no frequency; no urgency; no hematuria; no fever; no nausea; no emesis; no constipation; no diarrhea/loose stool; no edema; no visual changes; no headache; no dizziness 19yo F, , 35.5 wks gestation, Hx of MTHFR, miscarriage, (threatend premature labor), DD, PCOS and obesity, presents for LUIS. Todd villarrael [facility] 10/26/2019 18:52:40 11/02/2019 text/html 19yo F, , presents for LUIS at 36w5d gestation. Hx of MTHFR, miscarriage, (threatend premature labor), depressive disorder, PCOS and obesity. No complaints. Todd villarreal [facility] 11/03/2019 15:08:47 11/02/2019 text/html OB ProblemReport ed bypatient.Associated Symptoms:no abdominal pain; no cramping; normal movement; no bleeding; no ROM; no vaginal discharge; no vaginal/vulvar itching or irritation; no dysuria; no frequency; no urgency; no hematuria; no fever; no nausea; no constipation; no diarrhea/loose stool; no edema; no visual changes; no headache; no dizziness;contraction s(3 min apart);emesis Todd villarreal [facility] 11/03/2019 15:08:47 11/08/2019 text/html OB ProblemReport ed bypatient.Associated Symptoms:no abdominal pain; no cramping; normal movement; no bleeding; no ROM; no vaginal discharge; no vaginal/vulvar itching or irritation; no dysuria; no frequency; no urgency; no hematuria; no fever; no nausea; no constipation; no diarrhea/loose stool; no edema; no visual changes; no headache; no dizziness;contraction s(3 min apart);emesis 19yo F, , presents for LUIS at 37w4d gestation. Hx of MTHFR, miscarriage, (threatend premature labor), depressive disorder, PCOS and obesity. Todd Woodson null, [place] [facility] 11/08/2019 18:03:07 11/15/2019 text/html OB ProblemReport ed bypatient.Associated Symptoms:no abdominal pain; no cramping; normal movement; no bleeding; no ROM; no vaginal discharge; no vaginal/vulvar itching or irritation; no dysuria; no frequency; no urgency; no hematuria; no fever; no nausea; no emesis; no constipation; no diarrhea/loose stool; no edema; no visual changes; no headache; no dizziness;contraction s 19yo F, , presents for LUIS at 38w4d gestation. Hx of MTHFR, miscarriage, (threatend premature labor), depressive disorder, PCOS and obesity. Pt upset today because she thought she was going to be induced. She reports continual, irregular contractions. She endorses movement. She denies LOF. DAVID PULIDO Attn: [address]ing[address] [place], [address], [facility] 11/15/2019 13:35:02 OBGyn Episode Ob Episode Information Episode Created Date Number of Fetuses Patient Bloodtype Patient rh Status Prepregnancy Weight lbs Domestic Partner Domestic Partner Phone Father Name Ore Puncher Status 04/28/19 19 1 CLOSED Fetus Data First Name Last Name Admitted to NICU Weight (g) Sex Living Outcome Pediatric Complications Fetus ID Race Codes Race Delivery Type , [place] [id number] Dion Calculation Initial Dion Date Initial Exam Date Initial Exam Provider Initial Ultrasound Date Last Menstrual Period Date Ultra Sound Weeks Gestation 0 Eighteen To Twenty Week Dion Update Ultra Sound Date Fundal Height At Umbil Quickening Date Ultra Sound Latest Weeks Gestation Final Dion Confirmed By Final Dion Confirmed Date Final Dion Date Ultra Sound Latest Days Gestation 0 0 Menstrual History Last Menstrual Date Menses Monthly On Bcp Conception Prior Menses Frequency Hcg Plus Date Menarche Onset Age Delivery Information Delivery Date Delivery Type Labor Anesthesia Weeks Gestation Incision Type Labor Labor Length Hrs Delivered By Post Complications Tubal Sterilization Discharge Date Comments 8 None 5 Discharge Information Feeding Method Contraceptive Method Maternal HG B and HCT Levels Ob Episode Information Episode Created Date Number of Fetuses Patient Bloodtype Patient rh Status Prepregnancy Weight lbs Domestic Partner Domestic Partner Phone Father Name Ore Puncher Status 04/06/19 1 OPEN Fetus Data First Name Last Name Admitted to NICU Weight (g) Sex Living Outcome Pediatric Complications Fetus ID Race Codes Race Delivery Type [id number] Problems Problem Notes 08/02/2019 baby girl, yes to circ if boy, NCB , [facility], PPBC condoms, cb-rma non stress test Friday' starting 10/07 @ 9:30, [facility] Problem Name Start Date End Date Resolution Snomed Code Not e Threatened premature labor - not delivered 10/05/2019 [id number] Heterozygous methylenetetrahydrofolate reductase mutation 04/15/2018 [id number] Abnormal progesterone 04/10/2019 4858317 00 Subchorionic hematoma 04/07/2019 1770919 04 Varicella non-immune 04/12/2019 57568333 9 Past history of miscarriage 04/27/2018 [id number] Dion Calculation Initial Dion Date Initial Exam Date Initial Exam Provider Initial Ultrasound Date Last Menstrual Period Date Ultra Sound Weeks Gestation 11/25/2019 04/06/2019 [email or web address] 04/06/2019 01/26/2019 6 Eighteen To Twenty Week Dion Update Ultra Sound Date Fundal Height At Umbil Quickening Date Ultra Sound Latest Weeks Gestation Final Dion Confirmed By Final Dion Confirmed Date Final Dion Date Ultra Sound Latest Days Gestation 04/06/19 20 6 [email or web address] 04/07/2019 11/25/19 20 5 Pre-travis Flowsheet Flowsheet Date 04/06/2019 Olson Score Blood Edema Fundus Height Fundus Units Glucose Ketones Leukocytes Nitrite Labor Signs Protein Cervic Dilation Cervic Effacement Cervic Station neg none 8 wks none negative trace Type Weight in lbs Pre/Post Dialysis Refused Weight 220.116494071694 BP Diastolic BP Location Tested BP Systolic BP Type 60 112 sitting Fetus Heart Rate Present Fetus Movement Comments NOB labs today. OB education al packet reviewed and provided to patient. Order for first trimester US given. Flowsheet Date 04/28/2019 Olson Score Blood Edema Fundus Height Fundus Units Glucose Ketones Leukocytes Nitrite Labor Signs Protein Cervic Dilation Cervic Effacement Cervic Station trace none 9.6 wks none negative Cramping neg Type Weight in lbs Pre/Post Dialysis Refused With clothes 213.976089138852 BP Diastolic BP Location Tested BP Systolic BP Type 52 106 sitting Fetus Heart Rate Present A Absent Fetus Movement A No Comments Banana therapy- eat one bana na in the morning and one before bed Flowsheet Date 05/24/2019 Olson Score Blood Edema Fundus Height Fundus Units Glucose Ketones Leukocytes Nitrite Labor Signs Protein Cervic Dilation Cervic Effacement Cervic Station neg none 13 wks none negative none neg Type Weight in lbs Pre/Post Dialysis Refused With clothes 214.543392036327 BP Diastolic BP Location Tested BP Systolic BP Type 54 102 sitting Fetus Heart Rate Present A 161 Present Fetus Movement A No Comments b12/influenza/ repeat us Flowsheet Date 06/07/2019 Olson Score Blood Edema Fundus Height Fundus Units Glucose Ketones Leukocytes Nitrite Labor Signs Protein Cervic Dilation Cervic Effacement Cervic Station neg none 15 wks none negative none neg Type Weight in lbs Pre/Post Dialysis Refused With clothes 211.978055216835 BP Diastolic BP Location Tested BP Systolic BP Type 68 104 sitting Fetus Heart Rate Present A 154 Present Fetus Movement A Yes Comments afp, b12,us next Flowsheet Date 06/16/2019 Olson Score Blood Edema Fundus Height Fundus Units Glucose Ketones Leukocytes Nitrite Labor Signs Protein Cervic Dilation Cervic Effacement Cervic Station 16 wks Bleeding Type Weight in lbs Pre/Post Dialysis Refused With clothes 290.4643053711 BP Diastolic BP Location Tested BP Systolic BP Type 48 92 sitting Fetus Heart Rate Present A 133 Present Fetus Movement Comments bv/yeast/ low lying placenta Flowsheet Date 06/21/2019 Olson Score Blood Edema Fundus Height Fundus Units Glucose Ketones Leukocytes Nitrite Labor Signs Protein Cervic Dilation Cervic Effacement Cervic Station none 17 wks none Type Weight in lbs Pre/Post Dialysis Refused With clothes 212.11858111819 BP Diastolic BP Location Tested BP Systolic BP Type 56 98 sitting Fetus Heart Rate Present A 138 Present Fetus Movement A No Comments b12 Flowsheet Date 07/14/2019 Olson Score Blood Edema Fundus Height Fundus Units Glucose Ketones Leukocytes Nitrite Labor Signs Protein Cervic Dilation Cervic Effacement Cervic Station neg none 20 wks none negative none neg Type Weight in lbs Pre/Post Dialysis Refused Weight 215.339674510288 BP Diastolic BP Location Tested BP Systolic BP Type 58 118 sitting Fetus Heart Rate Present A 138 Present Fetus Movement A Yes Comments us normal Flowsheet Date 08/02/2019 Olson Score Blood Edema Fundus Height Fundus Units Glucose Ketones Leukocytes Nitrite Labor Signs Protein Cervic Dilation Cervic Effacement Cervic Station neg none 24 wks none negative none neg Type Weight in lbs Pre/Post Dialysis Refused With clothes 218.243907063376 BP Diastolic BP Location Tested BP Systolic BP Type 60 100 sitting Fetus Heart Rate Present A 145 Fetus Movement A Yes Comments ob F/U Flowsheet Date 08/24/2019 Olson Score Blood Edema Fundus Height Fundus Units Glucose Ketones Leukocytes Nitrite Labor Signs Protein Cervic Dilation Cervic Effacement Cervic Station neg none 27 cm none negative none neg Type Weight in lbs Pre/Post Dialysis Refused Stated 216.524693439693 BP Diastolic BP Location Tested BP Systolic BP Type 60 92 sitting Fetus Heart Rate Present A 150 Present Fetus Movement A Yes Comments Flowsheet Date 09/15/2019 Olson Score Blood Edema Fundus Height Fundus Units Glucose Ketones Leukocytes Nitrite Labor Signs Protein Cervic Dilation Cervic Effacement Cervic Station neg none 30 cm none negative none neg Type Weight in lbs Pre/Post Dialysis Refused With clothes 215.297413377260 BP Diastolic BP Location Tested BP Systolic BP Type 68 120 sitting Fetus Heart Rate Present A 144 Present Fetus Movement A Yes Comments gtt done/ us Flowsheet Date 09/28/2019 Olson Score Blood Edema Fundus Height Fundus Units Glucose Ketones Leukocytes Nitrite Labor Signs Protein Cervic Dilation Cervic Effacement Cervic Station neg none 33 cm none negative Cramping neg 0cm 0% -4 Type Weight in lbs Pre/Post Dialysis Refused With clothes 216.061920698537 BP Diastolic BP Location Tested BP Systolic BP Type 56 110 sitting Fetus Heart Rate Present A 150 Present Fetus Movement A Yes Comments steroids tocolytics ffn cult ures monitoring Trey Flowsheet Date 10/05/2019 Olson Score Blood Edema Fundus Height Fundus Units Glucose Ketones Leukocytes Nitrite Labor Signs Protein Cervic Dilation Cervic Effacement Cervic Station neg none 37 cm none negative none neg Type Weight in lbs Pre/Post Dialysis Refused With clothes 213.047632226393 BP Diastolic BP Location Tested BP Systolic BP Type 50 110 sitting Fetus Heart Rate Present A 157 Present Fetus Movement A Yes Comments threatened labor nee ds bpp/NST weekly and weekly visits; FFN- last week , was seen at [facility] for decreased FM and BPP 12/03 Flowsheet Date 10/13/2019 Olson Score Blood Edema Fundus Height Fundus Units Glucose Ketones Leukocytes Nitrite Labor Signs Protein Cervic Dilation Cervic Effacement Cervic Station neg trace 33 wks none negative none neg Type Weight in lbs Pre/Post Dialysis Refused With clothes 214.934287282678 BP Diastolic BP Location Tested BP Systolic BP Type 48 96 sitting Fetus Heart Rate Present A 145 Present Fetus Movement A Yes Comments ffn, nst Flowsheet Date 10/20/2019 Olson Score Blood Edema Fundus Height Fundus Units Glucose Ketones Leukocytes Nitrite Labor Signs Protein Cervic Dilation Cervic Effacement Cervic Station neg none 34 wks none negative Cramping neg Type Weight in lbs Pre/Post Dialysis Refused With clothes 218.851383251460 BP Diastolic BP Location Tested BP Systolic BP Type 60 110 sitting Fetus Heart Rate Present A 145 Present Fetus Movement A Yes Comments educated patient on risk for delivery and induction not indicated in low risk patient until 39 weeks. Flowsheet Date 10/26/2019 Olson Score Blood Edema Fundus Height Fundus Units Glucose Ketones Leukocytes Nitrite Labor Signs Protein Cervic Dilation Cervic Effacement Cervic Station neg none 34 cm none negative none neg 2cm 50% - 3 Type Weight in lbs Pre/Post Dialysis Refused With clothes 215.600221880151 BP Diastolic BP Location Tested BP Systolic BP Type 86 122 sitting Fetus Heart Rate Present A 144 Present Fetus Movement A Yes Comments ptl Flowsheet Date 11/02/2019 Olson Score Blood Edema Fundus Height Fundus Units Glucose Ketones Leukocytes Nitrite Labor Signs Protein Cervic Dilation Cervic Effacement Cervic Station neg trace 37 cm none negative Uterine Contract ions trace 2cm 0% 0 Type Weight in lbs Pre/Post Dialysis Refused With clothes [id number] BP Diastolic BP Location Tested BP Systolic BP Type 60 110 sitting Fetus Heart Rate Present A 145 Present Fetus Movement A Yes Comments RTC 1 week. Discussed with p atient to wait out contractions vs tocolytics. Flowsheet Date 11/08/2019 Olson Score Blood Edema Fundus Height Fundus Units Glucose Ketones Leukocytes Nitrite Labor Signs Protein Cervic Dilation Cervic Effacement Cervic Station neg none 37 cm none negative Uterine Contract ions neg 2cm 50% -4 Type Weight in lbs Pre/Post Dialysis Refused Weight 221.113854115475 BP Diastolic BP Location Tested BP Systolic BP Type 76 124 sitting Fetus Heart Rate Present A 150 Present Fetus Movement A Yes Comments Pt scheduled for US today. Flowsheet Date 11/15/2019 Olson Score Blood Edema Fundus Height Fundus Units Glucose Ketones Leukocytes Nitrite Labor Signs Protein Cervic Dilation Cervic Effacement Cervic Station neg none 38 wks none negative Uterine Contract ions trace 2cm 50% -4 Type Weight in lbs Pre/Post Dialysis Refused With clothes 222.26320454196 BP Diastolic BP Location Tested BP Systolic BP Type 68 118 sitting Fetus Heart Rate Present A 140 Present Fetus Movement A Yes Comments 19yo F, , presents fo r LUIS at 38w4d gestation. Pt endorses irregular contractions and movement. Denies LOF. US 11/07 with EFW 3363g, NOEMI wnl. Plan for induction next Friday (11/21). Information provided to patient. Advised to complete prescreening this week. WTC/WLB reviewed. Menstrual History Last Menstrual Date Menses Monthly On Bcp Conception Prior Menses Frequency Hcg Plus Date Menarche Onset Age 1201/26/2019 true false 14 Genetic Screening And Infection History Question Response Note Patient's Age Will Be 35 Yea rs Or Older At Estimated Date of Delivery false Thalassemia (Cambodian, Estonian, Mediterranean, Or Background): MCV < 80 false Neural Tube Defect (Meningom yelocele, Spina Bifida, Or Anencephaly) false Congenital Heart Defect false Down Syndrome false Demarco-Sachs (eg, Congregation, Cajun, German-Cayman Islander) f alse Moises Disease false Sickle Cell Disease Or Trait () false Hemophilia Or Other Blood Disorders false Muscular Dystrophy false Cystic Fibrosis false Hollis's Chorea false Mental Retardation/Autism true father 's half brother If Yes, Was Person Tested For Fragile X? false Other Inherited Genetic Or Chromosomal Disorder true MTHFR Maternal Metabolic Disorder (eg, Type 1 Diabetes , PKU) false Patient Or Baby's Father Had A Child With Defects Not Listed Above false Recurrent Loss, Or A Stillbirth true 1 miscarriage Medications (including Suppl ements, Vitamins, Herbs, OTC Drugs), Illicit/Recreational Drugs, Alcohol false If Yes, Agent(s) And Strength/Dosage false Any Other Genetic History false Live With Someone With TB Or Exposed To TB false Patient Or Partner Has History Of Genital Herpes false Rash Or Viral Illness Since Last Menstrual Perio d false History Of STD, Gonorrhea, Chlamydia, HPV, Syphi lis false Other Infection History false History of HIV false History of Hepatitis false Prior GBS-infected child false Plans and Education First Trimester Discussed Date Discussion Item Discussion Note Discuss ed By 04/06/2019 Anticipated course o f care [email or web address] 04/06/2019 Alcohol [email or web address] 04/06/2019 Intimate partner violence emilia [email or web address] 04/06/2019 Environmental/work hazards j [email or web address] 04/06/2019 Screening for aneuploidy [email or web address] 04/06/2019 Nutrition counseling ; special diet; dietary precautions (mercury, listeriosis) [email or web address] 04/06/2019 Childbirth classes/h ospital facilities [email or web address] 04/06/2019 HIV and other routin e tests [email or web address] 04/06/2019 Risk factors identif ied by history [email or web address] 04/06/2019 Weight gain counseling jcort [email or web address] 04/06/2019 Exercise [email or web address] 04/06/2019 Teratogens [email or web address] 04/06/2019 Use of any medicatio ns (including supplements, vitamins, herbs, or OTC drugs) [email or web address] 04/06/2019 06/21/2019 john juarez, cb-rma [email or web address] 04/06/2019 Sexual activity [email or web address] 04/06/2019 Tobacco/smoking cess ation counseling (ask, advise, assess, assist, and arrange) [email or web address] 04/06/2019 Illicit/recreational drugs j [email or web address] 04/06/2019 Dental care [email or web address] 04/06/2019 Travel [email or web address] 04/06/2019 Seat belt use [email or web address] 04/06/2019 Indications for ultrasonography [email or web address] 04/06/2019 Avoidance of saunas or hot tubs [email or web address] 04/06/2019 Toxoplasmosis precau tions (cats/raw meat) [email or web address] Second Trimester Discussed Date Discussion Item Discussion Note Discuss ed By 06/21/2019 Selecting a care provider 08/02/2019 Dr. Yolanda FAUSTIN, cb-rma dania 06/21/2019 family planning/tubal sterilization 06/21/2019 PPBC Condoms, cb-rma dania 08/24/2019 Depression screening (when indicated) [facility] 08/24/2019 Abnormal lab values asserm an 08/24/2019 Signs and symptoms o f labor r [facility] 08/24/2019 Intimate partner violence [facility] 08/24/2019 Tobacco/smoking cess ation counseling (ask, advise, assess, assist, and arrange) [facility] Third Trimester Discussed Date Discussion Item Discussion Note Discuss ed By 08/02/2019 Anesthesia plans 08/02/2019 NCB, nat bro 08/02/2019 Circumcision baby girl, yes to circ if boy, nat najera 08/02/2019 08/02/2019 breast feed. mark- rmomkar najera Delivery Information Delivery Date Delivery Type Labor Anesthesia Weeks Gestation Incision Type Labor Labor Length Hrs Delivered By Post Complications Tubal Sterilization Discharge Date Comments afehrenbac her Discharge Information Feeding Method Contraceptive Method Maternal HG B and HCT Levels Ob Episode Information Episode Created Date Number of Fetuses Patient Bloodtype Patient rh Status Prepregnancy Weight lbs Domestic Partner Domestic Partner Phone Father Name Ore Puncher Status 04/10/19 18 1 CLOSED Fetus Data First Name Last Name Admitted to NICU Weight (g) Sex Living Outcome Pediatric Complications Fetus ID Race Codes Race Delivery Type 3373.36 3704 M Full Term [id number] Vaginal Dion Calculation Initial Dion Date Initial Exam Date Initial Exam Provider Initial Ultrasound Date Last Menstrual Period Date Ultra Sound Weeks Gestation 0 Eighteen To Twenty Week Dion Update Ultra Sound Date Fundal Height At Umbil Quickening Date Ultra Sound Latest Weeks Gestation Final Dion Confirmed By Final Dion Confirmed Date Final Dion Date Ultra Sound Latest Days Gestation 0 0 Menstrual History Last Menstrual Date Menses Monthly On Bcp Conception Prior Menses Frequency Hcg Plus Date Menarche Onset Age Delivery Information Delivery Date Delivery Type Labor Anesthesia Weeks Gestation Incision Type Labor Labor Length Hrs Delivered By Post Complications Tubal Sterilization Discharge Date Comments 6 Regional-Ep idural 40 false Discharge Information Feeding Method Contraceptive Method Maternal HG B and HCT Levels
--- NOTE | 2024-08-04 18:34 | ED_ITS ---
HPI - Nausea/Vomiting/Diarrhea General Chief complaint: Nausea/Vomiting/Diarrhea <MELISSA Herrera Last Filed: 08/04/24 18:42> Stated complaint: ozempic dose increse, N/V <MELISSA Herrera Last Filed: 08/04/24 18:42> Time Seen by Provider: 08/04/24 18:34 <MELISSA Herrera Last Filed: 08/04/24 18:42> Focused HPI: Patient is a 24 y/o female who presents to the ED with c/o N/V. Patient reports vomiting began on Friday morning. States she has had difficulty keeping down food and drink since then. Notes she has been on ozempic for weight loss for past year, but had dose increased to 2mg this week. Does report some R sided abd pain, oliguria. Does note she has had issues with her gallbladder in the past. Patient also reports she fainted this morning after episode of emesis. Reports she fell and hit her head on the toilet. Does c/o lightheadedness with position changes, SERRA currently. Denies diarrhea, constipation, fevers. GENERAL: Mildly ill appearing, morbidly obese with BMI of 43.3, and in no acute distress. HEAD: Normocephalic, atraumatic. CHEST: Clear to auscultation. ?No respiratory distress. HEART: Regular rate and rhythm. ABD: TTP in RUQ, epigastric region NEURO: ?Alert and oriented x3. Patient screened in triage and initial orders placed.? ?Additional care and disposition to be based upon?diagnostic testing and treatment. <MELISSA Herrera Last Filed: 08/04/24 18:42> Source: patient <MELISSA Herrera Last Filed: 08/04/24 18:42> Mode of arrival: ambulatory <MELISSA Herrera Last Filed: 08/04/24 18:42> Limitations: no limitations <MELISSA Herrera Last Filed: 08/04/24 18:42> Related Data Allergies/Adverse reactions: Allergies Allergy/AdvReac Type Severity Reaction Status Date / Time No Known Allergies Allergy Verified 04/23/24 10:34 <Kelly Rushing PA-C - Last Filed: 08/04/24 18:42> [facility] Past Medical History Medical History: Medical History Polyhydramnios affecting Vaginal delivery 12-21-2015, 40 wks 1. M, 7lbs 7oz, Vaginal PCOS (polycystic ovarian syndrome) Maternal varicella, non-immune MRSA (methicillin resistant Staphylococcus aureus) History of miscarriage 02-12-2018, 5 wks 1. Nephrolithiasis UTI (urinary tract infection) Depressive disorder BV (bacterial vaginosis) Heterozygous MTHFR mutation [id number] Abdominal trauma Patient denies significant medical history <Kelly Rushing PA-C - Last Filed: 08/04/24 18:42> Surgical History Surgical History: Surgical History Hx of appendectomy Hx of tonsillectomy <Kelly Rushing PA-C - Last Filed: 08/04/24 18:42> Family History Family History: Family History Mother Heart disease Hypertension Diabetes mellitus Father Diabetes mellitus Heart disease Hypertension Other No pertinent family history <Kelly Rushing PA-C - Last Filed: 08/04/24 18:42> Social History Social History: Social History (Updated 04/23/24 @ 10:36 by Patricia Roberts MA) Years smoked: 2 Smoking status: Former smoker Tobacco type: cigarettes Second hand tobacco smoke exposure: Yes Alcohol intake: never Substance use: never Substance use type: does not use Do You Feel Safe in your Home?: Yes Lack of Transportation: No Lack of Food: Never True Current Housing: I Have Housing Concerned About Future Housing: No Difficulty Paying Gas/Electric Bills: No Difficulty Paying for Meds: No Currently Unemployed: No Education: High School Diploma/GED Difficulty w/ Childcare or Family Care: No Living arrangements: with friend(s) Occupation/Education: occupation 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 Head: atraumatic. EYES: EOMI, NOSE: Atraumatic NECK: Trachea midline no midline cervical tenderness RESPIRATORY: No increased rate of breathing clear to auscultation CARDIOVASCULAR: RRR, no peripheral edema ABDOMINAL: Non-distended soft nontender no guarding rebound no CVA tenderness MUSCULOSKELETAl: No obvious deformities NEURO: Alert. Cranial nerves 2-12 grossly intact. Sensation light touch, motor function cerebellar function intact for 4 extremities. Gait exam was normal. SKIN:: Warm, dry. Normal color PSYCHIATRIC: Normal affect <Patel Callejas MD - Last Filed: 08/04/24 20:49> Course Vital Signs Vital signs: Vital Signs Temperature 98.3 F 08/04/24 18:09 Pulse Rate 97 08/04/24 18:09 Respiratory Rate 16 08/04/24 18:09 Blood Pressure 141/83 H 08/04/24 18:09 Pulse Oximetry 97 08/04/24 18:09 Oxygen Delivery Room Air 08/04/24 18:09 Temperature 98.3 F 08/04/24 18:09 Pulse Rate 99 08/04/24 19:09 Respiratory Rate 14 08/04/24 18:44 Blood Pressure 120/81 08/04/24 19:09 Pulse Oximetry 96 08/04/24 18:44 Oxygen Delivery Room Air 08/04/24 18:44 <Kelly Rushing PA-C - Last Filed: 08/04/24 18:42> Vital Signs Temperature 98.3 F 08/04/24 18:09 Pulse Rate 97 08/04/24 18:09 Respiratory Rate 16 08/04/24 18:09 Blood Pressure 141/83 H 08/04/24 18:09 Pulse Oximetry 97 08/04/24 18:09 Oxygen Delivery Room Air 08/04/24 18:09 Temperature 98.3 F 08/04/24 18:09 Pulse Rate 99 08/04/24 19:09 Respiratory Rate 14 08/04/24 18:44 Blood Pressure 120/81 08/04/24 19:09 Pulse Oximetry 96 08/04/24 18:44 Oxygen Delivery Room Air 08/04/24 18:44 <Patel Callejas MD - Last Filed: 08/04/24 20:49> MDM - Nausea/Vomiting/Diarrhea MDM Narrative Medical decision making narrative: MSE by NAVNEET in triage. <Kelly Rushing PA-C - Last Filed: 08/04/24 18:42> MSE by NAVNEET in triage. -Course: 24-year-old female presenting after nausea and vomiting in the setting increased owns a make use. She did have a syncopal event after retching which is likely multifactorial vasovagal/orthostatic. Patient given fluid resuscitation is feeling much better. Do was given antiemetics and a migraine cocktail for her headache with improvement. She is now tolerating p.o.. She will be discharged on Zofran. -DDX includes but is not limited to: Nausea vomiting from Ozempic, gastroenteritis, gastritis, peptic ulcer disease viral syndrome -Dx tests considered but not ordered: CT abdomen pelvis -benign abdominal exam, young female, clear cause of vomiting. <Patel Callejas MD - Last Filed: 08/04/24 20:49> Lab Data Result diagrams: 08/04/24 18:41 08/04/24 18:41 <Kelly Rushing PA-C - Last Filed: 08/04/24 18:42> Labs: Lab Results 08/04/24 08/04/24 08/04/24 Range/Units 18:41 19:23 19:26 WBC 10.3 H (4.5-10.0) K/mm3 RBC 5.31 (4.2-5.4) M/mm3 Hgb 15.1 H (12.0-15.0) g/dL Hct 47.3 H (37.0-47.0) % MCV 89.1 (80-100) fl MCH 28.4 (26-34) pg MCHC 31.9 L (32-36) g/dl RDW 13.1 (11.5-14.5) % Plt Count 229 (150-375) k/mm3 MPV 11.2 H (7.4-10.4) fl Immature Gran % (Auto) 0.4 (0-0.5) % Neut % (Auto) 66.4 (45.5-73.1) % Lymph % (Auto) 25.5 (18.3-44.2) % [place] % (Auto) 6.6 (2.6-8.5) % Eos % (Auto) 0.8 (0-4.4) % Baso % (Auto) 0.3 (0.2-1.2) % Lymph # (Auto) 2.63 (0.9-3.2) K/mm3 [place] # (Auto) 0.7 H (0.1-0.6) K/mm3 Eos # (Auto) 0.1 (0-0.3) K/mm3 Baso # (Auto) 0.0 (0.0-0.1) K/mm3 Abs Immat Gran (auto) 0.04 H (0.00-0.031) K/mm3 Absolute Neuts (auto) 6.9 H (1.3-6.7) K/mm3 Absolute Nucleated RBC 0.000 (0.0-0.012) K/mm3 Nucleated RBC % 0.0 (0.0-0.2) % Sodium 141 (137-145) mmol/L Potassium 4.5 (3.4-5.0) mmol/L Chloride 105 (98-107) mmol/L Carbon Dioxide 24 (22-30) mmol/L Anion Gap 12 (4-12) mmol/L BUN 17 (7-17) mg/dL Creatinine 0.67 L (0.7-1.0) mg/dL Estim Creat Clear Calc 126 ml/min Estimated GFR > 60 (59 - ) Glucose 86 (65-110) mg/dL Calcium 9.9 (8.4-10.2) mg/dL Magnesium 2.0 (1.6-2.3) mg/dL Total Bilirubin 1.3 (0.2-1.3) mg/dL AST 39 H (14-36) U/L ALT 34 (6-35) U/L Alkaline Phosphatase 49 (38-126) U/L Total Protein 8.6 H (6.3-8.2) g/dL Albumin 5.0 (3.5-5.1) g/dL Lipase 48 (23-300) U/L Urine Color Dark yellow (Yellow) Urine Appearance Clear (Clear) Urine pH 6.0 (5.0-9.0) Ur Specific [place] 1.031 (1.001-1.035) Urine Protein 1+ H (Negative) mg/dL Urine Glucose (UA) Negative (Negative) mg/dL Urine Ketones Trace H (Negative) mg/dL Ur Blood (Man) 3+ H (Negative) Urine Nitrate Negative (Negative) Urine Bilirubin Negative (Negative) Urine Urobilinogen 1.0 (<2.0) mg/dL Leukocyte Esterase Rfl 1+ H (Negative) GWENDOLYN/UL Urine RBC 11-20 H (0-2) /hpf Urine WBC 6-10 H (0-3) /hpf Ur Squamous Epith Cells Moderate (Few) /hpf Urine Bacteria 1+ H /hpf Urine Casts 0-2 POC Urine HCG, Qual Negative (Negative) <Kelly Rushing PA-C - Last Filed: 08/04/24 18:42> Lab Results 08/04/24 08/04/24 08/04/24 Range/Units 18:41 19:23 19:26 WBC 10.3 H (4.5-10.0) K/mm3 RBC 5.31 (4.2-5.4) M/mm3 Hgb 15.1 H (12.0-15.0) g/dL Hct 47.3 H (37.0-47.0) % MCV 89.1 (80-100) fl MCH 28.4 (26-34) pg MCHC 31.9 L (32-36) g/dl RDW 13.1 (11.5-14.5) % Plt Count 229 (150-375) k/mm3 MPV 11.2 H (7.4-10.4) fl Immature Gran % (Auto) 0.4 (0-0.5) % Neut % (Auto) 66.4 (45.5-73.1) % Lymph % (Auto) 25.5 (18.3-44.2) % [place] % (Auto) 6.6 (2.6-8.5) % Eos % (Auto) 0.8 (0-4.4) % Baso % (Auto) 0.3 (0.2-1.2) % Lymph # (Auto) 2.63 (0.9-3.2) K/mm3 [place] # (Auto) 0.7 H (0.1-0.6) K/mm3 Eos # (Auto) 0.1 (0-0.3) K/mm3 Baso # (Auto) 0.0 (0.0-0.1) K/mm3 Abs Immat Gran (auto) 0.04 H (0.00-0.031) K/mm3 Absolute Neuts (auto) 6.9 H (1.3-6.7) K/mm3 Absolute Nucleated RBC 0.000 (0.0-0.012) K/mm3 Nucleated RBC % 0.0 (0.0-0.2) % Sodium 141 (137-145) mmol/L Potassium 4.5 (3.4-5.0) mmol/L Chloride 105 (98-107) mmol/L Carbon Dioxide 24 (22-30) mmol/L Anion Gap 12 (4-12) mmol/L BUN 17 (7-17) mg/dL Creatinine 0.67 L (0.7-1.0) mg/dL Estim Creat Clear Calc 126 ml/min Estimated GFR > 60 (59 - ) Glucose 86 (65-110) mg/dL Calcium 9.9 (8.4-10.2) mg/dL Magnesium 2.0 (1.6-2.3) mg/dL Total Bilirubin 1.3 (0.2-1.3) mg/dL AST 39 H (14-36) U/L ALT 34 (6-35) U/L Alkaline Phosphatase 49 (38-126) U/L Total Protein 8.6 H (6.3-8.2) g/dL Albumin 5.0 (3.5-5.1) g/dL Lipase 48 (23-300) U/L Urine Color Dark yellow (Yellow) Urine Appearance Clear (Clear) Urine pH 6.0 (5.0-9.0) Ur Specific [place] 1.031 (1.001-1.035) Urine Protein 1+ H (Negative) mg/dL Urine Glucose (UA) Negative (Negative) mg/dL Urine Ketones Trace H (Negative) mg/dL Ur Blood (Man) 3+ H (Negative) Urine Nitrate Negative (Negative) Urine Bilirubin Negative (Negative) Urine Urobilinogen 1.0 (<2.0) mg/dL Leukocyte Esterase Rfl 1+ H (Negative) GWENDOLYN/UL Urine RBC 11-20 H (0-2) /hpf Urine WBC 6-10 H (0-3) /hpf Ur Squamous Epith Cells Moderate (Few) /hpf Urine Bacteria 1+ H /hpf Urine Casts 0-2 POC Urine HCG, Qual Negative (Negative) <Patel Callejas MD - Last Filed: 08/04/24 20:49> Discharge Plan Discharge Clinical Impression: Nausea & vomiting, Medication side effect <Kelly Rushing PA-C - Last Filed: 08/04/24 18:42> Patient Disposition: Home <MELISSA Herrera Last Filed: 08/04/24 18:42> Condition: Stable <MELISSA Herrera Last Filed: 08/04/24 18:42> Instructions: Antibiotic Form, Acute Nausea and Vomiting (ED) <MELISSA Herrera Last Filed: 08/04/24 18:42> Additional Instructions: You were seen in the emergency department for nausea and vomiting. This is likely result of your increased Ozempic dose. Please use Zofran as needed. Please for please be their primary care physician before taking your next dose of Ozempic. Please eat a bland diet until condition improves. <Kelly Rushing PA-C - Last Filed: 08/04/24 18:42> Patient Language: Israeli <Kelly Rushing PA-C - Last Filed: 08/04/24 18:42> Prescriptions: New ondansetron 4 mg tablet,disintegrating 4 mg PO Q8H PRN (Reason: nausea and vomiting) Qty: 30 0RF No Action acetaminophen 500 mg tablet 1,000 mg PO TID PRN (Reason: samantha) 7 Days Qty: 42 0RF ibuprofen 800 mg tablet 800 mg PO TID PRN (Reason: pain) 7 Days Qty: 21 0RF ondansetron 4 mg tablet,disintegrating 4 mg PO Q8H PRN (Reason: nausea and vomiting) Qty: 30 0RF <MELISSA Herrera Last Filed: 08/04/24 18:42> Follow-up/Referrals: UNKNOWN,DOCTOR [Non-Staff] - <Kelly Rushing PA-C - Last Filed: 08/04/24 18:42>
--- NOTE | 2024-08-04 18:36 | ECG_ITS ---
Test Date: 2024-08-04 19:03:16 Measurements Intervals George Rate: 92 P: 42 AK: 178 QRS: 21 QRSD: 90 T: 35 QT: 372 QTc: 462 Interpretive Statements SINUS RHYTHM DELAYED PRECORDIAL R/S TRANSITION BASELINE ARTIFACT- I, II, AVR BORDERLINE ECG No previous ECG available for comparison Electronically Signed On 08-05-2024 06:01:19 CDT by Jose Manuel Archuleta D.O.
[2024-08-04 18:44] VITALS: BP 126/83; PULSE 98; RESP 14; O2SAT 96
[2024-08-04 18:51] LABS: Basophils Percent Auto 0.3 % (0.2-1.2); Eosinophils Absolute Auto 0.1 K/mm3 (0-0.3); Eosinophils Percent Auto 0.8 % (0-4.4); Hematocrit 47.3 % (37.0-47.0); Hemoglobin 15.1 g/dL (12.0-15.0); Immature Granulocyte Absolute 0.04 K/mm3 (0.00-0.031); Immature Granulocyte Percent A 0.4 % (0-0.5); Lymphocytes Absolute Auto 2.63 K/mm3 (0.9-3.2); Lymphocytes Percent Auto 25.5 % (18.3-44.2); Mean Corpuscular HGB Conc 31.9 g/dl (32-36); Mean Corpuscular Hemoglobin 28.4 pg (26-34); Mean Corpuscular Volume 89.1 fl (80-100); Mean Platelet Volume 11.2 fl (7.4-10.4); Monocytes Absolute Auto 0.7 K/mm3 (0.1-0.6); Monocytes Percent Auto 6.6 % (2.6-8.5); Neutrophils Absolute Auto 6.9 K/mm3 (1.3-6.7); Neutrophils Percent Auto 66.4 % (45.5-73.1); Platelet Count Result 229 k/mm3 (150-375); Red Blood Count 5.31 M/mm3 (4.2-5.4); Red Cell Distribution Width 13.1 % (11.5-14.5); White Blood Count 10.3 K/mm3 (4.5-10.0)
[2024-08-04] MEDS: ONDANSETRON INJ 4 MG/2 ML VIAL IV PUSH (18:54)
[2024-08-04] MEDS: SODIUM CHLORIDE 0.9% IV 1,000 ML 999 ML IV CONT (18:54)
[2024-08-04 19:04] LABS: Alanine Aminotransferase 34 U/L (6-35); Alkaline Phosphatase 49 U/L (38-126); Anion Gap 12 mmol/L (4-12); Aspartate Amino Transferase 39 U/L (14-36); Bilirubin,Total 1.3 mg/dL (0.2-1.3); Blood Urea Nitrogen 17 mg/dL (7-17); Calcium 9.9 mg/dL (8.4-10.2); Carbon Dioxide 24 mmol/L (22-30); Chloride 105 mmol/L (98-107); Estimated CRCL calculation 126 ml/min; Estimated Glomerular Filt Rate > 60; Glucose 86 mg/dL (65-110); Lipase 48 U/L (23-300); Potassium 4.5 mmol/L (3.4-5.0); Sodium 141 mmol/L (137-145); Total Protein 8.6 g/dL (6.3-8.2)
[2024-08-04 19:07] VITALS: BP 123/76; PULSE 84
[2024-08-04 19:08] VITALS: BP 135/79; PULSE 91
[2024-08-04 19:09] VITALS: BP 120/81; PULSE 99
[2024-08-04 19:27] LABS: BEDSIDEPREGUCG Negative (Negative)
[2024-08-04 19:34] LABS: Add Urine Microscopic? YES; Appearance Urine Clear (Clear); Bacteria Urine 1+ /hpf; Bilirubin Urine Negative (Negative); Blood Urine 3+ (Negative); Color Urine Dark Yellow (Yellow); Glucose Urine UA Negative (Negative); Ketones Urine Trace mg/dL (Negative); Leukocyte Esterase Ur 1+ LEU/UL (Negative); Nitrate Urine Negative (Negative); Non Pathogenic Casts 0-2; Protein Urine 1+ mg/dL (Negative); Specific Grav Ur 1.031 (1.001-1.035); Squamous Epithelial Cell Urine Moderate /hpf (Few)
[2024-08-04] MEDS: PROCHLORPERAZINE EDISYLATE 10 MG/2 ML VIAL IM (19:55)
[2024-08-04] MEDS: diphenhydrAMINE HCl INJ 50 MG/ML VIAL 25 MG IV PUSH (19:55)
[2024-08-04 21:35] VITALS: BP 128/87; PULSE 80; RESP 18; O2SAT 99
--- NOTE | 2024-08-04 21:37 | PC.NURSE ---
THis RN spoke with Dena from poison control to give update on pt at 20:55.
== END 2024-08-04 21:35 | disposition home or self-care (01) ==
PROVIDERS: Physician Assistant; Emergency Provider Emergency Medicine
DX: R11.2 Nausea with vomiting, unspecified (principal); T50.995A Adverse effect of other drugs, medicaments and biological substances, initial encounter; E28.2 Polycystic ovarian syndrome; Z86.14 Personal history of Methicillin resistant Staphylococcus aureus infection; Z87.442 Personal history of urinary calculi; Z87.440 Personal history of urinary (tract) infections; Z87.891 Personal history of nicotine dependence
CPT/HCPCS: 36415; 70450; 72125; 80053; 81001; 81025; 83690; 83735; 85025; 93005; 96361; 96372; 96374; 96375; 99284; J0780; J1200; J2405; J7030